=== PATIENT | female | born 1935 | race Caucasian/White ===

== ENCOUNTER 2016-06-29 21:17 | Emergency (ER) | payer MEDICARE ==
[~2016-06-29] VITALS: Ht 167.6 cm; Wt 90.7 kg
[2016-06-29] MEDS ORDERED: LEVO25TA5 (21:42)
[2016-06-29] MEDS ORDERED: ASPIRIN 81 MG CHEW TABLET PO ONE (21:45)
[2016-06-29 22:23] LABS: INR 0.9
[2016-06-29 22:25] LABS: BASO # 0.1 K/mm3 (0.0-0.2); BASO % 0.9 % (0.0-1.0); EOS # 0.4 K/mm3 (0.0-0.50); EOS % 6.2 % (0.0-3.0); LARGE UNSTAINED CELL # 0.2 K/mm3 (0.0-0.4); LARGE UNSTAINED CELL % 2.4 % (0.0-4.0); LYMPH # 2.3 K/mm3 (1.5-4.5); LYMPH % 29.2 % (24.0-44.0); MEAN CORPUSCULAR HEMOGLOBIN 30.2 pg (27.0-33.0); MEAN CORPUSCULAR HGB CONC 33.4 g/dl (32.0-36.5); MEAN CORPUSCULAR VOLUME 90.3 fl (80.0-96.0); MONO # 0.8 K/mm3 (0.0-0.8); MONO % 11.2 % (0.0-5.0); NEUTROPHILS # 3.6 K/mm3 (1.8-7.7); NEUTROPHILS % 50.2 % (36.0-66.0); PLATELET COUNT, AUTOMATED 171 k/mm3 (150-450); RED CELL DISTRIBUTION WIDTH 13.5 % (11.5-14.5); WHITE BLOOD COUNT 7.2 K/mm3 (4.0-10.0)
[2016-06-29 22:30] VITALS: BP 133/62
[2016-06-29 22:37] LABS: ANION GAP 8 MEQ/L (8-16); BLOOD UREA NITROGEN 14 MG/DL (7-18); CALCIUM LEVEL 8.3 MG/DL (8.8-10.2); CARBON DIOXIDE LEVEL 28 MEQ/L (21-32); CHLORIDE LEVEL 106 MEQ/L (98-107); CREATININE FOR GFR 0.81 MG/DL (0.55-1.02); GLOMERULAR FILTRATION RATE > 60.0 (>39); GLUCOSE, FASTING 129 MG/DL (83-110); POTASSIUM SERUM 3.7 MEQ/L (3.5-5.1); SODIUM LEVEL 142 MEQ/L (136-145)
[2016-06-29] MEDS ORDERED: ISOVUE-370 76% 100ML VIAL (Q9967) As Ordered ONE (23:25)
--- NOTE | 2016-06-29 23:50 | REPUSA ---
CT angiogram of the chest Clinical statement: Chest pain and shortness of breath. Technique: Multiple axial CT images were obtained from the thoracic inlet through the upper abdomen a fter a bolus administration of nonionic intravenous contrast. Coronal and sagittal reconstructions we re also obtained. No comparison is available. Findings: The pulmonary arteries are well-opacified with contrast, with no intraluminal filling defec ts to suggest embolism. The thoracic aorta is unremarkable. Thyroid gland is within normal limits. Th ere is no thoracic lymphadenopathy. There are no pericardial or pleural effusions. The lungs are hattie r. Limited imaging of the upper abdomen is unremarkable. There are no suspicious osseous lesions. Impression: Unremarkable CT examination of the chest. No evidence of pulmonary embolism.
--- NOTE | 2016-06-30 08:51 | REP ---
CHEST, SINGLE VIEW: There is no evidence of acute infiltrate. No pleural effusion is seen. The heart is normal in size. The mediastinal silhouette is unremarkable. The visualized osseous structures are intact. IMPRESSION: No acute pulmonary disease. Signed by Ronaldo Garces MD 06/30/2016 10:13 A
--- NOTE | 2016-06-30 11:07 | ECGEPIP ---
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
--- NOTE | 2016-07-01 20:03 | ECGEPIP ---
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
== END 2016-06-30 03:06 | disposition home or self-care (01) ==
LOC: M ED 21:54
DX: R07.9 Chest pain, unspecified (principal); R06.02 Shortness of breath; Z86.73 Personal history of transient ischemic attack (TIA), and cerebral infarction without residual deficits
CPT/HCPCS: 71010; 71275; 80048; 82550; 82553; 83880; 84484; 85025; 85610; 93005; 93041; 94760; 99285; Q9967

== ENCOUNTER 2016-07-09 11:56 | Inpatient (IN) | payer MEDICARE ==
[~2016-07-09] VITALS: Ht 167.6 cm; Wt 103.2 kg
[2016-07-09] MEDS: MULTIVITAMINS/MINERALS THERAP 1 TAB PO SCH (09:00)
[2016-07-09] MEDS: THIAMINE 100 MG TAB PO SCH (09:00)
[2016-07-09] MEDS: FOLIC ACID 1 MG TAB PO SCH (09:00)
[~2016-07-09 11:56] MED LIST: LEVO25TA5 PO
[2016-07-09] MEDS ORDERED: ONDANSETRON 4MG/2ML VIAL (J2405) IV ONE (13:15)
[2016-07-09] MEDS ORDERED: NS 1,000 ML IV SCH (13:15)
[2016-07-09] MEDS ORDERED: NS 500 ML IV ONE (13:30)
[2016-07-09] MEDS ORDERED: PROMETHAZINE INJ 25 MG/ML VIAL (J2550) IV ONE (13:30)
--- NOTE | 2016-07-09 13:36 | REP ---
Chest x-ray: Two views. History: Fever and cough. Comparison chest x-ray June 29, 2016. Findings: EKG monitoring electrodes overlie the chest. Lungs are well inflated and clear. The pleural angles are sharp. Heart is not enlarged. The aorta is somewhat tortuous. Pulmonary vasculature is not increased. Impression: No active disease. Signed by Pricne Youngblood MD 07/09/2016 02:05 P
[2016-07-09 13:40] LABS: ANION GAP 12 MEQ/L (8-16); BLOOD UREA NITROGEN 16 MG/DL (7-18); CALCIUM LEVEL 8.4 MG/DL (8.8-10.2); CARBON DIOXIDE LEVEL 23 MEQ/L (21-32); CHLORIDE LEVEL 106 MEQ/L (98-107); CREATININE FOR GFR 1.05 MG/DL (0.55-1.02); GLOMERULAR FILTRATION RATE 53.8 (>39); GLUCOSE, FASTING 98 MG/DL (83-110); POTASSIUM SERUM 3.9 MEQ/L (3.5-5.1); SODIUM LEVEL 141 MEQ/L (136-145)
[2016-07-09 13:55] LABS: MEAN CORPUSCULAR HGB CONC 34.5 g/dl (32.0-36.5); MEAN CORPUSCULAR VOLUME 89.9 fl (80.0-96.0); PLATELET COUNT, AUTOMATED 159 k/mm3 (150-450); RED CELL DISTRIBUTION WIDTH 13.3 % (11.5-14.5); WHITE BLOOD COUNT 9.4 K/mm3 (4.0-10.0)
[2016-07-09] MEDS ORDERED: VANCOMYCIN HCL 1,000 MG, VIAL MATE ADAPTER 1 EACH in D5W 250 ML IV ONE (14:00)
[2016-07-09] MEDS ORDERED: NS IV ONE (14:00)
[2016-07-09] MEDS ORDERED: ACETAMINOPHEN 650 MG SUPP PR ONE (14:00)
[2016-07-09] MEDS ORDERED: CEFEPIME HCL 2 GM in D5W MINI-BAG PLUS 50 ML IV ONE (14:00)
[2016-07-09] MEDS ORDERED: DILUENT IV ONE (14:00)
[2016-07-09 14:19] LABS: BANDS 2 % (< 11); PLATELET CLUMPS SMALL AMT
[2016-07-09 14:30] LABS: ABG BASE EXCESS -3.6 (-2.0-2.0); ABG PARTIAL PRESSURE CO2 32.1 mmHg (35.0-45.0); ABG PARTIAL PRESSURE O2 78.5 mmHg (75.0-100.0); ABG STANDARD HCO3 21.5 MEQ/L (22.0-26.0); ABG pH (ARTERIAL) 7.412 UNITS (7.350-7.450)
[2016-07-09] MEDS ORDERED: MORPHINE 2 MG/ML 1ML SYRINGE IV PRN (15:45)
[2016-07-09] MEDS ORDERED: GLUC1CAP9 PO (15:56)
[2016-07-09] MEDS ORDERED: VITA100066 PO (15:56)
--- NOTE | 2016-07-09 16:16 | HPE ---
DATE OF ADMISSION: 07/09/2016 PRIMARY CARE PROVIDER: Dr. Noguera. CODE STATUS: Full code. CHIEF COMPLAINT: Abdominal pain. HISTORY OF PRESENT ILLNESS: Nausea, vomiting, abdominal pain with cramping, subjective fevers, chills, shakes for the last two days. She had a bowel movement this morning without any difficulty. Denied any hematochezia or melena. She has had some frequency but no dysuria or hematuria. She stated that she was seen in the emergency department approximately 10 days ago for chest complaints and her workup was negative for acute coronary syndrome or any other organic causes at that time. Her is with her presently. He stated that he has noticed over the last couple of days that she has had these subjective fevers, chills or rigors, and abdominal pain as stated above and he decided to bring her in today because she was having difficulty maintaining oral intake and had continued to run fevers at home unresponsive to Tylenol. PAST MEDICAL HISTORY: Hypothyroidism, osteoarthritis and questionable irritable bowel syndrome. PAST SURGICAL HISTORY: Status post appendectomy, right knee surgery. FAMILY HISTORY: Noncontributory. SOCIAL HISTORY: She is . She quit smoking 50 years ago. She drinks vodka with lemon juice 2-3 times a week, sometimes more. She denies recent travel, sick contacts. ALLERGIES: No known drug allergies. CURRENT HOME MEDICATIONS: Are listed as Synthroid 25 mcg daily. REVIEW OF SYSTEMS: CONSTITUTIONAL: As indicated above. She has had subjective fevers, chills, rigors with sweats throughout the day and decreased appetite. HEENT: She denies lightheaded, dizziness, blurry vision, double vision, and no difficulty with speech or swallow. PULMONARY: She denies productive sputum, cough or hemoptysis or wheeze. CARDIOVASCULAR: She denies substernal chest pain. She denies paroxysmal nocturnal dyspnea (PND), orthopnea or lower extremity edema. Gastrointestinal (GI): She has had some nausea, vomiting, some back pain. She states bowel movements have been regular. She denies any hematochezia or melena. GENITOURINARY (): No dysuria or hematuria. MUSCULOSKELETAL: Generalized weakness with no bone pain, muscle swelling or erythema. NEUROLOGIC: No paresthesias or paralysis. ENDOCRINE: Negative for diabetes. Positive for thyroid disorder. LYMPHATIC: She denies neck swelling, swelling in the groin or night sweats or weight loss outside of her subjective fevers. HEMATOLOGY: No history of bleeding, bruising disorder. No prior history of venous thromboembolism. ONCOLOGY: No prior history of cancer. PSYCHIATRIC: No history of depression, anxiety. She denies suicidal ideation. No audiovisual hallucinations. She does, however, indicate that she does drink alcohol on almost a daily basis. Review of systems complete. Pertinent positives are listed above. PHYSICAL EXAMINATION: VITAL SIGNS: Temperature is 101.2 orally, pulse 84, blood pressure 153/88, SPO2 is 95% on room air. GENERAL: The patient appears to be in no acute distress. She is alert and oriented, pleasant to talk to. HEENT: Head is atraumatic, normocephalic. Eyes: Pupils equal, round, reactive to light and accommodation. Throat clear. NECK: Supple. LUNGS: Clear. HEART: Regular rate and rhythm. ABDOMEN: She does have some vague palpable tenderness across the lower abdomen with suprapubic tenderness. Positive bowel sounds. No masses or rebound. BACK : Shows no costovertebral angle tenderness. EXTREMITIES: No edema. No calf tenderness. NEUROLOGIC: Cranial nerves II-XII are grossly intact. No gross neurosensory deficits noted. LABORATORY AND DIAGNOSTICS: White count is 9.4, hemoglobin 14.3, platelets are 159,000. Sodium is 141, potassium 3.9, chloride 106, bicarb 23, anion gap 12, BUN 16, creatinine 1.05, glucose 98, lactic acid 3.3. CK is 99, CK-MB is 1.6, troponin 0.03. CRP is less than 0.30. ABG shows a blood gas with pH of 7.412, pCO2 32.1, pO2 of 78.5. Urinalysis 2+ blood, positive nitrates, 1+ leukocyte esterase, 38 WBC, 2+ bacteria. Culture Is pending at this time. Blood cultures pending times two. Influenza A and B are negative. Chest x-ray: No active disease. No cardiopulmonary abnormalities noted. IMPRESSION: Ms. Davis is a 80-year-old female who presents to the emergency department after having two days of increased lethargy, subjective fevers at home and does appear to be somewhat septic with a lactic acidosis in the emergency department. We will plan on admitting her to observation overnight. Will bolus with intravenous (IV) fluids. She did receive some fluid already in the emergency department. She will need some antibiotics as well. PROBLEM LIST: 1. Urinary tract infection. 2. Sepsis. 3. Hypothyroidism. 4. Osteoarthritis. 5. History of irritable bowel syndrome. 6. History of alcohol use. PLAN: The patient will be admitted to the progressive care unit (PCU) with sepsis protocol and placed per Dr. Timmons's service. Will repeat lactic acid in six hours. She has had 2.5 liters of normal saline at this point. Will continue on normal saline 80 mL an hour. Change her antibiotic coverage to Rocephin. Check blood cultures, urine culture. Continue home medications. Will also start her on thiamine, folic acid, multivitamin, Serax as needed for agitation and monitor for alcohol withdrawal. Deep venous thrombosis (DVT) prophylaxis as Lovenox. DISPOSITION: Anticipate home discharge tomorrow pending any further complications. JACINDA
[2016-07-09] MEDS: NS 1,000 ML IV SCH (17:22)
[2016-07-09 19:55] VITALS: BP 115/63
[2016-07-09] MEDS: cefTRIAXone SOD 1 GM in D5W MINI-BAG PLUS 50 ML IV SCH (20:21)
[2016-07-09] MEDS: DOCUSATE SODIUM 100 MG CAP PO SCH (20:22)
[2016-07-09] MEDS: ACETAMINOPHEN TAB 650MG DOSE (2X325MG) PO PRN (20:22)
[2016-07-09] MEDS: IBUPROFEN 600 MG TAB PO PRN (20:23)
[2016-07-09 23:17] VITALS: BP 98/54
[2016-07-10] VITALS (8 sets, daily range): BP systolic 92–144; BP diastolic 48–67
[2016-07-10] MEDS: ACETAMINOPHEN TAB 650MG DOSE (2X325MG) PO PRN (01:41)
[2016-07-10] MEDS: NS 1,000 ML IV SCH ×3 (04:19→17:48)
[2016-07-10 05:41] LABS: CALCIUM LEVEL 7.5 MG/DL (8.8-10.2); CREATININE FOR GFR 1.53 MG/DL (0.55-1.02); GLOMERULAR FILTRATION RATE 34.9 (>39); POTASSIUM SERUM 4.1 MEQ/L (3.5-5.1)
[2016-07-10] MEDS: LEVOTHYROXINE 0.025 MG TAB (25 MCG) PO SCH (05:54)
[2016-07-10] MEDS: CALCIUM CARBONATE 500 MG CHEW U/D PO PRN ×2 (06:53)
[2016-07-10 07:10] LABS: MEAN CORPUSCULAR HEMOGLOBIN 30.5 pg (27.0-33.0); MEAN CORPUSCULAR HGB CONC 33.2 g/dl (32.0-36.5); MEAN CORPUSCULAR VOLUME 92.1 fl (80.0-96.0); RED CELL DISTRIBUTION WIDTH 13.8 % (11.5-14.5); WHITE BLOOD COUNT 22.5 K/mm3 (4.0-10.0)
[2016-07-10] MEDS: ENOXAPARIN 40 MG/0.4 ML SYRINGE (J1650) SC SCH (08:15)
[2016-07-10] MEDS ORDERED: SODIUM CHLORIDE 0.9% 1000 ML IV ONE (08:30)
[2016-07-10] MEDS: OXAZEPAM 10 MG CAP PO PRN (09:09)
[2016-07-10] MEDS: MULTIVITAMINS/MINERALS THERAP 1 TAB PO SCH (09:09)
[2016-07-10] MEDS: FOLIC ACID 1 MG TAB PO SCH (09:09)
[2016-07-10] MEDS: IBUPROFEN 600 MG TAB PO PRN (09:10)
[2016-07-10] MEDS: DOCUSATE SODIUM 100 MG CAP PO SCH ×2 (09:10→21:00)
[2016-07-10] MEDS: THIAMINE 100 MG TAB PO SCH (09:10)
[2016-07-10] MEDS: PERCOCET 5MG/325MG TAB PO PRN ×3 (10:13→21:00)
[2016-07-10 12:58] LABS: INR 1.48
[2016-07-10 13:13] LABS: ALBUMIN 2.8 GM/DL (3.2-5.2); ALBUMIN/GLOBULIN RATIO 0.97 (1.00-1.93); BILIRUBIN,DIRECT 0.2 MG/DL (0.0-0.2); BILIRUBIN,TOTAL 0.5 MG/DL (0.2-1.0); TOTAL PROTEIN 5.7 GM/DL (6.4-8.2)
--- NOTE | 2016-07-10 14:15 | IPN ---
DATE: 07/10/2016 This is a 80-year-old female admitted yesterday for acute onset abdominal pain, urinary tract infection and sepsis. No overnight issues were reported. She denies chest pain, nausea, vomiting. She feels that her abdominal pain and back pain is much improved from yesterday. OBJECTIVE: Temperature is 99.3, pulse 79, respiratory rate 20, blood pressure 92/48, SpO2 is 98% on room air. GENERAL: The patient appears to be in no acute distress. She is alert, pleasant. HEENT: Unremarkable. LUNGS: Clear to auscultation. HEART: Regular rate and rhythm. ABDOMEN: Vague suprapubic tenderness. Positive bowel sounds. No masses. No rebound. No CVA tenderness. White count is 22.5, hemoglobin 12.2, platelets 83,000. Sodium is 141, potassium 4.1, chloride 108, bicarb 21, anion gap 12, BUN is 22, creatinine 1.53, glucose 97, lactic acid 3.9 this morning down from 4.8. Blood cultures preliminary on one did show gram negative rods. The other blood culture is pending. Urine culture pending at this time. Influenza A and B negative. ASSESSMENT/PLAN: 1. Sepsis with lactic acidosis related to urinary tract infection. Continue with current antibiotics. Preliminary blood culture is positive for gram-negative rods. The Rocephin should cover this nicely. She remains afebrile. Will go ahead and give her another bolus today due to having slightly low pressures, but we will want to keep an eye on this and see how she does throughout the day. 2. Thrombocytopenia. Will hold heparin. Will go ahead and check a fibrinogen level on her as well as a liver profile and coagulopathy studies. My concern is that she may be at risk for DIC. 3. Hypothyroidism. Continue on Synthroid. 4. Osteoarthritis. Stable. 5. History of possible irritable bowel syndrome. No issues currently. 6. History of alcohol use. She did have some slight agitation this morning. We do have p.r.n. Serax ordered as well as thiamine, multivitamin and folic acid. DISPOSITION: The patient does continue to be quite ill at this point. Her prognosis is guarded, however, will continue to follow her closely through the day today to see if we need to make any further adjustments. [facility]
--- NOTE | 2016-07-10 19:46 | ECGEPIP ---
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
[2016-07-10] MEDS: cefTRIAXone SOD 1 GM in D5W MINI-BAG PLUS 50 ML IV SCH (20:59)
[2016-07-11] VITALS (16 sets, daily range): BP systolic 100–170; BP diastolic 62–94
[2016-07-11] MEDS ORDERED: METOPROLOL 5 MG/5 ML VIAL IV STA (02:09)
[2016-07-11] MEDS: NS 1,000 ML IV SCH ×2 (03:06→12:20)
[2016-07-11] MEDS: LEVOTHYROXINE 0.025 MG TAB (25 MCG) PO SCH (05:17)
[2016-07-11 05:59] LABS: CALCIUM LEVEL 8.3 MG/DL (8.8-10.2); CREATININE FOR GFR 1.19 MG/DL (0.55-1.02); GLOMERULAR FILTRATION RATE 46.6 (>39); POTASSIUM SERUM 3.7 MEQ/L (3.5-5.1)
[2016-07-11 06:06] LABS: MEAN CORPUSCULAR VOLUME 93.7 fl (80.0-96.0); RED CELL DISTRIBUTION WIDTH 14.2 % (11.5-14.5); WHITE BLOOD COUNT 20.2 K/mm3 (4.0-10.0)
[2016-07-11] MEDS: OXAZEPAM 10 MG CAP PO PRN ×2 (07:19→18:07)
[2016-07-11] MEDS: THIAMINE 100 MG TAB PO SCH (08:46)
[2016-07-11] MEDS: MULTIVITAMINS/MINERALS THERAP 1 TAB PO SCH (08:47)
[2016-07-11] MEDS: DOCUSATE SODIUM 100 MG CAP PO SCH ×2 (08:47→21:58)
[2016-07-11] MEDS: FOLIC ACID 1 MG TAB PO SCH (08:47)
[2016-07-11] MEDS: ENOXAPARIN 40 MG/0.4 ML SYRINGE (J1650) SC SCH (08:47)
[2016-07-11 09:44] LABS: THYROXINE (T4) 7.1 UG/DL (4.5-12.0)
[2016-07-11] MEDS: APIXABAN 5 MG TAB (ELIQUIS) PO SCH ×2 (09:56→21:58)
--- NOTE | 2016-07-11 10:58 | IPN ---
DATE: 07/11/2016 80-year-old female seen at bedside. No overnight issues. However, the nursing did call me early this morning because she was having hallucinations and went into atrial fibrillation. She denies any chest pain, nausea, vomiting, no shortness of breath and it has been 2-3 days since she last had her vodka which we did have a discussion the emergency department yesterday about cessation of alcohol. OBJECTIVE: It was earlier 110-112 and irregular, respiratory rate is 18 and nonlabored, BP 129/83, SPO2 is 94% on room air. General: The patient appears to be in no acute distress. Is alert and oriented. HEENT: Unremarkable. Lungs: Clear to auscultation. Heart is irregular regular. Abdomen: Soft. Extremities: No edema or calf tenderness. LABORATORY DATA: White count is 20.2, hemoglobin 12.3, platelets are 69,000. Sodium is 145, potassium 3.7, chloride 116, bicarb 20, anion gap 9, BUN is 26, creatinine 1.19, glucose 117, calcium 8.3. Cardiac marker panel is pending at this time. Thyroid panel pending. 12-lead EKG a fib with RVR. I did order a 2-D echo that is pending. ASSESSMENT/PLAN: 1. Sepsis with lactic acidosis related to urinary tract infection. Continue on Rocephin. Blood cultures positive for E-coli which is pansensitive, again continue on Rocephin. 2. Thrombocytopenia. Hold on any heparin products. Continue STACIE sequentials 3. Hypothyroidism. Continue on Synthroid. Again thyroid panel is pending. 4. Osteoarthritis, stable. 5. New onset atrial fibrillation with RVR, 2-D echo is pending. I do wonder if this is related to alcohol withdrawal since she did have some mild visual hallucinations this morning, in any rate we will do a 2-D echo, 12-lead EKG, and cardiac marker panel as well as thyroid panel as outlined. 6. History of alcohol use/abuse with possible withdrawal symptoms. Continue on thiamine, folic acid, continue on as needed Serax. DISPOSITION As outlined the patient will need to have further workup for atrial fibrillation. Her CHADS VASc score is 3 and she will likely need to be anticoagulated with Eliquis. We did have a long discussion regarding cessation of alcohol and education and counseling was provided. JACINDA
[2016-07-11] MEDS: guaiFENesin ER 600 MG TAB PO PRN ×2 (13:58→21:58)
--- NOTE | 2016-07-11 15:09 | ECGEPIP ---
Stationary ECG Study [facility] Test Date: 2016-07-11 Pat Name: LIA BASILIO Department: Room: [place] [address] Gender: F Post Acute Care Nurse: ALBERT : 1935 Requested By: ARIADNA WALKER Order Number: [id number] Reading MD: Mitch Queen Measurements Intervals [place] Rate: 126 P: IA: 0 QRS: 28 QRSD: 100 T: -29 QT: 280 QTc: 406 Interpretive Statements Underlying atrial fibrillation with somewhat rapid ventricular response Nonspecific ST/T-wave abnormalities. Rhythm change from 07/09/16 Clinical correlation advised Electronically Signed On 07-11-2016 15:09:12 EDT by Mitch Queen
[2016-07-11] MEDS: cefTRIAXone SOD 1 GM in D5W MINI-BAG PLUS 50 ML IV SCH (21:57)
[2016-07-12] VITALS (7 sets, daily range): BP systolic 130–190; BP diastolic 56–102
[2016-07-12] MEDS: SODIUM CHLORIDE NASAL 0.65% SPRAY BTL (OCEAN) PRN ×2 (00:07→03:39)
[2016-07-12] MEDS: OXAZEPAM 10 MG CAP PO PRN ×4 (00:29→23:53)
[2016-07-12] MEDS: NS 1,000 ML IV SCH ×2 (03:13→04:20)
[2016-07-12] MEDS ORDERED: IPRATROPIUM 0.5MG/ALBUTEROL 2.5MG INH SOL UD 3ML (DUONEB)(J7620) NEB PRN (04:00)
[2016-07-12] MEDS: LEVOTHYROXINE 0.025 MG TAB (25 MCG) PO SCH (05:36)
[2016-07-12 06:07] LABS: MEAN CORPUSCULAR HEMOGLOBIN 30.4 pg (27.0-33.0); MEAN CORPUSCULAR HGB CONC 33.2 g/dl (32.0-36.5); MEAN CORPUSCULAR VOLUME 91.8 fl (80.0-96.0); RED CELL DISTRIBUTION WIDTH 14.2 % (11.5-14.5); WHITE BLOOD COUNT 20.9 K/mm3 (4.0-10.0)
[2016-07-12 06:08] LABS: ANION GAP 8 MEQ/L (8-16); BLOOD UREA NITROGEN 15 MG/DL (7-18); CALCIUM LEVEL 8.6 MG/DL (8.8-10.2); CARBON DIOXIDE LEVEL 19 MEQ/L (21-32); CHLORIDE LEVEL 115 MEQ/L (98-107); CREATININE FOR GFR 0.71 MG/DL (0.55-1.02); GLOMERULAR FILTRATION RATE > 60.0 (>39); GLUCOSE, FASTING 98 MG/DL (83-110); POTASSIUM SERUM 3.8 MEQ/L (3.5-5.1); SODIUM LEVEL 142 MEQ/L (136-145)
[2016-07-12] MEDS: ENOXAPARIN 40 MG/0.4 ML SYRINGE (J1650) SC SCH (09:00)
[2016-07-12] MEDS: DOCUSATE SODIUM 100 MG CAP PO SCH ×2 (09:14→20:47)
[2016-07-12] MEDS: FOLIC ACID 1 MG TAB PO SCH (09:16)
[2016-07-12] MEDS: THIAMINE 100 MG TAB PO SCH (09:16)
[2016-07-12] MEDS: MULTIVITAMINS/MINERALS THERAP 1 TAB PO SCH (09:16)
--- NOTE | 2016-07-12 09:27 | IPN ---
DATE: 07/12/2016 Rochelle seen in progressive care unit (PCU). She is on the hospitalist service. Primary care provider is Dr. Malcolm Mullins' office. She was admitted with sepsis secondary to urinary source. Has Escherichia (E) coli bacteremia and E. coli in her urine. She has remote history of urinary tract infection (UTI). She cannot tell me when this occurred. She had paroxysmal atrial fibrillation, but converted to sinus rhythm soon after admission. Has remained in sinus rhythm overnight. PHYSICAL EXAMINATION: 154/90, pulse 84, respiratory rate 22, 98 degrees, 93% oxygen saturation. GENERAL APPEARANCE: Elderly, resting comfortably. Answers a bit vague, lack content. No jugular venous distention (JVD). LUNGS: Clear. HEART: Regular rate and rhythm. No murmur. ABDOMEN: Soft, nontender. No masses. No costovertebral angle (CVA) tenderness. LABORATORIES: White count 20.9, hemoglobin 12, platelets 78. Sodium 142, potassium 3.8, BUN 15, creatinine 0.7, glucose 98. Thyroid stimulating hormone (TSH) minimally elevated at 3.9. IMPRESSION: 1. Sepsis secondary to Escherichia (E) coli urinary tract infection (UTI) and E. coli bacteremia. She is on Rocephin. It is day number four. This probably could be switched to an oral antibiotic tomorrow. Renal ultrasound has been ordered to look for obstruction. 2. Paroxysmal atrial fibrillation. I think this was secondary to sepsis. There was some discussion of possible alcohol withdrawal, as well, so I am not sure alcohol intake is really all that high. I think it is often due to sepsis. In any case, she is in sinus rhythm now and the last echocardiogram shows significant left atrial enlargement and decreased ejection fraction. This probably does not warrant shelter anticoagulant therapy. She uses a walker, was unsteady on her feet and definitely is a fall risk. 3. Hypothyroidism. Would avoid adjusting her Synthroid. Thyroid stimulating hormone (TSH) minimally elevated and it could be secondary to her illness. I will let her outpatient physician deal with that. 4. Thrombocytopenia secondary to sepsis. Heparin is held. She was started on Eliquis. As noted above, she has been in sinus rhythm since her sepsis started. I am going to stop her Eliquis. I think she is at risk for bleeding secondary to thrombocytopenia and falls. Again, her last echocardiogram shows an expected finding of increased thromboembolic risk. I am not sure that she would be that well served by shelter anticoagulation. 5. Questionable alcohol withdrawal. She is on thiamin and Serax. Alcohol intake is only a few times a week, when she used to go to the [facility]. Last appointment over two years ago (her alcohol intake at that time was listed as low). I think her altered mental status was probably from her sepsis.
--- NOTE | 2016-07-12 18:52 | ECHO ---
DATE OF PROCEDURE: 07/12/2016 REFERRING PHYSICIAN: Pawel Timmons DO INDICATION: Abnormal ECG study. HEIGHT: 168 cm WEIGHT: 92 kg DIMENSIONS: IVS: 1.1 LV: 4.2 LVPW: 1.0 LA: 4.2 Aorta: 3.1 E-prime septal velocity: 6.7 cm/s E-rime lateral velocity: 8.0 cm/s LA and systolic volume index 44.3 mm/m2 FINDINGS: Study is of good technical quality. Left ventricle is of normal size and systolic function with ejection fraction (EF) around 65-70%. No segmental wall motion abnormalities are appreciated. Right ventricle normal size and systolic function. Left atrium is severely enlarged. Right atrium appears normal. Aortic valve is has three leaflets and appears to have normal mobility. There are prominent mitral annular calcifications and thickening of mitral leaflets but the visualization was limited. I do not appreciate any mehdi prolapse based on 2-D imaging. Tricuspid valve appears normal. Pulmonic valve was not well seen. No pericardial effusion is noted. Inferior vena cava is dilated but it does collapse with respiration indicative of likely mildly elevated central venous pressure. Aortic root is normal. Aortic arch was not well seen. Abdominal aorta has prominent atherosclerosis. Doppler interrogation of aortic valve reveals no significant stenosis or insufficiency. There is approximately moderate mitral insufficiency. It is likely there is some underlying structural abnormality of mitral valve. Tricuspid valve exhibits trace to mild insufficiency. Calculated pulmonary artery pressure is at least in high 50s or low 60s which would correspond to moderately severe pulmonary hypertension. Pulmonic valve is functionally competent. Mitral inflow pattern and tissue Doppler imaging of mitral annulus reveal grade 2 diastolic dysfunction. CONCLUSIONS: 1. Study is of acceptable technical quality. 2. Normal left ventricle (LV) size and systolic function, grade 2 diastolic dysfunction. 3. Approximately moderate mitral insufficiency, likely due to underlying structural mitral valve disease, even though no distinct abnormality was seen by 2-D imaging. 4. Elevated central venous pressure. 5. Likely moderately severe pulmonary hypertension. COMMENT: Subacute bacterial endocarditis (SBE) prophylaxis is not recommended.
[2016-07-12] MEDS: cefTRIAXone SOD 1 GM in D5W MINI-BAG PLUS 50 ML IV SCH (20:47)
[2016-07-13 00:10] VITALS: BP 171/84
[2016-07-13] MEDS: guaiFENesin ER 600 MG TAB PO PRN (02:59)
[2016-07-13 04:00] VITALS: BP 145/77
[2016-07-13 05:58] LABS: MEAN CORPUSCULAR HEMOGLOBIN 29.9 pg (27.0-33.0); MEAN CORPUSCULAR VOLUME 90.6 fl (80.0-96.0); RED CELL DISTRIBUTION WIDTH 14.3 % (11.5-14.5); WHITE BLOOD COUNT 14.7 K/mm3 (4.0-10.0)
[2016-07-13 06:03] LABS: ANION GAP 9 MEQ/L (8-16); BLOOD UREA NITROGEN 13 MG/DL (7-18); CALCIUM LEVEL 8.6 MG/DL (8.8-10.2); CARBON DIOXIDE LEVEL 25 MEQ/L (21-32); CHLORIDE LEVEL 109 MEQ/L (98-107); GLOMERULAR FILTRATION RATE > 60.0 (>39); GLUCOSE, FASTING 104 MG/DL (83-110); POTASSIUM SERUM 3.2 MEQ/L (3.5-5.1); SODIUM LEVEL 143 MEQ/L (136-145)
[2016-07-13] MEDS: LEVOTHYROXINE 0.025 MG TAB (25 MCG) PO SCH (06:10)
[2016-07-13] MEDS: SODIUM CHLORIDE NASAL 0.65% SPRAY BTL (OCEAN) PRN (06:11)
[2016-07-13 07:30] VITALS: BP 120/72
[2016-07-13] MEDS: THIAMINE 100 MG TAB PO SCH (09:28)
[2016-07-13] MEDS: MULTIVITAMINS/MINERALS THERAP 1 TAB PO SCH (09:28)
[2016-07-13] MEDS: DOCUSATE SODIUM 100 MG CAP PO SCH ×2 (09:28→21:00)
[2016-07-13] MEDS: ENOXAPARIN 40 MG/0.4 ML SYRINGE (J1650) SC SCH (09:28)
[2016-07-13] MEDS: FOLIC ACID 1 MG TAB PO SCH (09:28)
--- NOTE | 2016-07-13 09:34 | REP ---
RENAL ULTRASOUND: Real-time sonographic evaluation of the kidneys performed. The kidneys are normal in size, right kidney measuring 11.5 x 5.9 x 5.0 cm and left kidney 10.3 x 6.1 5.7 cm. There is mild bilateral hydronephrosis. No gross mass or calculus is seen. The study is limited due to body habitus. Urinary bladder is mildly distended and grossly unremarkable. IMPRESSION: There appears to be mild bilateral hydronephrosis. Signed by Ronaldo Garces MD 07/13/2016 03:29 P
[2016-07-13 11:30] VITALS: BP 127/66
[2016-07-13] MEDS ORDERED: POTASSIUM CHLORIDE 10 MEQ SR TABLET PO ONE (13:00)
--- NOTE | 2016-07-13 13:49 | IPN ---
DATE: 07/13/2016 SUBJECTIVE: The patient tells me that she is feeling better today. She has no specific complaints. She denies any chest pain, shortness of breath, fevers, chills, nausea, vomiting, or diarrhea. OBJECTIVE: VITAL SIGNS: Temperature is 97.8, maximum temperature (t-max) 100.0, pulse 76, respiratory rate 18, blood pressure 127/66, oxygen saturation 98% on room air. GENERAL: She is a very pleasant, elderly, female ambulating around her room with a walker. She does not appear to be in any acute distress. She is accompanied by her significant other, who is rather cantankerous. HEENT: Cranial nerves II through XII are grossly intact. She has moist mucous membranes. No elevation in central venous pressure. CARDIOVASCULAR EXAM: S1, S2 regular. RESPIRATORY EXAM: Clear. ABDOMINAL EXAM: Benign. EXTREMITIES: No clubbing, cyanosis or edema. LABORATORY STUDIES: WBC 14.7, down from 20.9, hemoglobin 11.1, hematocrit 33.7, platelet count 94, up from 78. Chemistry panel: Sodium 143, potassium 3.2, repleted, chloride 109, bicarbonate 25, BUN 13, creatinine 0.7. Microbiology: She has urine culture from 17th and blood culture from the 17th positive for Escherichia (E) coli . No new imaging. Echocardiogram revealed normal left ventricular systolic function; however, grade II diastolic dysfunction. Elevated central venous pressure. ASSESSMENT AND PLAN: This is a 80-year-old female with severe sepsis secondary to E coli urinary tract infection and bacteremia. 1. E coli bacteremia, sepsis. The patient is improving on Rocephin. We will continue her on IV antibiotics. Renal ultrasound has been ordered by Dr. Medina to evaluate for stones. We will follow this. The patient also had a low grade temperature. We would like to see her 24 hours fever free prior to any dispositioning. Otherwise, her sepsis does appear to be resolving. 2. Heparin products. The patient is on sequential compression device (SCD) and TEDs. Does appear to be improving. Likely secondary to sepsis syndrome. Continue to monitor. Her TSH was slightly elevated at the time of admission. Recommend rechecking in the outpatient setting after acute medical illness has resolved. 3. New onset atrial fibrillation. Likely related to sepsis syndrome. An echocardiogram does not reveal any significant valvular dysfunction to suggest that this is valvular atrial fibrillation. She remains in sinus rhythm, at this time we will hold off on any further anticoagulation. I will transfer her to the medical surgical floor. She is advised about the signs and symptoms of atrial fibrillation, to seek out emergency medical help should she ever have these again in the future. 4. History of alcohol abuse. She is on multivitamin and Serax and thiamine. She is not exhibiting any symptoms of alcohol withdrawal. She did receive Serax. She did complain of having some hallucinations. As such, for the time being, I will discontinue her Serax. We will simply monitor for any withdrawal symptoms and treat her if needed. 5. Deep vein thrombosis (DVT) prophylaxis. Given that her platelets are less than 100, otherwise we will hold her Lovenox that she has been receiving. DISPOSITION: The patient is being transferred to the medical/surgical floor. As such, she may be discharged within the next 24 to 48 hours. We will continue to follow her closely.
[2016-07-13] MEDS ORDERED: OXAZEPAM 15 MG CAP PO ONE (18:30)
[2016-07-13] MEDS ORDERED: OXAZEPAM 10 MG CAP PO PRN (19:00)
[2016-07-13] MEDS: cefTRIAXone SOD 1 GM in D5W MINI-BAG PLUS 50 ML IV SCH (21:00)
[2016-07-13 23:52] VITALS: BP 187/114
[2016-07-13 23:55] VITALS: BP 172/90
[2016-07-14 04:00] VITALS: BP 136/65
[2016-07-14] MEDS: LEVOTHYROXINE 0.025 MG TAB (25 MCG) PO SCH (05:35)
[2016-07-14] MEDS: OXAZEPAM 10 MG CAP PO SCH ×3 (06:00→20:03)
[2016-07-14 06:03] LABS: MEAN CORPUSCULAR HEMOGLOBIN 29.4 pg (27.0-33.0); MEAN CORPUSCULAR HGB CONC 33.4 g/dl (32.0-36.5); MEAN CORPUSCULAR VOLUME 88.1 fl (80.0-96.0); RED CELL DISTRIBUTION WIDTH 14.2 % (11.5-14.5); WHITE BLOOD COUNT 12.4 K/mm3 (4.0-10.0)
[2016-07-14 06:18] LABS: ANION GAP 10 MEQ/L (8-16); BLOOD UREA NITROGEN 10 MG/DL (7-18); CALCIUM LEVEL 8.5 MG/DL (8.8-10.2); CARBON DIOXIDE LEVEL 24 MEQ/L (21-32); CHLORIDE LEVEL 109 MEQ/L (98-107); CREATININE FOR GFR 0.56 MG/DL (0.55-1.02); GLOMERULAR FILTRATION RATE > 60.0 (>39); GLUCOSE, FASTING 113 MG/DL (83-110); MAGNESIUM LEVEL 1.5 MG/DL (1.8-2.4); POTASSIUM SERUM 3.1 MEQ/L (3.5-5.1); SODIUM LEVEL 143 MEQ/L (136-145)
[2016-07-14] MEDS ORDERED: MAG SULF 1GM/100ML (MAG RUN) 1 GM in APPROPRIATE DILUENT 1 EA IV ONE (06:45)
[2016-07-14] MEDS ORDERED: POTASSIUM CHLORIDE 10 MEQ SR TABLET PO ONE (06:45)
[2016-07-14 08:00] VITALS: BP 145/93
[2016-07-14] MEDS ORDERED: LORazepam 2 MG/ML VIAL (J2060) IV STA (08:44)
[2016-07-14] MEDS: cefTRIAXone SOD 1 GM in D5W MINI-BAG PLUS 50 ML IV SCH (09:00)
[2016-07-14] MEDS: DOCUSATE SODIUM 100 MG CAP PO SCH ×2 (09:00→20:03)
[2016-07-14] MEDS: MULTIVITAMINS/MINERALS THERAP 1 TAB PO SCH (09:00)
[2016-07-14] MEDS: FOLIC ACID 1 MG TAB PO SCH (09:00)
[2016-07-14] MEDS: APIXABAN 5 MG TAB (ELIQUIS) PO SCH ×2 (09:00→20:03)
[2016-07-14] MEDS: THIAMINE 100 MG TAB PO SCH (09:00)
[2016-07-14] MEDS ORDERED: LORazepam 2 MG/ML VIAL (J2060) IM STA (10:19)
--- NOTE | 2016-07-14 13:44 | IPNPDOC ---
Date Seen The patient was seen on 07/14/16. Progress Note Overnight events: The patient was very agitated and did get a code 25 called in order to ensure medication SUBJECTIVE: Patient patient tells me that she is on [place] that we are torturing her she tells me she does not want any further medications or treatments. She tells me she does not like the way that she is being recorded all her conversations and that she does not like being on camera as she is right now at all times OBJECTIVE PHYSICAL EXAMINATION: Limited as the patient refuses physical exam VITAL SIGNS: Please see below. GENERAL: Elderly female sitting on the edge of the bed she does not appear to be in any acute distress patient declines exam. She is awake alert she is oriented to person and place but declines to answer questions regarding orientation to time or situation LABORATORY DATA: Please see below. MICROBIOLOGY: Please see below. IMAGING: Patient had a renal ultrasound reveals mild bilateral hydronephrosis but the study was limited due to body habitus DVT prophylaxis ordered?: Patient is on Eliquis however she is refusing it at this time ASSESSMENT AND PLAN: This is a 80-year-old female with an Escherichia coli bacteremia and sepsis syndrome with associated metabolic encephalopathy. PROBLEMS: 1. Sepsis secondary urinary source: Patient does not appear to have any gross obvious stone or structural obstruction. She is improving with antibiotics she is afebrile she has had no further fevers. Her leukocytosis is resolving. The patient is currently refusing all medications secondary to her encephalopathy and paranoid delusions place a psychiatry consultation 2. Metabolic encephalopathy: The patient has acute mental status changes today, she was reportedly having visual hallucinations yesterday the patient and her retail performance specialist felt that it may be related to the serax she was receiving for alcohol withdrawal and I did discontinue this medication however after several hours her symptoms became worse with paranoid delusions and I suspect that this may be related to alcohol withdrawal delirium although despite not exhibiting any other signs or symptoms of cardinal features of delirium tremens I did discuss case with Dr. Herron who expresses similar concern Dr. Herron will see the patient this afternoon. As per her recommendation I have started the patient on IM Ativan and treating the patient against her will at this time I suspect that she does have delirium and agree with Dr. Herron with her current plan of care I have spoken with the patient's retail performance specialist who is bedside have also called spoken with her son Mr. Marquez [phone]. However the present time the patient is declining all care refusing all medications 3. Alcohol withdrawal: With both patient and restart on Serax we have provided her with IM Ativan she may require further IM Ativan she is on thiamine and folate and multivitamin vitamin. 4. Atrial fibrillation: Paroxysmal in nature the patient did present in atrial fibrillation was briefly on Eliquis was discontinued as she was in a sinus rhythm as well that this may be related to sepsis syndrome. However at this time I suspect may be related to alcohol withdrawal since she has had several episodes of it and echocardiogram is been checked which is unrevealing for any valvular dysfunction she's been restarted on Eliquis she is currently in sinus rhythm and once again currently refusing all medications secondary to encephalopathy/delirium. 5. Thrombocytopenia: Likely secondary to sepsis syndrome and does appear to be improving with treatment the patient restarted on Eliquis DISPOSITION: Currently the patient is exhibiting acute delirium with poor insight into her condition we're continuing to treat her aggressively will work her up her family has been involved in the plan of care. VS, I&O, 24H, [facility] Vital Signs/I&O Vital Signs Date Time Temp Pulse Resp B/P Pulse Ox O2 Delivery O2 Flow Rate FiO2 07/14/16 08:00 97.2 92 18 145/93 94 Room Air 07/12/16 03:46 1.0 I&O- Last 24 Hours up to 6 AM 07/14/16 06:00 Intake Total 600 ml Output Total 1400 ml Balance -800 ml Laboratory Data 24H LABS Laboratory Tests 2 07/14/16 05:28: Anion Gap 10, Blood Urea Nitrogen 10, Creatinine 0.56, Sodium Level 143, Potassium Level 3.1L, Chloride Level 109H, Carbon Dioxide Level 24, Calcium Level 8.5L, Glomerular Filtration Rate > 60.0, Magnesium Level 1.5L CBC/BMP Laboratory Tests 07/14/16 05:28 Calcium Level 8.5 L, Red Blood Count 4.33, Mean Corpuscular Volume 88.1, Mean Corpuscular Hemoglobin 29.4, Mean Corpuscular Hemoglobin Concent 33.4, Red Cell Distribution Width 14.2 Microbiology Microbiology 07/09/16 Blood Culture - Final, Complete Escherichia Coli 07/09/16 Blood Culture - Final, Complete Escherichia Coli 07/09/16 Influenza Virus Type A Antigen - Final, Complete 07/09/16 Influenza Virus Type B Antigen - Final, Complete 07/09/16 Urine Culture - Final, Complete Escherichia Coli CORRINE SANABRIA MD Jul 14, 2016 13:44
[2016-07-14 20:00] VITALS: BP 150/75
[2016-07-15] MEDS: OXAZEPAM 10 MG CAP PO SCH ×3 (06:01→21:51)
[2016-07-15] MEDS: LEVOTHYROXINE 0.025 MG TAB (25 MCG) PO SCH (06:01)
[2016-07-15 08:05] LABS: MEAN CORPUSCULAR HEMOGLOBIN 29.7 pg (27.0-33.0); MEAN CORPUSCULAR HGB CONC 33.9 g/dl (32.0-36.5); MEAN CORPUSCULAR VOLUME 87.7 fl (80.0-96.0); RED CELL DISTRIBUTION WIDTH 14.2 % (11.5-14.5); WHITE BLOOD COUNT 13.1 K/mm3 (4.0-10.0)
[2016-07-15 08:16] LABS: ANION GAP 9 MEQ/L (8-16); BLOOD UREA NITROGEN 11 MG/DL (7-18); CARBON DIOXIDE LEVEL 26 MEQ/L (21-32); CHLORIDE LEVEL 106 MEQ/L (98-107); CREATININE FOR GFR 0.55 MG/DL (0.55-1.02); GLOMERULAR FILTRATION RATE > 60.0 (>39); GLUCOSE, FASTING 108 MG/DL (83-110); MAGNESIUM LEVEL 1.7 MG/DL (1.8-2.4); SODIUM LEVEL 141 MEQ/L (136-145)
[2016-07-15] MEDS: APIXABAN 5 MG TAB (ELIQUIS) PO SCH ×2 (08:54→21:51)
[2016-07-15] MEDS: FOLIC ACID 1 MG TAB PO SCH (08:54)
[2016-07-15] MEDS: MULTIVITAMINS/MINERALS THERAP 1 TAB PO SCH (08:54)
[2016-07-15] MEDS: DOCUSATE SODIUM 100 MG CAP PO SCH ×2 (08:54→21:51)
[2016-07-15] MEDS: THIAMINE 100 MG TAB PO SCH (08:54)
[2016-07-15] MEDS: cefTRIAXone SOD 1 GM in D5W MINI-BAG PLUS 50 ML IV SCH (08:55)
[2016-07-15] MEDS: PERCOCET 5MG/325MG TAB PO PRN (08:56)
--- NOTE | 2016-07-15 09:36 | REP ---
CT HEAD WITHOUT CONTRAST: HISTORY: Mental status change. An area of decreased attentuation is present in the right parietal lobe. This represents an old infarction. Areas of decreased attentuation are present in the periventricular and subcortical white matter. This represents small vessel ischemic disease. There is no intraparenchymal hemorrhage, mass, or midline shift. The ventricular system and cortical sulci are dilated consistent with mild volume loss. There is no extracerebral collection. The visualized sinuses are clear. IMPRESSION: 1. 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 2. Small vessel ischemic disease. 3. Mild volume loss. Signed by Brian Bull MD 07/15/2016 10:02 A
[2016-07-15] MEDS: MAG SULF 1GM/100ML (MAG RUN) 1 GM in APPROPRIATE DILUENT 1 EA IV SCH ×2 (09:59→10:52)
[2016-07-15] MEDS ORDERED: POTASSIUM CHLORIDE 10 MEQ SR TABLET PO ONE ×2 (10:00→15:00)
--- NOTE | 2016-07-15 12:52 | IPNPDOC ---
Date Seen The patient was seen on 07/15/16. Progress Note SUBJECTIVE: Patient is oriented to person place time and to situation this AM. She does not remember the details of yesterday other than that she was very tired and very frustrated and irritable. The patient tells me she slept very well last night she feels much like her usual self. She tells me that she is willing to accept all medical therapies and medications cooperate with care and denies any specific complaints at this time. She denies chest pain shortness of breath fevers chills nausea vomiting or diarrhea OBJECTIVE PHYSICAL EXAMINATION: VITAL SIGNS: Please see below. GENERAL: Elderly female sitting on the edge of the bed she does not appear to be in any acute distress patient declines exam. She is awake alert she is oriented to person and place but declines to answer questions regarding orientation to time or situation HEENT: Pupils equally round reactive to light she has a fairly flat affect and prolonged eye contact Cardiovascular exam: S1-S2 regular Respiratory exam: Clear to auscultation bilaterally Extremities: No clubbing cyanosis or edema LABORATORY DATA: Please see below. MICROBIOLOGY: Please see below. IMAGING: Patient had a renal ultrasound reveals mild bilateral hydronephrosis but the study was limited due to body habitus DVT prophylaxis ordered?: Patient is on Eliquis ASSESSMENT AND PLAN: This is a 80-year-old female with an Escherichia coli bacteremia and sepsis syndrome and associated metabolic encephalopathy. PROBLEMS: 1. Sepsis secondary urinary source: Patient does not appear to have any gross obvious stone or structural obstruction. She is improving with antibiotics she is afebrile and doing quite well. The patient is agreeable for medical therapies 2. Metabolic encephalopathy: Resolving likely related to alcohol withdrawal symptoms possibly exacerbated by and her active infection. Consult was placed to Dr. Herron yesterday he tells me she will see the patient today. The patient does appear to be markedly improved today 3. Alcohol withdrawal: The patient did receive IM Ativan following this yesterday evening she was agreeable to taking by mouth Serax with the aid of her son since then she slept well and has been taking regularly scheduled Serax. She's continued on thiamine and multivitamin and folic acid 4. Atrial fibrillation: Paroxysmal in nature the patient did present in atrial fibrillation was briefly on Eliquis was discontinued as she was in a sinus rhythm as well that this may be related to sepsis syndrome. However at this time I suspect may be related to alcohol withdrawal since she has had several episodes of it and echocardiogram is been checked which is unrevealing for any valvular dysfunction she's been restarted on Eliquis she is currently in sinus rhythm and once again currently refusing all medications secondary to encephalopathy/delirium. The patient would likely benefit from outpatient cardiology consultation and further reevaluation in the future for long-term anticoagulation. 5. Thrombocytopenia: Likely secondary to sepsis syndrome and does appear to be improving with treatment the patient has been restarted on Eliquis DISPOSITION: The patient appears to be improving quite well this time should her mental status remains stable and continue doing well I could see or potentially being discharge within the next 24-48 hours VS, I&O, 24H, [facility] Vital Signs/I&O Vital Signs Date Time Temp Pulse Resp B/P Pulse Ox O2 Delivery O2 Flow Rate FiO2 07/15/16 09:41 16 07/14/16 20:00 99.0 89 150/75 93 Room Air 07/12/16 03:46 1.0 I&O- Last 24 Hours up to 6 AM 07/15/16 06:00 Intake Total 0 ml Output Total 0 ml Balance 0 ml Laboratory Data 24H LABS Laboratory Tests 2 07/15/16 07:40: Anion Gap 9, Blood Urea Nitrogen 11, Creatinine 0.55, Sodium Level 141, Potassium Level 3.0L, Chloride Level 106, Carbon Dioxide Level 26, Calcium Level 8.0L, Glomerular Filtration Rate > 60.0, Magnesium Level 1.7L CBC/BMP Laboratory Tests 07/15/16 07:40 Calcium Level 8.0 L, Red Blood Count 4.11, Mean Corpuscular Volume 87.7, Mean Corpuscular Hemoglobin 29.7, Mean Corpuscular Hemoglobin Concent 33.9, Red Cell Distribution Width 14.2 Microbiology Microbiology 07/09/16 Blood Culture - Final, Complete Escherichia Coli 07/09/16 Blood Culture - Final, Complete Escherichia Coli 07/09/16 Influenza Virus Type A Antigen - Final, Complete 07/09/16 Influenza Virus Type B Antigen - Final, Complete 07/09/16 Urine Culture - Final, Complete Escherichia Coli CORRINE SANABRIA MD Jul 15, 2016 12:52
[2016-07-15 14:00] VITALS: BP 141/74
[2016-07-15 19:28] LABS: ANION GAP 8 MEQ/L (8-16); BLOOD UREA NITROGEN 11 MG/DL (7-18); CALCIUM LEVEL 7.7 MG/DL (8.8-10.2); CARBON DIOXIDE LEVEL 27 MEQ/L (21-32); CHLORIDE LEVEL 104 MEQ/L (98-107); CREATININE FOR GFR 0.69 MG/DL (0.55-1.02); GLOMERULAR FILTRATION RATE > 60.0 (>39); GLUCOSE, FASTING 130 MG/DL (83-110); MAGNESIUM LEVEL 1.7 MG/DL (1.8-2.4); POTASSIUM SERUM 3.5 MEQ/L (3.5-5.1); SODIUM LEVEL 139 MEQ/L (136-145)
[2016-07-15 20:00] VITALS: BP 143/64
--- NOTE | 2016-07-15 21:45 | ECGEPIP ---
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
[2016-07-15] MEDS: ACETAMINOPHEN TAB 650MG DOSE (2X325MG) PO PRN (21:51)
[2016-07-16] MEDS: PERCOCET 5MG/325MG TAB PO PRN ×2 (02:00→10:40)
--- NOTE | 2016-07-16 02:31 | CR ---
DATE OF CONSULTATION: 07/15/2016 HISTORY OF PRESENT ILLNESS: This is a 80-year-old white woman whom I was asked to see because the patient developed paranoid symptoms, was agitated, and refusing all treatment including medications. She was admitted 3 days ago for treatment for a urinary tract infection and apparently was fine until the day before when the patient became agitated, paranoid stating that her conversations were being recorded and that she was being watched by a camera. She was refusing all care. There was a significant history of alcohol abuse. Apparently, according to the patient's significant other, the patient drinks about a tall glass of alcohol on a daily basis. The patient was, therefore, started on benzodiazepine. She was given some Ativan first and then is now on Serax withdrawal protocol. When I saw the patient today, she was pleasant and cooperative. There was absolutely no confusion. She could not remember the events of the day before. She did state at one point "I had a bad dream" when I mentioned to her some of the above noted symptoms. The patient admits that she used to drink mostly on weekends, but about a year ago she started to drink on a daily basis. She states that she also has been feeling depressed and she became tearful as she mentioned that she had two significant deaths this year. In May her nephew and then in June her son-in-law . She admits to feeling hopeless and helpless at times. She felt that the alcohol was helping her deal with things, but she herself recognizes that the alcohol was probably depressing her more. She says in general she sleeps good. She admits to feeling hopeless and helpless at times. I did not elicit posttraumatic stress disorder (PTSD), obsessive-compulsive disorder (OCD) symptoms in this patient. PAST PSYCHIATRIC HISTORY: She has never had any prior inpatient or outpatient psychiatric treatment. She has never made any suicidal attempts. She says only once before she was given an antidepressant she cannot recall the name of and she did not feel that it helped. FAMILY HISTORY: She is not aware of any psychiatric illness in the family. ABUSE HISTORY: She denies any history of any physical or sexual abuse in her past. MEDICAL HISTORY: The patient currently was being treated for a urinary tract infection. The patient has a history of hypothyroidism and osteoarthritis and irritable bowel syndrome. SUBSTANCE ABUSE HISTORY: This is pretty much as noted above. MENTAL STATUS EXAMINATION: The patient is alert and oriented times three. She is pleasant and cooperative, verbally spontaneous. She says her mood is depressed. Affect is full range and appropriate. She is not psychotic, suicidal, homicidal. Concentration is fair. Memory is intact. Insight and judgment is good. DIAGNOSES: 1. Status post alcohol withdrawal and rule out alcohol withdrawal delirium. 2. Other specified depressive disorder, rule out major depressive disorder. 3. Urinary tract infection status post sepsis. 4. History of hypothyroidism. 5. History of osteoarthritis. 6. History of irritable bowel syndrome. 7. Alcohol use disorder, severe. TREATMENT RECOMMENDATIONS: At this point, it is important to completely detoxify the patient from alcohol with Serax. I discussed with the patient that it is important for her not to return to drinking once she is discharged. The patient states that she does not plan to drink again and I did recommend to the patient that she look at doing some outpatient counseling to ensure a greater likelihood that she will not drink again. In addition, I recommend that you start the patient on Zoloft 50 mg daily because the patient is complaining of depression. I also recommended to the patient that she consider referral to a psychiatric clinic for followup for the medication and also to do some individual counseling. I explained to the patient that she seems to be undergoing grieving over two recent deaths and that I feel that she might benefit from doing counseling. Please reconsult if further problems arise.
[2016-07-16 06:00] VITALS: BP 164/85
[2016-07-16] MEDS: LEVOTHYROXINE 0.025 MG TAB (25 MCG) PO SCH (06:28)
[2016-07-16] MEDS: OXAZEPAM 10 MG CAP PO SCH ×2 (06:28→14:40)
[2016-07-16] MEDS: ACETAMINOPHEN TAB 650MG DOSE (2X325MG) PO PRN (06:32)
[2016-07-16] MEDS ORDERED: POTASSIUM CHLORIDE 10 MEQ SR TABLET PO ONE (06:45)
[2016-07-16 07:05] LABS: MEAN CORPUSCULAR HEMOGLOBIN 29.6 pg (27.0-33.0); MEAN CORPUSCULAR HGB CONC 33.2 g/dl (32.0-36.5); MEAN CORPUSCULAR VOLUME 89.1 fl (80.0-96.0); RED CELL DISTRIBUTION WIDTH 14.2 % (11.5-14.5); WHITE BLOOD COUNT 13.2 K/mm3 (4.0-10.0)
[2016-07-16] MEDS: MAG SULF 1GM/100ML (MAG RUN) 1 GM in APPROPRIATE DILUENT 1 EA IV SCH ×2 (07:36→09:06)
[2016-07-16 07:47] LABS: ALBUMIN 2.7 GM/DL (3.2-5.2); ANION GAP 9 MEQ/L (8-16); BLOOD UREA NITROGEN 10 MG/DL (7-18); CALCIUM LEVEL 7.9 MG/DL (8.8-10.2); CARBON DIOXIDE LEVEL 28 MEQ/L (21-32); CHLORIDE LEVEL 104 MEQ/L (98-107); CREATININE FOR GFR 0.73 MG/DL (0.55-1.02); GLOMERULAR FILTRATION RATE > 60.0 (>39); GLUCOSE, FASTING 102 MG/DL (83-110); POTASSIUM SERUM 3.5 MEQ/L (3.5-5.1); SODIUM LEVEL 141 MEQ/L (136-145)
[2016-07-16] MEDS: THIAMINE 100 MG TAB PO SCH (09:00)
[2016-07-16] MEDS ORDERED: SERTRALINE HCL 50 MG TAB PO SCH (09:00)
[2016-07-16] MEDS: cefTRIAXone SOD 1 GM in D5W MINI-BAG PLUS 50 ML IV SCH (09:00)
[2016-07-16] MEDS: MULTIVITAMINS/MINERALS THERAP 1 TAB PO SCH (09:06)
[2016-07-16] MEDS: FOLIC ACID 1 MG TAB PO SCH (09:07)
[2016-07-16] MEDS: DOCUSATE SODIUM 100 MG CAP PO SCH (09:07)
[2016-07-16] MEDS: APIXABAN 5 MG TAB (ELIQUIS) PO SCH (09:07)
[2016-07-16] MEDS ORDERED: VITMTA PO (09:31)
[2016-07-16] MEDS ORDERED: SERT50TA PO (09:31)
[2016-07-16] MEDS ORDERED: OXAZ10CA PO (09:31)
[2016-07-16] MEDS ORDERED: FOLI1TAB2 PO (09:31)
[2016-07-16] MEDS ORDERED: THIA100TA PO (09:31)
[2016-07-16] MEDS ORDERED: ELIQ5TAB PO (09:31)
[2016-07-16 14:00] VITALS: BP 137/65
--- NOTE | 2016-07-16 18:34 | DSES ---
DATE OF ADMISSION: 07/10/2016 DATE OF DISCHARGE: 07/16/2016 DISCHARGE DIAGNOSIS: Sepsis secondary to Escherichia (E) coli bacteremia, urinary source. SECONDARY DIAGNOSES: 1. Paroxysmal atrial fibrillation. 2. Metabolic encephalopathy. 3. Alcohol withdrawal. 4. Thrombocytopenia. CONSULTS: Dr. Haley, psychiatry. HOSPITAL COURSE: The patient is a 80-year-old female who initially presented on 07/09/2016 with abdominal pain and subjective fevers. She was found to have a urinary tract infection. She was admitted to progressive care unit (PCU). At that time she did have an elevated lactic acid. She was treated with intravenous (IV) fluids, IV antibiotics, and gradually her symptoms did improve. The patient did spontaneously go into atrial fibrillation with rapid ventricular response. She was started on Eliquis and treated for alcohol withdrawal and her symptoms did improve. Later on in her stay, the patient did have an echocardiogram, which revealed normal left ventricular (LV) size and systolic function, but grade II diastolic dysfunction, possibly some structural mitral valve disease. The patient was in moderate to severe pulmonary hypertension. The patient was continued on Eliquis. She had converted back to a normal sinus rhythm and remained there after the second bout for the duration of her stay. Her hospital stay was complicated by acute 24 hour period of delirium. She was in consult by Dr. Haley, psychiatry. The patient suddenly exhibited paranoid delusions, believing the conversations were being recorded, her family was being blackmailed, and she refused all care. She was treated with intramuscular (IM) Ativan and Serax for alcohol withdrawal and her symptoms did improved. Dr. Haley recommended starting the patient on Zoloft for depression given the recent of family members and follow up with psychiatry. Patient's mental status and metabolic encephalopathy did resolve and she went back to her baseline. SUBJECTIVE: At this point, the patient tells me she is feeling well. She denies any complaints and she feels like she is ready to go home. She denies chest pain, shortness of breath, fevers, chills, nausea, vomiting, or diarrhea. OBJECTIVE: VITAL SIGNS: Temperature 96.3, pulse 68, respiratory rate 16, blood pressure 164/85, oxygen saturation 90% on room air. GENERAL: She is a pleasant, elderly, female laying flat in bed. She is in no acute distress. HEENT: Cranial nerves II-XII are grossly intact. She has moist mucous membranes. No elevation of central venous pressure (CVP). CARDIOVASCULAR EXAMINATION: S1, S2 regular. RESPIRATORY EXAMINATION: Clear. ABDOMINAL EXAMINATION: Benign. EXTREMITIES: No clubbing, cyanosis or edema. LABORATORY STUDIES: WBC 13.2, hemoglobin 12.1, platelet count 203. Chemistry panel: Sodium 141, potassium 3.5, chloride 104, bicarbonate 28, BUN 10, creatinine 0.7, magnesium 2.0. During her stay, an rapid plasma reagin (RPR) was nonreactive. A thyroid stimulating hormone (TSH) was slightly elevated. She had two blood cultures positive for Escherichia (E) coli from 07/09/2016. A urine culture was positive from 07/09/2016. Her E. coli was pansensitive. IMAGING: The patient had a CT scan of her head during her episode of delirium, which revealed an old right parietal infarction, small vessel ischemic disease. She had a renal ultrasound that revealed mild bilateral hydronephrosis. ASSESSMENT AND PLAN: This is a 80-year-old female with Escherichia (E) coli bacteremia and severe sepsis secondary to urinary tract source. PROBLEMS: 1. Severe sepsis and Escherichia (E) coli bacteremia secondary to urinary source. Patient had mild bilateral hydronephrosis; however, no visible obstructing lesion. She is making urine on her own quite well. Her renal functions remain stable. Her sepsis symptoms have resolved. She is to complete a two-week course of antibiotics for gram-negative beth bacteremia. She does appear to be resolving at this time. She is afebrile. 2. Metabolic encephalopathy and acute delirium. Resolving. Most likely related to alcohol withdrawal and it did resolve with benzodiazepine therapy. There was likely also a component of sundowning. The patient was significantly improved after one good night of sleep. Dr. Haley's help was greatly appreciated. The patient was started on Zoloft and will follow up with psychiatry as an outpatient. She is being discharged with Serax for her alcohol withdrawal symptoms and advised to avoid alcohol at all costs and to consider outpatient rehabilitation. The patient is on folic acid, thiamine and multivitamin. 3. Paroxysmal atrial fibrillation. An echocardiogram is appreciated. The patient has been started on Eliquis. She does not require any rate-controlling regimen. I suspect this may be related to her alcohol withdrawal symptoms. She could potentially follow up with a commercial loan closer as an outpatient and have a Holter monitor. If she has no further episodes of atrial fibrillation, could consider discontinuing Eliquis in the future; however, since she did have two episodes while exhibiting symptoms of alcohol withdrawal in the hospital, erring on the side of caution starting her on anticoagulation, and also, given that she does have some mild valvular dysfunction seen on her echocardiogram. 4. Thrombocytopenia. Resolved. Secondary to her sepsis syndrome. DISPOSITION: The patient has been cleared by physical therapy. She is being discharged home to the care of her family. Family conference was held with both her typewriter tester and her son. She should follow up with her primary care provider (PCP) in seven days, follow up with psychiatry as soon as able. Her activity and diet are as prior to admission. She is to avoid alcohol. Consider cardiology referral and reevaluate the need for Eliquis and paroxysmal atrial fibrillation. Consider a urology referral for urinary tract infections. MEDICATIONS AT THE TIME OF DISCHARGE: - Eliquis 5 mg twice a day and prior authorization obtained - folic acid 1 mg daily - multivitamin one tablet daily - Serax 10 mg every 6 hours as needed for agitation, quantity 16 - sertraline 50 mg daily - thiamine 100 mg daily - vitamin D 1000 units daily - glucosamine chondroitin as per the patient - levothyroxine 25 mcg daily Greater than 30 minutes spent organizing disposition.
== END 2016-07-16 15:48 | disposition home or self-care (01) | DRG 871 ==
LOC: M ED 13:19 → UNDOADMOB 15:37 → M ED INP 15:37 → M PCU 16:41 → M ED INP 16:41 → M PCU 19:52 → OBSVTOIN 07-10 16:06 → M MS5PR 07-14 17:27
PROVIDERS: ADMIT Hospitalist; ATTEND Hospitalist
DX: A41.9 Sepsis, unspecified organism (principal); G93.41 Metabolic encephalopathy; N39.0 Urinary tract infection, site not specified; F10.232 Alcohol dependence with withdrawal with perceptual disturbance; E87.2 Acidosis; B96.20 Unspecified Escherichia coli [E. coli] as the cause of diseases classified elsewhere; I48.0 Paroxysmal atrial fibrillation; D69.6 Thrombocytopenia, unspecified; E03.9 Hypothyroidism, unspecified; M19.90 Unspecified osteoarthritis, unspecified site; K58.9 Irritable bowel syndrome, unspecified; Z87.891 Personal history of nicotine dependence; Z79.899 Other long term (current) drug therapy; Z79.01 Long term (current) use of anticoagulants

== ENCOUNTER → 2016-07-23 | Outpatient (CLI) | payer MEDICARE ==
[~2016-07-23] MED LIST changes: +ELIQ5TAB PO; +FOLI1TAB2 PO; +GLUC1CAP9 PO; +OXAZ10CA PO; +SERT50TA PO; +THIA100TA PO; +VITA100066 PO; +VITMTA PO
[2016-07-23 15:42] LABS: MICROSCOPIC INDICATED? NO (NO)
== END ==
LOC: M LAB 13:05
PROVIDERS: ATTEND Emergency Medicine
DX: N39.0 Urinary tract infection, site not specified (principal)

== ENCOUNTER → 2016-08-09 | Outpatient (CLI) | payer MEDICARE ==
[2016-08-09 09:53] LABS: BASO # 0.1 K/mm3 (0.0-0.2); BASO % 0.9 % (0.0-1.0); EOS # 0.2 K/mm3 (0.0-0.50); EOS % 3.6 % (0.0-3.0); LARGE UNSTAINED CELL # 0.3 K/mm3 (0.0-0.4); LARGE UNSTAINED CELL % 4.4 % (0.0-4.0); LYMPH # 1.8 K/mm3 (1.5-4.5); LYMPH % 29.1 % (24.0-44.0); MEAN CORPUSCULAR HGB CONC 32.6 g/dl (32.0-36.5); MONO # 0.7 K/mm3 (0.0-0.8); MONO % 10.8 % (0.0-5.0); NEUTROPHILS # 3.2 K/mm3 (1.8-7.7); NEUTROPHILS % 51.2 % (36.0-66.0); PLATELET COUNT, AUTOMATED 205 k/mm3 (150-450); RED CELL DISTRIBUTION WIDTH 14.4 % (11.5-14.5); WHITE BLOOD COUNT 6.2 K/mm3 (4.0-10.0)
[2016-08-09 10:33] LABS: ALBUMIN 3.6 GM/DL (3.2-5.2); ALKALINE PHOSPHATASE 48 U/L (45-117); ALT/SGPT 20 U/L (12-78); ANION GAP 7 MEQ/L (8-16); AST/SGOT 21 U/L (15-37); BILIRUBIN,TOTAL 0.6 MG/DL (0.2-1.0); BLOOD UREA NITROGEN 16 MG/DL (7-18); CALCIUM LEVEL 9.2 MG/DL (8.8-10.2); CARBON DIOXIDE LEVEL 30 MEQ/L (21-32); CHLORIDE LEVEL 103 MEQ/L (98-107); CHOLESTEROL LEVEL 214 MG/DL (<200); CREATININE FOR GFR 0.82 MG/DL (0.55-1.02); FREE T4 1.19 NG/DL (0.76-1.46); GLOMERULAR FILTRATION RATE > 60.0 (>39); GLUCOSE, FASTING 94 MG/DL (83-110); MAGNESIUM LEVEL 2.1 MG/DL (1.8-2.4); POTASSIUM SERUM 4.2 MEQ/L (3.5-5.1); SODIUM LEVEL 140 MEQ/L (136-145); TOTAL PROTEIN 7.6 GM/DL (6.4-8.2); TRIGLYCERIDES LEVEL 113 MG/DL (<150)
== END ==
LOC: M LAB 09:01
PROVIDERS: ATTEND Emergency Medicine
DX: I48.0 Paroxysmal atrial fibrillation (principal); I10 Essential (primary) hypertension

== ENCOUNTER 2016-12-28 23:47 | Emergency (ER) | payer MEDICARE ==
[~2016-12-28] VITALS: Ht 167.6 cm; Wt 90.0 kg
[~2016-12-28 23:47] MED LIST changes: -FOLI1TAB2 PO; +FOLI1TAB4 PO; -OXAZ10CA PO; +OXAZ10CA3 PO
[2016-12-29] MEDS ORDERED: METOCLOPRAMIDE INJ 10MG/2ML VIAL (J2765) IV ONE (00:45)
[2016-12-29] MEDS ORDERED: NS 1,000 ML IV ONE (00:45)
[2016-12-29] MEDS ORDERED: ONDANSETRON 4MG/2ML VIAL (J2405) IV ONE (00:45)
[2016-12-29] MEDS: MORPHINE 4 MG/ML 1ML SYRINGE IV PRN ×2 (01:00→01:37)
[2016-12-29 01:07] LABS: ADD MANUAL DIFFER YES; MEAN CORPUSCULAR HEMOGLOBIN 31.6 pg (27.0-33.0); MEAN CORPUSCULAR HGB CONC 35.1 g/dl (32.0-36.5); MEAN CORPUSCULAR VOLUME 90.1 fl (80.0-96.0); PLATELET COUNT, AUTOMATED 169 k/mm3 (150-450); RED CELL DISTRIBUTION WIDTH 13.4 % (11.5-14.5); WHITE BLOOD COUNT 9.4 K/mm3 (4.0-10.0)
[2016-12-29 01:27] LABS: ALBUMIN 3.5 GM/DL (3.2-5.2); ALBUMIN/GLOBULIN RATIO 0.95 (1.00-1.93); ALKALINE PHOSPHATASE 45 U/L (45-117); ALT/SGPT 27 U/L (12-78); ANION GAP 9 MEQ/L (8-16); AST/SGOT 22 U/L (15-37); BILIRUBIN,DIRECT 0.2 MG/DL (0.0-0.2); BILIRUBIN,TOTAL 0.8 MG/DL (0.2-1.0); BLOOD UREA NITROGEN 24 MG/DL (7-18); CALCIUM LEVEL 9.1 MG/DL (8.8-10.2); CARBON DIOXIDE LEVEL 25 MEQ/L (21-32); CHLORIDE LEVEL 105 MEQ/L (98-107); CREATININE FOR GFR 1.31 MG/DL (0.55-1.02); GLOMERULAR FILTRATION RATE 41.6 (>32); GLUCOSE, FASTING 109 MG/DL (83-110); POTASSIUM SERUM 3.4 MEQ/L (3.5-5.1); SODIUM LEVEL 139 MEQ/L (136-145); TOTAL PROTEIN 7.2 GM/DL (6.4-8.2)
[2016-12-29 01:36] LABS: BASOPHILS 1 % (0-4)
[2016-12-29] MEDS ORDERED: ISOVUE-370 76% 100ML VIAL (Q9967) As Ordered ONE (01:36)
[2016-12-29 02:36] VITALS: BP 129/56
--- NOTE | 2016-12-29 02:41 | REPUSA ---
CLINICAL HISTORY: Abdominal pain. TECHNIQUE: Multiple axial, sagittal and coronal CT images were obtained through the abdomen and pelvi s after administration of intravenous contrast material. COMMENTS: The liver is mildly enlarged with decreased attenuation without mass or defect. There is no intra or extrahepatic biliary ductal dilatation. The spleen is normal. The gallbladder is within normal limits . The pancreas is of normal contour and attenuation characteristics. There is no evidence of adrenal mass. Both kidneys demonstrate prompt and equal nephrograms. The kidneys are normal in size, shape and conf iguration. There is no evidence of renal or ureteral mass. Left renal nonobstructing stone measuring 1.2 cm. 5 mm obstructing calculus of the left and at L4/L5 level. Mild left hydroureteronephrosis. Le ft perinephric fat stranding. Uncomplicated clonic diverticulosis. No evidence for appendicitis. There is no bowel wall thickening. No evidence for small or large abel l obstruction. There is no evidence of abdominal ascites or lymphadenopathy. There is no evidence of intrinsic or extrinsic bladder mass. There is no pelvic ascites or lymphadeno marilee. Uncomplicated colonic diverticulosis. Images of the lung bases show no evidence of pleural or parenchymal mass. There are no pleural effusi ons. The bony structures are free of lytic or blastic lesions. Multilevel degenerative changes are seen in volving the thoracolumbar spine. Scattered calcifications are seen involving the aorta and major bran ches compatible with atherosclerosis. IMPRESSION: Left nephrolithiasis. Obstructing stone of the left ureter. Thank you for your kind referral of this patient.
[2016-12-29] MEDS ORDERED: KETOROLAC 30 MG/ML VIAL (J1885) IV ONE (03:00)
[2016-12-29] MEDS ORDERED: TAMSULOSIN 0.4 MG CAP PO ONE (03:00)
[2016-12-29] MEDS ORDERED: CIPR-249 PO ×2 (05:06→15:21)
[2016-12-29] MEDS ORDERED: FLOM5CAP PO ×2 (05:06→15:21)
[2016-12-29] MEDS ORDERED: PERC5TAB12 PO (05:06)
[2016-12-29] MEDS ORDERED: OXYCODONE/APAP 5MG/325MG(BULK FOR ED) 1 TABLET PO ONE (05:15)
[2016-12-29] MEDS ORDERED: PROB1TAB PO (15:21)
[2016-12-29] MEDS ORDERED: OXYC1TAB23 PO (15:21)
[2016-12-29] MEDS ORDERED: THIA100T6 PO (15:21)
[2016-12-29] MEDS ORDERED: ELIQ5TAB PO (15:21)
[2016-12-29] MEDS ORDERED: TURM500T PO (15:21)
[2016-12-29] MEDS ORDERED: VITMTA PO (15:21)
[2016-12-29] MEDS ORDERED: ACET50TAOT PO (15:21)
[2016-12-29] MEDS ORDERED: ALDA25TA PO (15:21)
[2016-12-29] MEDS ORDERED: FOLI1TAB4 PO (15:21)
--- NOTE | 2016-12-29 21:37 | ECGEPIP ---
Stationary ECG Study 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
== END 2016-12-29 05:40 | disposition home or self-care (01) ==
LOC: M ED 23:47 → EDBD 23:47 → M ED 12-29 05:40
DX: N20.1 Calculus of ureter (principal); R11.0 Nausea; Z88.0 Allergy status to penicillin; Z79.899 Other long term (current) drug therapy; Z79.01 Long term (current) use of anticoagulants

== ENCOUNTER 2016-12-29 12:53 | Inpatient (IN) | payer MEDICARE ==
[~2016-12-29] VITALS: Ht 167.6 cm; Wt 94.0 kg
[2016-12-29] VITALS (20 sets, daily range): BP systolic 57–130; BP diastolic 31–59
[~2016-12-29 12:53] MED LIST changes: +CIPR-249 PO; +FLOM5CAP PO; +PERC5TAB12 PO
[2016-12-29] MEDS ORDERED: ONDANSETRON 4MG/2ML VIAL (J2405) IV ONE (13:30)
[2016-12-29] MEDS ORDERED: NS 500 ML IV ONE (13:30)
[2016-12-29] MEDS ORDERED: CEFEPIME HCL 2 GM in D5W MINI-BAG PLUS 50 ML IV ONE (13:45)
[2016-12-29] MEDS ORDERED: KETOROLAC 30 MG/ML VIAL (J1885) IV ONE (13:45)
[2016-12-29 14:08] LABS: ADD MANUAL DIFFER YES; MEAN CORPUSCULAR HEMOGLOBIN 31.1 pg (27.0-33.0); MEAN CORPUSCULAR HGB CONC 33.1 g/dl (32.0-36.5); MEAN CORPUSCULAR VOLUME 93.8 fl (80.0-96.0); PLATELET COUNT, AUTOMATED 130 k/mm3 (150-450); RED CELL DISTRIBUTION WIDTH 13.9 % (11.5-14.5)
[2016-12-29 14:14] LABS: CALCIUM LEVEL 7.8 MG/DL (8.8-10.2); CREATININE FOR GFR 1.91 MG/DL (0.55-1.02); GLOMERULAR FILTRATION RATE 26.9 (>32); POTASSIUM SERUM 3.9 MEQ/L (3.5-5.1)
[2016-12-29] MEDS ORDERED: NS 2,730 ML in APPROPRIATE DILUENT 1 EA IV ONE (14:30)
[2016-12-29 14:53] LABS: ABG BASE EXCESS -6.3 (-2.0-2.0); ABG HCO3 16.7 MEQ/L (22.0-26.0); ABG PARTIAL PRESSURE CO2 26.5 mmHg (35.0-45.0); ABG PARTIAL PRESSURE O2 66.3 mmHg (75.0-100.0); ABG STANDARD HCO3 19.2 MEQ/L (22.0-26.0); ABG TOTAL CO2 17.5 MEQ/L (23.0-31.0); ABG pH (ARTERIAL) 7.418 UNITS (7.350-7.450)
[2016-12-29 14:59] LABS: BANDS 13 % (< 11); BASOPHILS 2 % (0-4); EOSINOPHILS 1 % (0-5)
[2016-12-29 15:11] LABS: INR 1.32
--- NOTE | 2016-12-29 15:11 | REP ---
Clinical: Sepsis . Comparison: 07/09/2016 . Findings: The mediastinum and cardiac silhouette are stable and within normal limits for portable technique. The lung aceves are clear without acute consolidation, effusion, or pneumothorax. Skeletal structures are intact. Impression: No acute cardiopulmonary process appreciated. Signed by Figueroa Porter MD 12/29/2016 03:04 P
[2016-12-29 15:17] LABS: BILIRUBIN,DIRECT 0.3 MG/DL (0.0-0.2); BILIRUBIN,TOTAL 0.7 MG/DL (0.2-1.0)
[2016-12-29] MEDS ORDERED: THIA100T6 PO (15:21)
[2016-12-29] MEDS ORDERED: ALDA25TA PO (15:21)
[2016-12-29] MEDS ORDERED: FLOM5CAP PO (15:21)
[2016-12-29] MEDS ORDERED: ACET50TAOT PO (15:21)
[2016-12-29] MEDS ORDERED: CIPR-249 PO (15:21)
[2016-12-29] MEDS ORDERED: TURM500T PO (15:21)
[2016-12-29] MEDS ORDERED: ELIQ5TAB PO (15:21)
[2016-12-29] MEDS ORDERED: NS 1,000 ML IV SCH ×2 (15:21→18:00)
[2016-12-29] MEDS ORDERED: FOLI1TAB4 PO (15:21)
[2016-12-29] MEDS ORDERED: VITMTA PO (15:21)
[2016-12-29] MEDS ORDERED: OXYC1TAB23 PO (15:21)
[2016-12-29] MEDS ORDERED: PROB1TAB PO (15:21)
[2016-12-29] MEDS ORDERED: MORPHINE 2 MG/ML 1ML SYRINGE IV PRN (15:30)
[2016-12-29] MEDS ORDERED: ONDANSETRON 4MG/2ML VIAL (J2405) IV PRN ×2 (15:30→22:45)
[2016-12-29] MEDS ORDERED: CEFEPIME HCL 1 GM in D5W MINI-BAG PLUS 50 ML IV SCH (15:45)
--- NOTE | 2016-12-29 16:13 | HPEPDOC ---
General Date of Admission 12/29/16 Primary Care Physician: BOOKER FARNSWORTH MD Attending Physician: ALO DUNCAN MD Chief Complaint The patient is a 81-year-old female admitted with a reason for visit of Gen. Med Comp. History of Present Illness 81-year-old female with past medical history of morbid obesity, depression, hypothyroidism, stage II DDCHF with preserved EF, and recent diagnosis of atrial fibrillation on Eliquis when she was admitted in June 2016 for Sepsis 2/ 2 UTI. At this time, the patient presented to the ER after her blood culture was noted to be positive for gram negative rods. Initially, the patient was seen late last night/early this morning for left-sided abdominal pain. A CT scan of the abdomen revealed left-sided nephrolithiasis, with an obstructing stone of the left ureter. The patient was also noted to have a mild acute kidney injury. However, given the fact that the patient did not have any fevers , or elevated white blood cell count, and that her pain was controlled, the patient was sent home from the ER. However, the patient was brought back to the hospital after her blood culture was noted to be positive. At this time, the patient states that the left sided abdominal/flank pain has gotten worse. In addition, the patient states that she has not been able to hold any food down as she has been nauseous and vomiting. She also notes subjective fevers at home. She denies any acute complaints of chest pain, palpitations, shortness of breath, or any diarrhea. In the ER, the patient was noted to have worsening acute kidney injury, elevated white blood cell count, and an elevated lactic acid level as well as a fever. The patient has been started on IV fluid hydration and empiric antibiotic therapy. In addition, a consult has been placed to urology for further intervention of the aforementioned obstructing stone of the left ureter. Home Medications Scheduled (Glucosamine & Chondroitin 500-400 mg) 1 Cap Cap, 1 CAP PO DAILY, (Reported) (Probiotic) 1 Tab Tab, 1 TAB PO DAILY, (Reported) Acetaminophen (Acetaminophen) 500 Mg Tab, 500 MG PO Q8H, (Reported) Apixaban Base (Eliquis) 5 Mg Tab, 5 MG PO BID, (Reported) Cholecalciferol (Vitamin D) 1,000 Unit Tab, 1,000 UNIT PO DAILY, (Reported) Ciprofloxacin HCl (Cipro) 500 Mg Tab, 500 MG PO BID, (Reported) NEW MED FROM 12/28, NOT STARTED Curcuma Longa (Turmeric) Extra (Turmeric) 500 Mg Tab, 500 MG PO DAILY, (Reported ) Folic Acid (Folic Acid) 1 Mg Tab, 1 MG PO DAILY, (Reported) Hctz/Spironolactone (Spironolactone/Hydrochlor 25-25 mg) 1 Ea Tab, 0.5 TAB PO DAILY, (Reported) Levothyroxine Sodium (Synthroid) 25 Mcg Tab, 25 MCG PO DAILY, (Reported) Multivitamins *[facility] STOCKED* (Thera M Plus *[facility] STOCKED*) 1 Tab Tab, 1 TAB PO DAILY, (Reported) Tamsulosin Hydrochloride (Flomax) 0.4 Mg Cap, 0.4 MG PO DAILY, (Reported) NEW MED FROM 12/28, NOT STARTED Thiamine HCl (Thiamine HCl) 100 Mg Tab, 100 MG PO DAILY, (Reported) Scheduled PRN Oxycodone/Acetaminophen (Oxycodone/Acetaminophen 5-325 mg) 1 Tab Tab, 1 TAB PO Q6H PRN for PAIN, (Reported) Allergies Coded Allergies: Penicillins (Verified Allergy, Intermediate, rash, 07/10/16) Past Medical History Medical History As noted in HPI. Surgical History History of appendectomy, right knee surgery Family History Significant Family History: No pertinent family hx Social History * Smoker: former Smoker Alcohol: occationally Drugs: denies Review of Symptoms Other systems 10 point review of systems as noted in the HPI. Physical Examination General Exam: Positive: Alert, Cooperative, Mild Distress (2/2 Flank Pain) ENT Exam: Positive: Atraumatic, Negative: Mucous membr. moist/pink (dry oral mucosa) Neck Exam: Negative: JVD Chest Exam: Positive: Clear to auscultation, Normal air movement Heart Exam: Positive: Rate Normal, Normal S1, Normal S2 Telemetry: Positive: Sinus Abdomen Exam: Positive: Soft, Tenderness (Mild tenderness to palpation in the LUQ/Left Flank area ) Extremity Exam: Negative: Tenderness, Swelling Psych Exam: Positive: Oriented x 3 Vital Signs Vital Signs Date Time Temp Pulse Resp B/P (MAP) Pulse Ox O2 Delivery O2 Flow Rate FiO2 12/29/16 15:12 112/51 (71) 12/29/16 15:08 95 12/29/16 14:53 93 12/29/16 14:44 24 12/29/16 14:23 99.5 12/29/16 12:54 Room Air Laboratory Data Labs 24H Laboratory Tests 2 12/29/16 13:39: Neutrophils 63, Band Neutrophils 13H, Lymphocytes (Manual) 6L, Monocytes (Manual ) 4, Eosinophils (Manual) 1, Basophils (Manual) 2, Metamyelocytes 8H, Myelocytes 3H, Platelet Estimate NORMAL, Anion Gap 15, Glomerular Filtration Rate 26.9L, Lactic Acid Level 5.6*H, Blood Urea Nitrogen 28H, Creatinine 1.91H, Sodium Level 137, Potassium Level 3.9, Chloride Level 101, Carbon Dioxide Level 21, Calcium Level 7.8L 12/29/16 14:37: Prothrombin Time 16.7H, Prothromb Time International Ratio 1.32, Activated Partial Thromboplast Time 39.1H, Aspartate Amino Transf (AST/SGOT) 27, Alanine Aminotransferase (ALT/SGPT) 23, Alkaline Phosphatase 48, Total Bilirubin 0.7, Direct Bilirubin 0.3H, Total Creatine Kinase 96, Creatine Kinase MB 1.2, Creatine Kinase MB Relative Index 1.25, Troponin I 0.02, C-Reactive Protein, Quantitative 11.40H, Total Protein 6.0L, Albumin 3.0L, Albumin/Globulin Ratio 1.00, Amylase Level 30 12/29/16 14:38: Blood Gas Bicarbonate Standard 19.2L, Arterial Blood pH 7.418, Arterial Blood Partial Pressure CO2 26.5L, Arterial Blood Partial Pressure O2 66.3L, Arterial Blood Total CO2 17.5L, Arterial Blood HCO3 16.7L, Arterial Blood Base Excess - 6.3L, Arterial Blood Oxygen Saturation 93.6L CBC/BMP Laboratory Tests 12/29/16 13:39 Red Blood Count 3.78 L, Mean Corpuscular Volume 93.8, Mean Corpuscular Hemoglobin 31.1, Mean Corpuscular Hemoglobin Concent 33.1, Red Cell Distribution Width 13.9, Calcium Level 7.8 L Plan / VTE VTE Prophylaxis Ordered?: Yes (SCDs/TEDs) Plan / Urinary Catheter Reason for insertion/continuin: Critical Pt monitoring Plan Plan Sepsis 2/2 Left-Sided Hydrorueteronephrosis CT of the Abd/Pel notable for obstructing stone in left ureter Preliminary Blood Cx + for Gram Negative Rods x 2--Repeat Blood Cultures ordered , Urine Culture pending Patient has been empirically started on Cefepime (Last case of UTI bacteremia notable for rapp-sensitive E. Coli in June 2016) IVF Hydration ordered The patient is an intermediate risk for this urgent procedure. I did also discuss this with the patient's outpatient Cardiology team/physician, Dr. Schroeder who agrees with the above. The patient has been medically optimized at this time. Urology on board--I have spoken to Dr. Anthony about the case, and he plans to take the patient for urologic intervention this afternoon/evening Keep NPO We will continue to monitor the patient's condition Lactic Acidosis 2/2 Above IVF Hydration ordered Empiric Abx coverage Repeat LA levels Gram Negative Bacteremia 2/2 Above On empiric abx coverage Repeat Cultures ordered Leukocytosis 2/2 above WBC noted to be 15K Cont mgmt as noted above Acute Kidney Injury 2/2 Sepsis, Intravascular Volume Depletion, Obstructing Left Sided Ureter Stone IVF Hydration/Resuscitation ordered Hold Nephrotoxins Renally dose meds Urology to intervene this afternoon/evening Patient making Urine in the ER Monitor I/O's We will monitor BMP History of Stage II DD CHF Patient appears volume depleted We will order IVF hydration with close monitoring of the patient's volume/ respiratory status Hx of Atrial Fibrillation on Eliquis EKG noted to be in NSR in the ER Rate controlled Eliquis has been held, patient states that the last time she took her Eliquis this morning, she vomited it out right away We will cont to hold AC for now, increased risk of CVA, blood clotting discussed with the patient, and she has verbalized understanding Hypothyroidism Continue levothyroxine DVT prophylaxis SCDs/TEDs Prognosis: Guarded CODE STATUS-I did discuss the patient's CODE STATUS extensively with her at the bedside. At this time, the patient states that she would like to be a DNR/DNI. She verbalized understanding of the implications of her decision. A MOLST form has been signed, dated, and placed in the chart. The patient will be admitted under the service of Dr. Duncan, who will begin to follow the patient on 12/30/16 at 7 AM. MAHESH PAZ MD Dec 29, 2016 16:13
[2016-12-29] MEDS ORDERED: LIDOCAINE 1% MDV 20ML VIAL As Ordered ONE (17:41)
[2016-12-29] MEDS ORDERED: NOREPINEPHRINE BITARTRATE 16 MG in D5W 500 ML IV SCH (18:00)
[2016-12-29] MEDS: NOREPINEPHRINE BITARTRATE 8 MG in D5W 500 ML IV SCH (18:10)
[2016-12-29] MEDS ORDERED: SODIUM CHLORIDE 0.9% INJ 10 ML SYR IV PRN ×2 (18:15→18:30)
[2016-12-29] MEDS ORDERED: LIDOCAINE 1% MDV 20ML VIAL SC ONE ×2 (18:15→18:30)
--- NOTE | 2016-12-29 18:56 | REP ---
Portable chest x-ray: Single view: History: Central line placement. Comparison study: 12/29/2016. Findings: EKG monitoring electrodes are seen. A left subclavian line is seen with its tip in the expected location of the superior vena cava. There is no visible pneumothorax. Heart is mildly prominent unchanged. Pulmonary vasculature is not increased. Impression: Left subclavian line with its tip in the expected location of the superior vena cava. No complication seen. Signed by Prince Youngblood MD 12/29/2016 07:20 P
[2016-12-29] MEDS ORDERED: MIDAZOLAM INJ 2 MG/2 ML VIAL (J2250) As Ordered ONE (20:32)
[2016-12-29] MEDS ORDERED: KETAMINE HCL 200 MG/20 ML VIAL As Ordered ONE (20:32)
[2016-12-29] MEDS ORDERED: CONRAY-60 60% 50ML VIAL (Q9961) As Ordered ONE (20:38)
[2016-12-29] MEDS ORDERED: LIDOCAINE 2% 5ML JELLY UROJET As Ordered ONE (20:39)
[2016-12-29] MEDS ORDERED: CALCIUM CHLORIDE 10% 1 GM/10 ML SYR As Ordered ONE (21:03)
[2016-12-29] MEDS ORDERED: PROPOFOL 200 MG/20 ML VIAL As Ordered ONE (21:03)
--- NOTE | 2016-12-29 21:41 | ECGEPIP ---
Stationary ECG Study [facility] - ED Test Date: 2016-12-29 Pat Name: LIA BASILIO Department: Room: - Gender: F Email Deployment Specialist: JT : 1935 Requested By: Peña Armando Order Number: [id number] Reading MD: Christine Harrell Measurements Intervals [place] Rate: 98 P: 29 CA: 197 QRS: 29 QRSD: 91 T: 22 QT: 360 QTc: 460 Interpretive Statements SINUS RHYTHM MODERATE ST DEPRESSION INCREASED RATE 1:00 Electronically Signed On 12-29-2016 21:40:55 EDT by Christine Harrell
[2016-12-29] MEDS ORDERED: SODIUM CHLORIDE 0.9% INJ 10 ML SYR IV SCH (22:00)
[2016-12-29] MEDS: SODIUM CHLORIDE 0.9% INJ 10 ML SYR IV SCH (22:00)
[2016-12-29] MEDS: ACETAMINOPHEN TAB 650MG DOSE (2X325MG) PO PRN (22:21)
[2016-12-29] MEDS ORDERED: MORPHINE 4 MG/ML 1ML SYRINGE IV PRN (22:45)
[2016-12-30] VITALS (29 sets, daily range): BP systolic 81–124; BP diastolic 37–68
[2016-12-30] MEDS: PANTOPRAZOLE 40MG INJ (PROTONIX) (C9113) IV SCH ×2 (00:15→22:27)
[2016-12-30] MEDS: NOREPINEPHRINE BITARTRATE 8 MG in D5W 500 ML IV SCH ×2 (01:39→19:44)
[2016-12-30] MEDS: PERCOCET 5MG/325MG TAB PO PRN ×2 (02:11→16:04)
[2016-12-30] MEDS: LEVOTHYROXINE 25MCG TABLET (0.025MG) PO SCH (05:49)
[2016-12-30] MEDS: NS 1,000 ML IV SCH ×2 (05:49→08:45)
[2016-12-30] MEDS: SODIUM CHLORIDE 0.9% INJ 10 ML SYR IV SCH ×3 (05:49→22:27)
[2016-12-30 06:13] LABS: MEAN CORPUSCULAR HEMOGLOBIN 31.1 pg (27.0-33.0); MEAN CORPUSCULAR HGB CONC 33.5 g/dl (32.0-36.5); MEAN CORPUSCULAR VOLUME 92.9 fl (80.0-96.0); RED CELL DISTRIBUTION WIDTH 14.1 % (11.5-14.5); WHITE BLOOD COUNT 19.3 K/mm3 (4.0-10.0)
[2016-12-30 06:35] LABS: ALBUMIN 2.5 GM/DL (3.2-5.2); ALBUMIN/GLOBULIN RATIO 0.86 (1.00-1.93); BILIRUBIN,TOTAL 0.5 MG/DL (0.2-1.0); CALCIUM LEVEL 7.8 MG/DL (8.8-10.2); CREATININE FOR GFR 1.34 MG/DL (0.55-1.02); GLOMERULAR FILTRATION RATE 40.5 (>32); MAGNESIUM LEVEL 1.5 MG/DL (1.8-2.4); POTASSIUM SERUM 3.7 MEQ/L (3.5-5.1); TOTAL PROTEIN 5.4 GM/DL (6.4-8.2)
--- NOTE | 2016-12-30 07:22 | RO ---
DATE OF PROCEDURE: 12/29/2016 PREPROCEDURE DIAGNOSIS: Hypotension. POSTOPERATIVE DIAGNOSIS: same. PROCEDURE: Insertion of radial arterial line. SURGEON: Dr. Oscar Myles MRI CT TECH: ANESTHESIA: The patient's right wrist was prepped and draped in the usual sterile fashion. She had a good pulse which was palpated. Lidocaine was infiltrated into the subcutaneous tissue. The artery was found on the first pass and a wire was passed without difficulty. The arterial line was then placed by Seldinger technique. It was connected to the transducer which showed an arterial wave form. The catheter was sutured to the wrist with two #3-0 silk sutures. The patient tolerated the procedure well. JACINDA
--- NOTE | 2016-12-30 07:46 | RO ---
DATE OF PROCEDURE: 12/29/2016 PREPROCEDURE DIAGNOSIS: Hypotension. Urosepsis. POSTPROCEDURE DIAGNOSIS: Hypotension. Urosepsis. PROCEDURE: Insertion of left subclavian central line. SURGEON: Dr. Oscar Myles OPAL MINER: ANESTHESIA: The patient's left infraclavicular fossa was prepped and draped in the usual sterile fashion. It was then infiltrated with 1% Xylocaine. The vein was found on the first pass underneath the clavicle. A wire was passed with production of PVCs. The tract was dilated and a triple lumen catheter was placed by Seldinger technique. The ports were aspirated and flushed without difficulty and the catheter was secured to the chest wall with two #3-0 silk sutures. The patient tolerated the procedure well and a chest x-ray is pending.
--- NOTE | 2016-12-30 08:04 | REP ---
RETROGRADE URETEROGRAM: Single view. HISTORY: Left kidney stones. 15 seconds of fluoroscopy time is reported. FINDINGS: A single last image hold fluoroscopic spot radiographs of the left abdomen documents double pigtail ureteral stent placement. Signed by Prince Youngblood MD 12/30/2016 08:24 A
--- NOTE | 2016-12-30 08:47 | RO ---
DATE OF PROCEDURE: 12/29/2016 PREOPERATIVE DIAGNOSES: Left hydronephrosis plus left ureteral stone. POSTOPERATIVE DIAGNOSIS: Left hydronephrosis plus left ureteral stone. SURGERY PERFORMED: Cystoscopy plus left retrograde pyelogram plus left double J stent placement, #6-Mongolian Olustee Cook. SURGEON: Paul Anthony MD VISUAL SPECIALIST: None. ANESTHESIA: Intravenous (IV) sedation, monitored anesthesia care (MAC). COMPLICATIONS: None. ESTIMATED BLOOD LOSS (EBL): N/A. HISTORY OF PRESENT ILLNESS: An 81-year-old female patient, who came to the emergency department (ED) due to blood culture positive and hypertension and tachycardia in state of urosepsis. She has a CT that shows left hydronephrosis with stranding and a stone in the proximal ureter. For this reason, the patient has been admitted by hospitalist service to surgical intensive care unit (SICU). We have been consulted for an emergent cystoscopy plus left double J stent placement. The patient is on pressors and with IV antibiotics. She has a central line, and she is being stabilized with hydration and pressors. For this reason, we have actually consented her as an emergency for a cystoscopy plus left retrograde pyelogram plus left double J stent placement. PROCEDURE DESCRIPTION: In a patient under MAC anesthesia, in supine modified low lithotomy position, after prepping and draping the area of concern, which included the entire genitalia and abdomen, we started by introducing a rigid cystoscope #21-Mongolian in diameter with 30-degree lens under videoendoscopic guidance. The urethra and bladder neck were totally normal. The bladder had no tumors, no stones, no foreign objects. Both ureteral orifices were seen. We passed a #5-Mongolian Pollack catheter through the left ureteral orifice and did a retrograde pyelogram. We could see a stone in the proximal ureter. We then proceeded to actually pass a guidewire up to the kidney. We then took the Pollack catheter out and passed a #6-Mongolian [place] stent up to the kidney. We took the guidewire out. We could see the curl in the kidney and a curl in the bladder. PLAN: The patient will actually be passing to recovery and then to SICU and will be managed by the hospitalist service due to urosepsis and due to left hydronephrosis plus a proximal ureteral stone obstructing the left kidney. The patient has been placed after this a Singer catheter #18-Mongolian to drain the bladder. There were no complications during surgery. We will follow the patient.
[2016-12-30] MEDS: TAMSULOSIN 0.4 MG CAP PO SCH (08:58)
[2016-12-30] MEDS: MULTIVITAMINS/MINERALS THERAP 1 TAB PO SCH (08:58)
[2016-12-30] MEDS: MAG SULF 1GM/100ML (MAG RUN) 1 GM in APPROPRIATE DILUENT 1 EA IV SCH ×2 (10:42→12:16)
--- NOTE | 2016-12-30 13:11 | IPNPDOC ---
Subjective Date Seen The patient was seen on 12/30/16. Subjective Chief Complaint/HPI The patient is a 81-year-old female admitted with a reason for visit of Sepsis. Events since last encounter feeling much better this morning . Went ot OR last night had cystoscopy and ureteral stent placement. , still requiring levophed to maintain bp. cvp at 13 this am. on ivf, abdominal pain better . still continues to have back pain , no nausea or vomiting or diarrhea . no chest pain or sob . no cough or phlegm Objective Physical Examination General Exam: Positive: Alert, Cooperative, Mild Distress (2/2 Flank Pain) ENT Exam: Positive: Atraumatic, Negative: Mucous membr. moist/pink (dry oral mucosa) Neck Exam: Negative: JVD Chest Exam: Positive: Clear to auscultation, Normal air movement Heart Exam: Positive: Rate Normal, Normal S1, Normal S2, Negative: Gallops, Murmurs, Rubs, Other Telemetry: Positive: No significant arrhythmia, Sinus Abdomen Exam: Positive: BS Hypoactive, Soft, Tenderness (Mild tenderness to palpation in the LUQ/Left Flank area ) Extremity Exam: Negative: Clubbing, Cyanosis, Edema, Normal pulses, Tenderness , Swelling, Other Skin Exam: Positive: Nl turgor and temperature, Negative: Rash, Breakdown Psych Exam: Positive: Oriented x 3 Assessment /Plan Problems (1) Septic shock Status: Acute Problem Text: due to obstructive pyelonephritis. on levophed . will try to wean if tolerated. will have to be careful with more fluids as cvp is 13 and patient has history of chf. (2) Obstructive pyelonephritis Status: Acute Problem Text: due to left ureteral stone. s/p cystoscopy and stent placement on 12/29/16 (3) Gram-negative bacteremia Status: Acute Problem Text: on cefepime will continue (4) Ureterolithiasis Status: Acute Problem Text: in the left ureter . there was 5 mm stone (5) ECTOR (acute kidney injury) Status: Acute Problem Text: due to septic shock , hypotension and obstructive uropathy. improving. (6) Diastolic CHF Status: Chronic Problem Text: no signs of exacerbation at present . (7) Morbid obesity Status: Chronic (8) Hypothyroid Status: Chronic (9) Atrial fibrillation Status: Resolved Problem Text: had a fib in june now in sinus rhythm on eliquis . will hold today Plan/VTE VTE Prophylaxis Ordered?: Yes (SCDs/TEDs) Plan/Urinary Catheter Reason for insertion/continuin: Critical Pt monitoring VS, I&O, 24H, Fishbone Vital Signs/I&O Vital Signs Date Time Temp Pulse Resp B/P (MAP) Pulse Ox O2 Delivery O2 Flow Rate FiO2 12/30/16 11:00 90 20 81/43 (56) 98 Nasal Cannula 2.0 110/44 (66) 12/30/16 08:00 99.5 I&O- Last 24 Hours up to 6 AM 12/30/16 06:00 Intake Total 5382 ml Output Total 1335 ml Balance 4047 ml Laboratory Data 24H LABS Laboratory Tests 2 12/29/16 13:39: Neutrophils 63, Band Neutrophils 13H, Lymphocytes (Manual) 6L, Monocytes (Manual ) 4, Eosinophils (Manual) 1, Basophils (Manual) 2, Metamyelocytes 8H, Myelocytes 3H, Platelet Estimate NORMAL, Anion Gap 15, Glomerular Filtration Rate 26.9L, Lactic Acid Level 5.6*H, Blood Urea Nitrogen 28H, Creatinine 1.91H, Sodium Level 137, Potassium Level 3.9, Chloride Level 101, Carbon Dioxide Level 21, Calcium Level 7.8L 12/29/16 14:37: Prothrombin Time 16.7H, Prothromb Time International Ratio 1.32, Activated Partial Thromboplast Time 39.1H, Aspartate Amino Transf (AST/SGOT) 27, Alanine Aminotransferase (ALT/SGPT) 23, Alkaline Phosphatase 48, Total Bilirubin 0.7, Direct Bilirubin 0.3H, Total Creatine Kinase 96, Creatine Kinase MB 1.2, Creatine Kinase MB Relative Index 1.25, Troponin I 0.02, C-Reactive Protein, Quantitative 11.40H, Total Protein 6.0L, Albumin 3.0L, Albumin/Globulin Ratio 1.00, Amylase Level 30 12/29/16 14:38: Blood Gas Bicarbonate Standard 19.2L, Arterial Blood pH 7.418, Arterial Blood Partial Pressure CO2 26.5L, Arterial Blood Partial Pressure O2 66.3L, Arterial Blood Total CO2 17.5L, Arterial Blood HCO3 16.7L, Arterial Blood Base Excess - 6.3L, Arterial Blood Oxygen Saturation 93.6L 12/29/16 18:03: Lactic Acid Level 3.2*H 12/30/16 05:56: Anion Gap 12, Glomerular Filtration Rate 40.5, Lactic Acid Followup at 4 Hours 2.3*H, Blood Urea Nitrogen 28H, Creatinine 1.34H, Sodium Level 142, Potassium Level 3.7, Chloride Level 111H, Carbon Dioxide Level 19L, Calcium Level 7.8L, Aspartate Amino Transf (AST/SGOT) 29, Alanine Aminotransferase (ALT/SGPT) 24, Alkaline Phosphatase 42L, Total Bilirubin 0.5, Total Protein 5.4L, Albumin 2.5L , Magnesium Level 1.5L, Albumin/Globulin Ratio 0.86L CBC/BMP Laboratory Tests 12/29/16 13:39 Red Blood Count 3.78 L, Mean Corpuscular Volume 93.8, Mean Corpuscular Hemoglobin 31.1, Mean Corpuscular Hemoglobin Concent 33.1, Red Cell Distribution Width 13.9, Calcium Level 7.8 L 12/30/16 05:56 Red Blood Count 3.65 L, Mean Corpuscular Volume 92.9, Mean Corpuscular Hemoglobin 31.1, Mean Corpuscular Hemoglobin Concent 33.5, Red Cell Distribution Width 14.1, Calcium Level 7.8 L, Aspartate Amino Transf (AST/SGOT) 29, Alanine Aminotransferase (ALT/SGPT) 24, Alkaline Phosphatase 42 L, Total Bilirubin 0.5, Total Protein 5.4 L, Albumin 2.5 L Microbiology Microbiology 12/30/16 Blood Culture, Received Pending 12/30/16 Blood Culture, Received Pending ALO MCMAHON MD Dec 30, 2016 13:11
[2016-12-30] MEDS ORDERED: CEFEPIME HCL 1 GM in D5W MINI-BAG PLUS 50 ML IV SCH ×4 (14:00)
[2016-12-30] MEDS: CEFEPIME HCL 2 GM in D5W MINI-BAG PLUS 50 ML IV SCH (15:09)
[2016-12-30] MEDS: ACETAMINOPHEN TAB 650MG DOSE (2X325MG) PO PRN ×2 (17:22→19:43)
[2016-12-30] MEDS ORDERED: NS 1,000 ML IV ONE (20:15)
[2016-12-31] VITALS (24 sets, daily range): BP systolic 90–135; BP diastolic 40–80
[2016-12-31] MEDS: NS 1,000 ML IV SCH (00:10)
[2016-12-31] MEDS: PERCOCET 5MG/325MG TAB PO PRN ×3 (01:14→14:17)
[2016-12-31] MEDS: NOREPINEPHRINE BITARTRATE 8 MG in D5W 500 ML IV SCH (02:34)
[2016-12-31 04:54] LABS: MEAN CORPUSCULAR HEMOGLOBIN 30.7 pg (27.0-33.0); MEAN CORPUSCULAR HGB CONC 33.3 g/dl (32.0-36.5); MEAN CORPUSCULAR VOLUME 92.3 fl (80.0-96.0); RED CELL DISTRIBUTION WIDTH 14.1 % (11.5-14.5); WHITE BLOOD COUNT 20.2 K/mm3 (4.0-10.0)
[2016-12-31 05:19] LABS: ALBUMIN 1.8 GM/DL (3.2-5.2); ALBUMIN/GLOBULIN RATIO 0.69 (1.00-1.93); ALKALINE PHOSPHATASE 61 U/L (45-117); ALT/SGPT 21 U/L (12-78); ANION GAP 10 MEQ/L (8-16); AST/SGOT 28 U/L (15-37); BILIRUBIN,TOTAL 0.5 MG/DL (0.2-1.0); BLOOD UREA NITROGEN 20 MG/DL (7-18); CALCIUM LEVEL 6.7 MG/DL (8.8-10.2); CARBON DIOXIDE LEVEL 19 MEQ/L (21-32); CHLORIDE LEVEL 115 MEQ/L (98-107); CREATININE FOR GFR 0.95 MG/DL (0.55-1.02); GLOMERULAR FILTRATION RATE > 60.0 (>32); GLUCOSE, FASTING 118 MG/DL (83-110); MAGNESIUM LEVEL 1.8 MG/DL (1.8-2.4); POTASSIUM SERUM 3.1 MEQ/L (3.5-5.1); SODIUM LEVEL 144 MEQ/L (136-145); TOTAL PROTEIN 4.4 GM/DL (6.4-8.2)
[2016-12-31] MEDS: SODIUM CHLORIDE 0.9% INJ 10 ML SYR IV SCH ×3 (06:00→21:23)
[2016-12-31] MEDS: LEVOTHYROXINE 25MCG TABLET (0.025MG) PO SCH (06:15)
[2016-12-31] MEDS ORDERED: POTASSIUM CHLORIDE 10 MEQ SR TABLET PO ONE (07:15)
[2016-12-31] MEDS: MULTIVITAMINS/MINERALS THERAP 1 TAB PO SCH (08:38)
[2016-12-31] MEDS: TAMSULOSIN 0.4 MG CAP PO SCH (08:38)
--- NOTE | 2016-12-31 12:39 | IPNPDOC ---
Subjective Date Seen The patient was seen on 12/31/16. Subjective Chief Complaint/HPI The patient is a 81-year-old female admitted with a reason for visit of Sepsis. Events since last encounter Had episode of hypotension last night needed increased dose of norepinephrine and 1 liter of fluid. This am patient requiring nasal oxygen. bp better , has abdominal soreness better than before. no fever or chills, no chest pain or cough ,has some shoulder pain Objective Physical Examination General Exam: Positive: Alert, Cooperative, Mild Distress (2/2 Flank Pain) ENT Exam: Positive: Atraumatic, Negative: Mucous membr. moist/pink (dry oral mucosa) Neck Exam: Negative: JVD Chest Exam: Positive: Clear to auscultation, Normal air movement, Rales Heart Exam: Positive: Rate Normal, Normal S1, Normal S2, Negative: Gallops, Murmurs, Rubs, Other Telemetry: Positive: No significant arrhythmia, Sinus Abdomen Exam: Positive: BS Hypoactive, Soft, Tenderness (Mild tenderness to palpation in the LUQ/Left Flank area ) Extremity Exam: Negative: Clubbing, Cyanosis, Edema, Normal pulses, Tenderness , Swelling, Other Skin Exam: Positive: Nl turgor and temperature, Negative: Rash, Breakdown Psych Exam: Positive: Oriented x 3 Assessment /Plan Problems (1) Septic shock Status: Acute Problem Text: due to obstructive pyelonephritis. on levophed . will try to wean if tolerated. will have to be careful with more fluids as cvp is 13 and patient has history of chf. (2) Obstructive pyelonephritis Status: Acute Problem Text: due to left ureteral stone. s/p cystoscopy and stent placement on 12/29/16 (3) Gram-negative bacteremia Status: Acute Problem Text: on cefepime will continue (4) Ureterolithiasis Status: Acute Problem Text: in the left ureter . there was 5 mm stone (5) ECTOR (acute kidney injury) Status: Acute Problem Text: due to septic shock , hypotension and obstructive uropathy. improving. (6) Diastolic CHF Status: Chronic Problem Text: no signs of exacerbation at present . (7) Morbid obesity Status: Chronic (8) Hypothyroid Status: Chronic (9) Atrial fibrillation Status: Resolved Problem Text: had a fib in june now in sinus rhythm on eliquis . will hold today Plan/VTE VTE Prophylaxis Ordered?: Yes (SCDs/TEDs) Plan/Urinary Catheter Reason for insertion/continuin: Critical Pt monitoring VS, I&O, 24H, Fishbone Vital Signs/I&O Vital Signs Date Time Temp Pulse Resp B/P (MAP) Pulse Ox O2 Delivery O2 Flow Rate FiO2 12/31/16 12:00 Room Air 12/31/16 12:00 99.6 87 16 90/47 (61) 95 111/56 (74) 12/31/16 09:30 2.0 I&O- Last 24 Hours up to 6 AM 12/31/16 06:00 Intake Total 6069 ml Output Total 2550 ml Balance 3519 ml Laboratory Data 24H LABS Laboratory Tests 2 12/31/16 04:39: Anion Gap 10, Glomerular Filtration Rate > 60.0, Blood Urea Nitrogen 20H, Creatinine 0.95, Sodium Level 144, Potassium Level 3.1L, Chloride Level 115H, Carbon Dioxide Level 19L, Calcium Level 6.7L, Aspartate Amino Transf (AST/SGOT) 28, Alanine Aminotransferase (ALT/SGPT) 21, Alkaline Phosphatase 61, Total Bilirubin 0.5, Total Protein 4.4L, Albumin 1.8#L, Magnesium Level 1.8, Albumin/ Globulin Ratio 0.69L CBC/BMP Laboratory Tests 12/31/16 04:39 Red Blood Count 3.51 L, Mean Corpuscular Volume 92.3, Mean Corpuscular Hemoglobin 30.7, Mean Corpuscular Hemoglobin Concent 33.3, Red Cell Distribution Width 14.1, Calcium Level 6.7 L, Aspartate Amino Transf (AST/SGOT) 28, Alanine Aminotransferase (ALT/SGPT) 21, Alkaline Phosphatase 61, Total Bilirubin 0.5, Total Protein 4.4 L, Albumin 1.8 #L Microbiology Microbiology 12/30/16 Blood Culture - Preliminary, Resulted No growth after 24 hours . All specim... 12/30/16 Blood Culture - Preliminary, Resulted No growth after 24 hours . All specim... ALO MCMAHON MD Dec 31, 2016 12:39
[2016-12-31] MEDS: CEFEPIME HCL 2 GM in D5W MINI-BAG PLUS 50 ML IV SCH (14:17)
[2016-12-31] MEDS: ACETAMINOPHEN TAB 650MG DOSE (2X325MG) PO PRN ×2 (17:20→21:23)
[2016-12-31] MEDS: PANTOPRAZOLE 40MG INJ (PROTONIX) (C9113) IV SCH (21:23)
[2016-12-31] MEDS ORDERED: NS 500 ML IV ONE (23:15)
[2016-12-31 23:33] LABS: MEAN CORPUSCULAR HEMOGLOBIN 30.5 pg (27.0-33.0); MEAN CORPUSCULAR HGB CONC 32.8 g/dl (32.0-36.5); MEAN CORPUSCULAR VOLUME 92.8 fl (80.0-96.0); RED CELL DISTRIBUTION WIDTH 14.6 % (11.5-14.5); WHITE BLOOD COUNT 16.9 K/mm3 (4.0-10.0)
[2017-01-01] VITALS (10 sets, daily range): BP systolic 93–155; BP diastolic 51–77
[2017-01-01 00:12] LABS: CALCIUM LEVEL 7.5 MG/DL (8.8-10.2); CREATININE FOR GFR 0.99 MG/DL (0.55-1.02); GLOMERULAR FILTRATION RATE 57.5 (>32); MAGNESIUM LEVEL 1.9 MG/DL (1.8-2.4); POTASSIUM SERUM 3.8 MEQ/L (3.5-5.1)
[2017-01-01] MEDS ORDERED: POTASSIUM CHLORIDE 10 MEQ SR TABLET PO ONE (00:45)
[2017-01-01 00:50] LABS: ALBUMIN 1.8 GM/DL (3.2-5.2)
[2017-01-01] MEDS: CEPACOL LOZENGE PO PRN ×3 (05:27→21:28)
[2017-01-01] MEDS: ACETAMINOPHEN TAB 650MG DOSE (2X325MG) PO PRN (05:27)
[2017-01-01] MEDS: LEVOTHYROXINE 25MCG TABLET (0.025MG) PO SCH (05:27)
[2017-01-01] MEDS: SODIUM CHLORIDE 0.9% INJ 10 ML SYR IV SCH ×3 (05:28→20:13)
[2017-01-01 05:35] LABS: MEAN CORPUSCULAR HEMOGLOBIN 30.3 pg (27.0-33.0); MEAN CORPUSCULAR HGB CONC 32.5 g/dl (32.0-36.5); MEAN CORPUSCULAR VOLUME 93.2 fl (80.0-96.0); RED CELL DISTRIBUTION WIDTH 14.5 % (11.5-14.5); WHITE BLOOD COUNT 16.8 K/mm3 (4.0-10.0)
[2017-01-01 06:01] LABS: ALBUMIN 1.9 GM/DL (3.2-5.2); ALBUMIN/GLOBULIN RATIO 0.66 (1.00-1.93); ALKALINE PHOSPHATASE 100 U/L (45-117); ALT/SGPT 24 U/L (12-78); ANION GAP 10 MEQ/L (8-16); AST/SGOT 30 U/L (15-37); BLOOD UREA NITROGEN 19 MG/DL (7-18); CALCIUM LEVEL 7.6 MG/DL (8.8-10.2); CARBON DIOXIDE LEVEL 19 MEQ/L (21-32); CHLORIDE LEVEL 114 MEQ/L (98-107); CREATININE FOR GFR 0.86 MG/DL (0.55-1.02); GLOMERULAR FILTRATION RATE > 60.0 (>32); GLUCOSE, FASTING 105 MG/DL (83-110); MAGNESIUM LEVEL 1.8 MG/DL (1.8-2.4); POTASSIUM SERUM 4.5 MEQ/L (3.5-5.1); SODIUM LEVEL 143 MEQ/L (136-145); TOTAL PROTEIN 4.8 GM/DL (6.4-8.2)
[2017-01-01 06:23] LABS: BILIRUBIN,TOTAL 1.1 MG/DL (0.2-1.0)
[2017-01-01] MEDS: TAMSULOSIN 0.4 MG CAP PO SCH (08:03)
[2017-01-01] MEDS: MULTIVITAMINS/MINERALS THERAP 1 TAB PO SCH (08:04)
[2017-01-01] MEDS: PERCOCET 5MG/325MG TAB PO PRN ×3 (08:04→19:38)
[2017-01-01] MEDS ORDERED: DIGOXIN INJ 0.5 MG/2 ML AMP (J1160) IV STA ×2 (08:22→14:29)
--- NOTE | 2017-01-01 09:39 | IPNPDOC ---
Subjective Date Seen The patient was seen on 01/01/17. Subjective Chief Complaint/HPI The patient is a 81-year-old female admitted with a reason for visit of Sepsis. Events since last encounter complaining of generalized body ache specially back from lying down in inclined position. No fever or chills, off levophed since yesterday morning. tachycardic . Ekg shows a fib with rvr. Objective Physical Examination General Exam: Positive: Alert, Cooperative, Mild Distress (2/2 Flank Pain) ENT Exam: Positive: Atraumatic, Negative: Mucous membr. moist/pink (dry oral mucosa) Neck Exam: Negative: JVD Chest Exam: Positive: Clear to auscultation, Normal air movement, Rales Heart Exam: Positive: Rate Normal, Normal S1, Normal S2, Negative: Gallops, Murmurs, Rubs, Other Telemetry: Positive: No significant arrhythmia, Sinus Abdomen Exam: Positive: BS Hypoactive, Soft, Tenderness (Mild tenderness to palpation in the LUQ/Left Flank area ) Extremity Exam: Negative: Clubbing, Cyanosis, Edema, Normal pulses, Tenderness , Swelling, Other Skin Exam: Positive: Nl turgor and temperature, Negative: Rash, Breakdown Psych Exam: Positive: Oriented x 3 Assessment /Plan Problems (1) Septic shock Status: Resolved Problem Text: due to obstructive pyelonephritis. was on levophed . off since 12/31/16 (2) Obstructive pyelonephritis Status: Acute Response to Treatment: Improving Problem Text: due to left ureteral stone. s/p cystoscopy and stent placement on 12/29/16 continue cefepime (3) Gram-negative bacteremia Status: Acute Problem Text: Has e coli in blood culture and ecoli in urine will continue cefepime. (4) Ureterolithiasis Status: Resolved Problem Text: in the left ureter . there was 5 mm stone (5) ECTOR (acute kidney injury) Status: Resolved Problem Text: due to septic shock , hypotension and obstructive uropathy. resolved (6) Diastolic CHF Status: Chronic Problem Text: no signs of exacerbation at present . (7) Morbid obesity Status: Chronic (8) Hypothyroid Status: Chronic (9) Atrial fibrillation Status: Resolved Problem Text: Now has a fib with rvr. will give digoxin for rate control. eliquis presently on hold. platelets low (10) Thrombocytopenia Status: Acute Problem Text: possibly due sepsis and infection possibly antibiotics. has not got any heparin this admission will continue to monitor Plan/VTE VTE Prophylaxis Ordered?: Yes (SCDs/TEDs) Plan/Urinary Catheter Reason for insertion/continuin: Critical Pt monitoring VS[facility]O Vital Signs Date Time Temp Pulse Resp B/P (MAP) Pulse Ox O2 Delivery O2 Flow Rate FiO2 01/01/17 08:47 22 93 Room Air 01/01/17 08:37 129 01/01/17 08:00 98.9 107/51 (69) 12/31/16 09:30 2.0 I&O- Last 24 Hours up to 6 AM 01/01/17 06:00 Intake Total 1060 ml Output Total 1005 ml Balance 55 ml Laboratory Data 24H LABS Laboratory Tests 2 12/31/16 23:11: Anion Gap 6L, Glomerular Filtration Rate 57.5, Blood Urea Nitrogen 20H, Creatinine 0.99, Sodium Level 139, Potassium Level 3.8#, Chloride Level 111H, Carbon Dioxide Level 22, Calcium Level 7.5L, Magnesium Level 1.9, Albumin 1.8L 01/01/17 05:19: Anion Gap 10, Glomerular Filtration Rate > 60.0, Blood Urea Nitrogen 19H, Creatinine 0.86, Sodium Level 143, Potassium Level 4.5, Chloride Level 114H, Carbon Dioxide Level 19L, Calcium Level 7.6L, Magnesium Level 1.8, Albumin 1.9L , Aspartate Amino Transf (AST/SGOT) 30, Alanine Aminotransferase (ALT/SGPT) 24, Alkaline Phosphatase 100, Total Bilirubin 1.1#H, Total Protein 4.8L, Albumin/ Globulin Ratio 0.66L CBC/BMP Laboratory Tests 12/31/16 23:11 Red Blood Count 3.25 L, Mean Corpuscular Volume 92.8, Mean Corpuscular Hemoglobin 30.5, Mean Corpuscular Hemoglobin Concent 32.8, Red Cell Distribution Width 14.6 H, Calcium Level 7.5 L 01/01/17 05:19 Red Blood Count 3.61 L, Mean Corpuscular Volume 93.2, Mean Corpuscular Hemoglobin 30.3, Mean Corpuscular Hemoglobin Concent 32.5, Red Cell Distribution Width 14.5, Calcium Level 7.6 L, Aspartate Amino Transf (AST/SGOT) 30, Alanine Aminotransferase (ALT/SGPT) 24, Alkaline Phosphatase 100, Total Bilirubin 1.1 #H, Total Protein 4.8 L, Albumin 1.9 L Microbiology Microbiology 12/30/16 Blood Culture - Preliminary, Resulted No Growth after 48 hours. All Specime... 12/30/16 Blood Culture - Preliminary, Resulted No Growth after 48 hours. All Specime... ALO MCMAHON MD Jan 01, 2017 09:39
[2017-01-01] MEDS ORDERED: DIGOXIN INJ 0.5 MG/2 ML AMP (J1160) IV ONE (11:20)
[2017-01-01] MEDS: CEFEPIME HCL 2 GM in D5W MINI-BAG PLUS 50 ML IV SCH (13:57)
[2017-01-01] MEDS: OXAZEPAM 10 MG CAP PO PRN ×2 (14:02→22:06)
[2017-01-01] MEDS: PANTOPRAZOLE 40MG INJ (PROTONIX) (C9113) IV SCH (20:13)
[2017-01-02] VITALS (7 sets, daily range): BP systolic 117–214; BP diastolic 57–71
[2017-01-02] MEDS: ACETAMINOPHEN TAB 650MG DOSE (2X325MG) PO PRN ×2 (04:24→21:57)
[2017-01-02] MEDS: SODIUM CHLORIDE 0.9% INJ 10 ML SYR IV SCH ×2 (05:09→14:24)
[2017-01-02] MEDS: LEVOTHYROXINE 25MCG TABLET (0.025MG) PO SCH (05:10)
[2017-01-02 05:14] LABS: MEAN CORPUSCULAR HEMOGLOBIN 31.4 pg (27.0-33.0); MEAN CORPUSCULAR HGB CONC 34.3 g/dl (32.0-36.5); MEAN CORPUSCULAR VOLUME 91.5 fl (80.0-96.0); RED CELL DISTRIBUTION WIDTH 14.4 % (11.5-14.5); WHITE BLOOD COUNT 14.3 K/mm3 (4.0-10.0)
[2017-01-02 06:12] LABS: ALKALINE PHOSPHATASE 93 U/L (45-117); ALT/SGPT 31 U/L (12-78); BILIRUBIN,TOTAL 1.1 MG/DL (0.2-1.0); CHLORIDE LEVEL 111 MEQ/L (98-107); CREATININE FOR GFR 0.87 MG/DL (0.55-1.02); POTASSIUM SERUM 4.1 MEQ/L (3.5-5.1); SODIUM LEVEL 140 MEQ/L (136-145); TOTAL PROTEIN 4.5 GM/DL (6.4-8.2)
[2017-01-02 06:22] LABS: ALBUMIN 1.8 GM/DL (3.2-5.2); ALBUMIN/GLOBULIN RATIO 0.67 (1.00-1.93); ANION GAP 8 MEQ/L (8-16); AST/SGOT 29 U/L (15-37); BLOOD UREA NITROGEN 18 MG/DL (7-18); CALCIUM LEVEL 8.1 MG/DL (8.8-10.2); CARBON DIOXIDE LEVEL 21 MEQ/L (21-32); GLUCOSE, FASTING 122 MG/DL (83-110); MAGNESIUM LEVEL 1.4 MG/DL (1.8-2.4)
[2017-01-02 07:20] LABS: DIGOXIN LEVEL 2.2 NG/ML (0.5-2.0)
[2017-01-02] MEDS: MAG SULF 1GM/100ML (MAG RUN) 1 GM in APPROPRIATE DILUENT 1 EA IV SCH ×2 (07:41→08:45)
[2017-01-02] MEDS: TAMSULOSIN 0.4 MG CAP PO SCH (08:45)
[2017-01-02] MEDS: MULTIVITAMINS/MINERALS THERAP 1 TAB PO SCH (08:45)
--- NOTE | 2017-01-02 08:59 | ECGEPIP ---
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
--- NOTE | 2017-01-02 10:02 | IPNPDOC ---
Subjective Date Seen The patient was seen on 01/02/17. Subjective Chief Complaint/HPI The patient is a 81-year-old female admitted with a reason for visit of Sepsis. Events since last encounter feeling much better, no tachycardia , now in sinus rhythm on tele will get ekg. no fever or chills, no chest pain or sob , no abdominal pain Objective Physical Examination General Exam: Positive: Alert, Cooperative, Mild Distress (2/2 Flank Pain) ENT Exam: Positive: Atraumatic, Negative: Mucous membr. moist/pink (dry oral mucosa) Neck Exam: Negative: JVD Chest Exam: Positive: Clear to auscultation, Normal air movement, Rales Heart Exam: Positive: Rate Normal, Normal S1, Normal S2, Negative: Gallops, Murmurs, Rubs, Other Telemetry: Positive: No significant arrhythmia, Sinus Abdomen Exam: Positive: BS Hypoactive, Soft, Tenderness (Mild tenderness to palpation in the LUQ/Left Flank area ) Extremity Exam: Negative: Clubbing, Cyanosis, Edema, Normal pulses, Tenderness , Swelling, Other Skin Exam: Positive: Nl turgor and temperature, Negative: Rash, Breakdown Psych Exam: Positive: Oriented x 3 Assessment /Plan Problems (1) Septic shock Status: Resolved Problem Text: due to obstructive pyelonephritis. was on levophed . off since 12/31/16 (2) Obstructive pyelonephritis Status: Acute Response to Treatment: Improving Problem Text: due to left ureteral stone. s/p cystoscopy and stent placement on 12/29/16 continue cefepime (3) Gram-negative bacteremia Status: Acute Problem Text: Has e coli in blood culture and ecoli in urine will continue cefepime. (4) Ureterolithiasis Status: Resolved Problem Text: in the left ureter . there was 5 mm stone (5) ECTOR (acute kidney injury) Status: Resolved Problem Text: due to septic shock , hypotension and obstructive uropathy. resolved (6) Diastolic CHF Status: Chronic Problem Text: no signs of exacerbation at present . (7) Morbid obesity Status: Chronic (8) Hypothyroid Status: Chronic (9) Atrial fibrillation Status: Resolved Problem Text: Now has a fib with rvr. will give digoxin for rate control. eliquis presently on hold. platelets low (10) Thrombocytopenia Status: Acute Problem Text: possibly due sepsis and infection possibly antibiotics. has not got any heparin this admission will continue to monitor Plan/VTE VTE Prophylaxis Ordered?: Yes (SCDs/TEDs) Plan/Urinary Catheter Reason for insertion/continuin: Critical Pt monitoring VS, I&O, 24H, Fishbone Vital Signs/I&O Vital Signs Date Time Temp Pulse Resp B/P (MAP) Pulse Ox O2 Delivery O2 Flow Rate FiO2 01/02/17 06:00 Room Air 01/02/17 04:00 100.1 93 23 136/63 (87) 94 12/31/16 09:30 2.0 I&O- Last 24 Hours up to 6 AM 01/02/17 06:00 Intake Total 1205 ml Output Total 2320 ml Balance -1115 ml Laboratory Data 24H LABS Laboratory Tests 2 01/02/17 05:00: Anion Gap 8, Blood Urea Nitrogen 18, Creatinine 0.87, Sodium Level 140, Potassium Level 4.1, Chloride Level 111H, Carbon Dioxide Level 21, Calcium Level 8.1L, Aspartate Amino Transf (AST/SGOT) 29, Alanine Aminotransferase (ALT/ SGPT) 31, Alkaline Phosphatase 93, Total Bilirubin 1.1H, Total Protein 4.5L, Albumin 1.8L, Magnesium Level 1.4L, Albumin/Globulin Ratio 0.67L, Digoxin Level 2.2H CBC/BMP Laboratory Tests 01/02/17 05:00 Red Blood Count 3.16 L, Mean Corpuscular Volume 91.5, Mean Corpuscular Hemoglobin 31.4, Mean Corpuscular Hemoglobin Concent 34.3, Red Cell Distribution Width 14.4, Calcium Level 8.1 L, Aspartate Amino Transf (AST/SGOT) 29, Alanine Aminotransferase (ALT/SGPT) 31, Alkaline Phosphatase 93, Total Bilirubin 1.1 H, Total Protein 4.5 L, Albumin 1.8 L Microbiology Microbiology 12/30/16 Blood Culture - Preliminary, Resulted No Growth after 72 hours. All specime... 12/30/16 Blood Culture - Preliminary, Resulted No Growth after 72 hours. All specime... ALO MCMAHON MD Jan 02, 2017 10:02
[2017-01-02] MEDS: PERCOCET 5MG/325MG TAB PO PRN ×2 (11:44→15:47)
[2017-01-02] MEDS: CEFEPIME HCL 2 GM in D5W MINI-BAG PLUS 50 ML IV SCH (14:24)
[2017-01-02] MEDS: PANTOPRAZOLE 40MG INJ (PROTONIX) (C9113) IV SCH (21:50)
--- NOTE | 2017-01-02 21:51 | ECGEPIP ---
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
[2017-01-03] VITALS (7 sets, daily range): BP systolic 119–158; BP diastolic 57–72
[2017-01-03] MEDS ORDERED: SLF 3 ML SYR IV PRN (02:45)
[2017-01-03 05:47] LABS: MEAN CORPUSCULAR HEMOGLOBIN 30.6 pg (27.0-33.0); MEAN CORPUSCULAR HGB CONC 32.9 g/dl (32.0-36.5); RED CELL DISTRIBUTION WIDTH 14.8 % (11.5-14.5); WHITE BLOOD COUNT 16.6 K/mm3 (4.0-10.0)
[2017-01-03] MEDS: LEVOTHYROXINE 25MCG TABLET (0.025MG) PO SCH (05:47)
[2017-01-03 06:11] LABS: ALBUMIN 1.8 GM/DL (3.2-5.2); ALBUMIN/GLOBULIN RATIO 0.46 (1.00-1.93); ALKALINE PHOSPHATASE 115 U/L (45-117); ALT/SGPT 39 U/L (12-78); ANION GAP 8 MEQ/L (8-16); AST/SGOT 31 U/L (15-37); BILIRUBIN,TOTAL 1.2 MG/DL (0.2-1.0); BLOOD UREA NITROGEN 16 MG/DL (7-18); CALCIUM LEVEL 8.2 MG/DL (8.8-10.2); CARBON DIOXIDE LEVEL 24 MEQ/L (21-32); CHLORIDE LEVEL 105 MEQ/L (98-107); CREATININE FOR GFR 0.87 MG/DL (0.55-1.02); DIGOXIN LEVEL 1.2 NG/ML (0.5-2.0); GLOMERULAR FILTRATION RATE > 60.0 (>32); GLUCOSE, FASTING 100 MG/DL (83-110); MAGNESIUM LEVEL 1.7 MG/DL (1.8-2.4); POTASSIUM SERUM 3.8 MEQ/L (3.5-5.1); SODIUM LEVEL 137 MEQ/L (136-145); TOTAL PROTEIN 5.7 GM/DL (6.4-8.2)
[2017-01-03] MEDS: MULTIVITAMINS/MINERALS THERAP 1 TAB PO SCH (07:56)
[2017-01-03] MEDS: CEFEPIME HCL 1 GM in D5W MINI-BAG PLUS 50 ML IV SCH ×2 (07:56→18:11)
[2017-01-03] MEDS: TAMSULOSIN 0.4 MG CAP PO SCH (07:56)
[2017-01-03] MEDS: MAG SULF 1GM/100ML (MAG RUN) 1 GM in APPROPRIATE DILUENT 1 EA IV SCH ×2 (08:37→09:52)
--- NOTE | 2017-01-03 09:57 | IPNPDOC ---
Subjective Date Seen The patient was seen on 01/03/17. Subjective Chief Complaint/HPI The patient is a 81-year-old female admitted with a reason for visit of Sepsis. Events since last encounter patient again had a spike of fever last night with a t max of 102.3 . no new complaints this morning. no cough or phlegm no abdominal pain or nausea or vomiting no diarrhea , no dysuria. Objective Physical Examination General Exam: Positive: Alert, Cooperative, Mild Distress (2/2 Flank Pain) Eye Exam: Positive: PERRLA, Conjunctiva & lids normal, EOMI, Negative: Sclera icteric ENT Exam: Positive: Atraumatic, Negative: Mucous membr. moist/pink (dry oral mucosa) Neck Exam: Negative: JVD Chest Exam: Positive: Clear to auscultation, Normal air movement, Rales Heart Exam: Positive: Rate Normal, Normal S1, Normal S2, Negative: Gallops, Murmurs, Rubs, Other Abdomen Exam: Positive: Normal bowel sounds, Soft Extremity Exam: Negative: Clubbing, Cyanosis, Edema, Normal pulses, Tenderness , Swelling, Other Skin Exam: Positive: Nl turgor and temperature, Negative: Rash, Breakdown Psych Exam: Positive: Oriented x 3 Assessment /Plan Problems (1) Septic shock Status: Resolved Problem Text: due to obstructive pyelonephritis. was on levophed . off since 12/31/16 (2) Obstructive pyelonephritis Status: Acute Response to Treatment: Improving Problem Text: due to left ureteral stone. s/p cystoscopy and stent placement on 12/29/16 continue cefepime has rapp sensitive ecoli in urine. (3) Gram-negative bacteremia Status: Acute Problem Text: Has e coli in blood culture and ecoli in urine will continue cefepime. (4) Ureterolithiasis Status: Resolved Problem Text: in the left ureter . there was 5 mm stone (5) ECTOR (acute kidney injury) Status: Resolved Problem Text: due to septic shock , hypotension and obstructive uropathy. resolved (6) Diastolic CHF Status: Chronic Problem Text: no signs of exacerbation at present . (7) Morbid obesity Status: Chronic (8) Hypothyroid Status: Chronic (9) Atrial fibrillation Status: Resolved Problem Text: Now has sinus rhythm Had a fib with rvr so got loaded with digoxin. will start on coreg. eliquis presently on hold. (10) Thrombocytopenia Status: Acute Problem Text: possibly due sepsis and infection possibly antibiotics. has not got any heparin this admission will continue to monitor Plan/VTE VTE Prophylaxis Ordered?: Yes (SCDs/TEDs) Plan/Urinary Catheter Reason for insertion/continuin: Critical Pt monitoring VS, I&O, 24H, Fishbone Vital Signs/I&O Vital Signs Date Time Temp Pulse Resp B/P (MAP) Pulse Ox O2 Delivery O2 Flow Rate FiO2 01/03/17 08:03 Room Air 01/03/17 08:00 98.0 90 18 155/72 (99) 96 12/31/16 09:30 2.0 I&O- Last 24 Hours up to 6 AM 01/03/17 06:00 Intake Total 770 ml Output Total 3245 ml Balance -2475 ml Laboratory Data 24H LABS Laboratory Tests 2 01/03/17 05:22: Anion Gap 8, Glomerular Filtration Rate > 60.0, Blood Urea Nitrogen 16, Creatinine 0.87, Sodium Level 137, Potassium Level 3.8, Chloride Level 105, Carbon Dioxide Level 24, Calcium Level 8.2L, Aspartate Amino Transf (AST/SGOT) 31, Alanine Aminotransferase (ALT/SGPT) 39, Alkaline Phosphatase 115, Total Bilirubin 1.2H, Total Protein 5.7#L, Albumin 1.8L, Magnesium Level 1.7L, Albumin /Globulin Ratio 0.46L, Digoxin Level 1.2 CBC/BMP Laboratory Tests 01/03/17 05:22 Red Blood Count 3.37 L, Mean Corpuscular Volume 93.0, Mean Corpuscular Hemoglobin 30.6, Mean Corpuscular Hemoglobin Concent 32.9, Red Cell Distribution Width 14.8 H, Calcium Level 8.2 L, Aspartate Amino Transf (AST/SGOT ) 31, Alanine Aminotransferase (ALT/SGPT) 39, Alkaline Phosphatase 115, Total Bilirubin 1.2 H, Total Protein 5.7 #L, Albumin 1.8 L Microbiology Microbiology 12/30/16 Blood Culture - Preliminary, Resulted No Growth after 72 hours. All specime... 12/30/16 Blood Culture - Preliminary, Resulted No Growth after 72 hours. All specime... ALO MCMAHON MD Jan 03, 2017 09:57
[2017-01-03] MEDS: CARVedilol 6.25 MG TAB PO SCH ×2 (12:12→20:47)
[2017-01-03] MEDS: PERCOCET 5MG/325MG TAB PO PRN ×2 (12:17→18:11)
[2017-01-04] VITALS (7 sets, daily range): BP systolic 119–156; BP diastolic 59–70
[2017-01-04 05:33] LABS: MEAN CORPUSCULAR HEMOGLOBIN 30.7 pg (27.0-33.0); MEAN CORPUSCULAR HGB CONC 32.9 g/dl (32.0-36.5); MEAN CORPUSCULAR VOLUME 93.1 fl (80.0-96.0); RED CELL DISTRIBUTION WIDTH 14.8 % (11.5-14.5); WHITE BLOOD COUNT 17.1 K/mm3 (4.0-10.0)
[2017-01-04 05:51] LABS: ALBUMIN 1.9 GM/DL (3.2-5.2); ALBUMIN/GLOBULIN RATIO 0.48 (1.00-1.93); ALKALINE PHOSPHATASE 113 U/L (45-117); ALT/SGPT 41 U/L (12-78); ANION GAP 9 MEQ/L (8-16); AST/SGOT 27 U/L (15-37); BILIRUBIN,TOTAL 1.1 MG/DL (0.2-1.0); BLOOD UREA NITROGEN 17 MG/DL (7-18); CALCIUM LEVEL 8.2 MG/DL (8.8-10.2); CARBON DIOXIDE LEVEL 24 MEQ/L (21-32); CHLORIDE LEVEL 104 MEQ/L (98-107); GLOMERULAR FILTRATION RATE > 60.0 (>32); GLUCOSE, FASTING 102 MG/DL (83-110); MAGNESIUM LEVEL 1.6 MG/DL (1.8-2.4); POTASSIUM SERUM 3.7 MEQ/L (3.5-5.1); SODIUM LEVEL 137 MEQ/L (136-145); TOTAL PROTEIN 5.9 GM/DL (6.4-8.2)
[2017-01-04] MEDS: CEFEPIME HCL 1 GM in D5W MINI-BAG PLUS 50 ML IV SCH ×2 (06:10→18:57)
[2017-01-04] MEDS: LEVOTHYROXINE 25MCG TABLET (0.025MG) PO SCH (06:10)
[2017-01-04] MEDS: TAMSULOSIN 0.4 MG CAP PO SCH (09:13)
[2017-01-04] MEDS: DOCUSATE SODIUM 100 MG CAP PO SCH ×2 (09:13→23:04)
[2017-01-04] MEDS: MULTIVITAMINS/MINERALS THERAP 1 TAB PO SCH (09:13)
[2017-01-04] MEDS: MIRALAX *UNIT DOSE* 17GM PACKET PO SCH ×2 (09:13→21:00)
[2017-01-04] MEDS: CARVedilol 6.25 MG TAB PO SCH ×2 (09:14→23:05)
[2017-01-04] MEDS: MAG SULF 1GM/100ML (MAG RUN) 1 GM in APPROPRIATE DILUENT 1 EA IV SCH ×2 (13:29→16:11)
[2017-01-04] MEDS ORDERED: FUROSEMIDE 40 MG/4 ML VIAL (J1940) IV ONE (14:00)
--- NOTE | 2017-01-04 19:35 | IPNPDOC ---
Date Seen The patient was seen on 01/04/17. Progress Note Hospitalist Progress Note Subjective: Patient states that she is feeling much better Objective: Physical Exam: Vitals: Vital Sign - Last 24 Hours 01/03/17 01/03/17 01/03/17 01/04/17 20:06 20:27 20:47 00:00 Temp 98.9 97.9 Pulse 72 72 68 Resp 18 18 B/P (MAP) 122/57 (78) 122/57 130/63 (85) Pulse Ox 95 97 O2 Delivery Room Air Room Air Room Air 01/04/17 01/04/17 01/04/17 01/04/17 04:00 07:30 09:10 09:14 Temp 99.5 98.5 Pulse 85 79 79 Resp 18 20 B/P (MAP) 156/68 (97) 150/70 (96) 150/70 Pulse Ox 94 95 O2 Delivery Room Air Room Air Room Air 01/04/17 01/04/17 12:00 15:45 Temp 98.0 99.8 Pulse 68 75 Resp 20 20 B/P (MAP) 142/65 (90) 137/65 (89) Pulse Ox 95 96 O2 Delivery Room Air Room Air General: Awake, alert, no acute distress HEENT: Normocephalic, atraumatic, extraocular movements intact CV: Regular rate and rhythm Lungs: Clear to auscultation bilaterally Abd: Soft, nontender, nondistended Extremities: 2+ edema bilaterally Neuro: Alert and oriented 3, normal speech Psych: Normal mood and affect Labs and Imaging: Laboratory Tests 01/04/17 05:09 Red Blood Count 3.28 L, Mean Corpuscular Volume 93.1, Mean Corpuscular Hemoglobin 30.7, Mean Corpuscular Hemoglobin Concent 32.9, Red Cell Distribution Width 14.8 H, Calcium Level 8.2 L, Aspartate Amino Transf (AST/SGOT ) 27, Alanine Aminotransferase (ALT/SGPT) 41, Alkaline Phosphatase 113, Total Bilirubin 1.1 H, Total Protein 5.9 L, Albumin 1.9 L Assessment and Plan: 81-year-old female with morbid obesity, depression, hypothyroidism, chronic grade 2 diastolic CHF, atrial fibrillation who presented to the emergency department with abdominal pain and was found to have left-sided nephrolithiasis. She was initially discharged from the emergency department, but when her blood cultures came back positive, she was called back to the emergency department. She has been admitted with septic shock secondary to urinary source. 1. Septic shock: This is now resolved. The patient is off levophed, and she has now been afebrile for 24 hours. 2. UTI and nephrolithiasis: This is the source of her septic shock. Urine culture grew pansensitive Escherichia coli. Continue cefepime. Patient has just barely been afebrile for 24 hours. Her white count still continues to be elevated, and actually has increased a little bit today from the last couple days, up to 17.1. We will plan to switch to oral antibiotics in the morning if she continues to do well. Continue Flomax for the nephrolithiasis. She is now status post left double pigtail ureteral stent placement, and will need follow- up with urology in 1-2 weeks after discharge. We will plan to remove her Singer when we transition her to oral antibiotics. 3. Bacteremia: Cultures from her initial ED visit grew pansensitive Escherichia coli, secondary to her UTI. Repeat blood cultures are negative. Continue cefepime and likely switch to oral antibiotics tomorrow. 4. Acute kidney injury: This is secondary to her septic shock. Creatinine upon admission was 1.91. This has now resolved and she is off of IV fluids. Have been holding home HCTZ and spironolactone up until this point. 5. Hypothyroidism: Continue home Synthroid. 6. Chronic grade 2 diastolic CHF: Given her initial septic shock and AK I, her HCTZ and spironolactone were initially held. She now has developed swelling in her bilateral lower extremities, so we will plan to restart her HCTZ and spironolactone, as well as give her a dose of IV Lasix. 7. Atrial fibrillation: Continue home beta adeel. Restart home eliquis. 8. Thrombocytopenia: This is likely secondary to her sepsis and infection. This has now resolved. DVT prophylaxis: eliquis Dispo: hopefully home in the next 48 hours. Patient has not cleared PT at this point. VS, I&O, 24H, Fishbone Vital Signs/I&O Vital Signs Date Time Temp Pulse Resp B/P (MAP) Pulse Ox O2 Delivery O2 Flow Rate FiO2 01/04/17 15:45 99.8 75 20 137/65 (89) 96 Room Air 12/31/16 09:30 2.0 I&O- Last 24 Hours up to 6 AM 01/04/17 06:00 Intake Total 1140 ml Output Total 1400 ml Balance -260 ml Laboratory Data 24H LABS Laboratory Tests 2 01/04/17 05:09: Anion Gap 9, Glomerular Filtration Rate > 60.0, Blood Urea Nitrogen 17, Creatinine 0.80, Sodium Level 137, Potassium Level 3.7, Chloride Level 104, Carbon Dioxide Level 24, Calcium Level 8.2L, Aspartate Amino Transf (AST/SGOT) 27, Alanine Aminotransferase (ALT/SGPT) 41, Alkaline Phosphatase 113, Total Bilirubin 1.1H, Total Protein 5.9L, Albumin 1.9L, Magnesium Level 1.6L, Albumin/ Globulin Ratio 0.48L CBC/BMP Laboratory Tests 01/04/17 05:09 Red Blood Count 3.28 L, Mean Corpuscular Volume 93.1, Mean Corpuscular Hemoglobin 30.7, Mean Corpuscular Hemoglobin Concent 32.9, Red Cell Distribution Width 14.8 H, Calcium Level 8.2 L, Aspartate Amino Transf (AST/SGOT ) 27, Alanine Aminotransferase (ALT/SGPT) 41, Alkaline Phosphatase 113, Total Bilirubin 1.1 H, Total Protein 5.9 L, Albumin 1.9 L Microbiology Microbiology 12/30/16 Blood Culture - Final, Complete NO GROWTH AFTER 5 DAYS 12/30/16 Blood Culture - Final, Complete NO GROWTH AFTER 5 DAYS SERA MORALES Jan 04, 2017 19:35
[2017-01-04] MEDS: hydroCHLOROthiazide 12.5 MG CAPSULE PO SCH (23:04)
[2017-01-04] MEDS: SPIRONOLACTONE 12.5MG PER 1/2 TABLET PO SCH (23:04)
[2017-01-04] MEDS: APIXABAN 5 MG TAB (ELIQUIS) PO SCH (23:05)
[2017-01-05 04:00] VITALS: BP 133/64
[2017-01-05 05:51] LABS: MEAN CORPUSCULAR HEMOGLOBIN 30.2 pg (27.0-33.0); MEAN CORPUSCULAR HGB CONC 33.1 g/dl (32.0-36.5); MEAN CORPUSCULAR VOLUME 91.4 fl (80.0-96.0); RED CELL DISTRIBUTION WIDTH 14.7 % (11.5-14.5); WHITE BLOOD COUNT 17.6 K/mm3 (4.0-10.0)
[2017-01-05 06:10] LABS: ALBUMIN 2.1 GM/DL (3.2-5.2); ALBUMIN/GLOBULIN RATIO 0.49 (1.00-1.93); ALKALINE PHOSPHATASE 112 U/L (45-117); ALT/SGPT 53 U/L (12-78); ANION GAP 9 MEQ/L (8-16); AST/SGOT 35 U/L (15-37); BLOOD UREA NITROGEN 17 MG/DL (7-18); CALCIUM LEVEL 7.9 MG/DL (8.8-10.2); CARBON DIOXIDE LEVEL 24 MEQ/L (21-32); CHLORIDE LEVEL 105 MEQ/L (98-107); CREATININE FOR GFR 0.73 MG/DL (0.55-1.02); GLOMERULAR FILTRATION RATE > 60.0 (>32); GLUCOSE, FASTING 102 MG/DL (83-110); MAGNESIUM LEVEL 1.8 MG/DL (1.8-2.4); POTASSIUM SERUM 3.5 MEQ/L (3.5-5.1); SODIUM LEVEL 138 MEQ/L (136-145); TOTAL PROTEIN 6.4 GM/DL (6.4-8.2)
[2017-01-05] MEDS: CEFEPIME HCL 1 GM in D5W MINI-BAG PLUS 50 ML IV SCH ×2 (06:45→18:24)
[2017-01-05] MEDS: LEVOTHYROXINE 25MCG TABLET (0.025MG) PO SCH (06:45)
[2017-01-05 07:30] VITALS: BP 139/67
[2017-01-05] MEDS: TAMSULOSIN 0.4 MG CAP PO SCH (08:24)
[2017-01-05] MEDS: DOCUSATE SODIUM 100 MG CAP PO SCH ×2 (08:24→20:31)
[2017-01-05] MEDS: MULTIVITAMINS/MINERALS THERAP 1 TAB PO SCH (08:24)
[2017-01-05] MEDS: SPIRONOLACTONE 12.5MG PER 1/2 TABLET PO SCH (08:24)
[2017-01-05] MEDS: APIXABAN 5 MG TAB (ELIQUIS) PO SCH ×2 (08:25→20:31)
[2017-01-05] MEDS: MIRALAX *UNIT DOSE* 17GM PACKET PO SCH ×2 (08:25→20:31)
[2017-01-05] MEDS: CARVedilol 6.25 MG TAB PO SCH ×2 (08:25→20:54)
[2017-01-05] MEDS: hydroCHLOROthiazide 12.5 MG CAPSULE PO SCH (08:27)
[2017-01-05 11:55] VITALS: BP 138/65
--- NOTE | 2017-01-05 13:56 | IPNPDOC ---
Date Seen The patient was seen on 01/05/17. Progress Note Hospitalist Progress Note Subjective: Patient states that she is feeling much better; only complaint is swelling her in feet and legs Objective: Physical Exam: Vitals: Vital Sign - Last 24 Hours 01/04/17 01/04/17 01/04/17 01/04/17 15:45 19:36 20:00 22:59 Temp 99.8 101.1 98.9 Pulse 75 80 94 Resp 20 18 18 B/P (MAP) 137/65 (89) 125/59 (81) 119/66 (83) Pulse Ox 96 95 94 O2 Delivery Room Air Room Air Room Air Room Air 01/04/17 01/05/17 01/05/17 01/05/17 23:05 00:30 04:00 06:00 Temp 98.2 Pulse 94 70 Resp 18 B/P (MAP) 119/66 133/64 (87) Pulse Ox 93 O2 Delivery Room Air Room Air Room Air 01/05/17 01/05/17 01/05/17 01/05/17 07:30 08:22 08:25 11:55 Temp 98.7 98.1 Pulse 80 70 68 Resp 20 20 B/P (MAP) 139/67 (91) 139/67 138/65 (89) Pulse Ox 95 96 O2 Delivery Room Air Room Air Room Air I&O- Last 24 Hours up to 6 AM 01/05/17 06:00 Intake Total 1210 ml Output Total 1600 ml Balance -390 ml General: Awake, alert, no acute distress HEENT: Normocephalic, atraumatic, extraocular movements intact CV: Regular rate and rhythm Lungs: Clear to auscultation bilaterally Abd: Soft, nontender, nondistended Extremities: 2+ edema bilaterally Neuro: Alert and oriented 3, normal speech Psych: Normal mood and affect Labs and Imaging: Laboratory Tests 01/05/17 05:19 Red Blood Count 3.31 L, Mean Corpuscular Volume 91.4, Mean Corpuscular Hemoglobin 30.2, Mean Corpuscular Hemoglobin Concent 33.1, Red Cell Distribution Width 14.7 H, Calcium Level 7.9 L, Aspartate Amino Transf (AST/SGOT ) 35, Alanine Aminotransferase (ALT/SGPT) 53, Alkaline Phosphatase 112, Total Bilirubin 1.0, Total Protein 6.4, Albumin 2.1 L Assessment and Plan: 81-year-old female with morbid obesity, depression, hypothyroidism, chronic grade 2 diastolic CHF, atrial fibrillation who presented to the emergency department with abdominal pain and was found to have left-sided nephrolithiasis. She was initially discharged from the emergency department, but when her blood cultures came back positive, she was called back to the emergency department. She has been admitted with septic shock secondary to urinary source. 1. Septic shock: This is now resolved. The patient is off levophed. 2. UTI and nephrolithiasis: This is the source of her septic shock. Urine culture grew pansensitive Escherichia coli. Continue cefepime. Patient continues to be febrile. Her white count still continues to be elevated, and actually has increased a little bit today from the last couple days, up to 17.6 ; CRP is also up. We will reculture her. Continue Flomax for the nephrolithiasis. She is now status post left double pigtail ureteral stent placement, and will need follow-up with urology in 1-2 weeks after discharge. We will plan to remove her Singer when we transition her to oral antibiotics. 3. Bacteremia: Cultures from her initial ED visit grew pansensitive Escherichia coli, secondary to her UTI. Repeat blood cultures are negative. Continue cefepime, but given continued fevers, will repeat cultures again. 4. Acute kidney injury: This is secondary to her septic shock. Creatinine upon admission was 1.91. This has now resolved and she is off of IV fluids. Initially held home HCTZ and spironolactone. 5. Hypothyroidism: Continue home Synthroid. 6. Chronic grade 2 diastolic CHF: Given her initial septic shock and ECTOR, her HCTZ and spironolactone were initially held. She now has developed swelling in her bilateral lower extremities, so we have restarted her HCTZ and spironolactone, as well as give her IV Lasix. 7. Atrial fibrillation: Continue home beta adeel. Continue home eliquis. 8. Thrombocytopenia: This is likely secondary to her sepsis and infection. This has now resolved. DVT prophylaxis: eliquis Dispo: pending diuresis and resolution of fevers; patient has been rate controlled and BP is well maintained so will transfer to floor VS, I&O, 24H, Fishbone Vital Signs/I&O Vital Signs Date Time Temp Pulse Resp B/P (MAP) Pulse Ox O2 Delivery O2 Flow Rate FiO2 01/05/17 11:55 98.1 68 20 138/65 (89) 96 Room Air 12/31/16 09:30 2.0 I&O- Last 24 Hours up to 6 AM 01/05/17 06:00 Intake Total 1210 ml Output Total 1600 ml Balance -390 ml Laboratory Data 24H LABS Laboratory Tests 2 01/05/17 05:19: Anion Gap 9, Glomerular Filtration Rate > 60.0, Blood Urea Nitrogen 17, Creatinine 0.73, Sodium Level 138, Potassium Level 3.5, Chloride Level 105, Carbon Dioxide Level 24, Calcium Level 7.9L, Aspartate Amino Transf (AST/SGOT) 35, Alanine Aminotransferase (ALT/SGPT) 53, Alkaline Phosphatase 112, Total Bilirubin 1.0, Total Protein 6.4, Albumin 2.1L, Magnesium Level 1.8, C-Reactive Protein, Quantitative 13.40H, Albumin/Globulin Ratio 0.49L CBC/BMP Laboratory Tests 01/05/17 05:19 Red Blood Count 3.31 L, Mean Corpuscular Volume 91.4, Mean Corpuscular Hemoglobin 30.2, Mean Corpuscular Hemoglobin Concent 33.1, Red Cell Distribution Width 14.7 H, Calcium Level 7.9 L, Aspartate Amino Transf (AST/SGOT ) 35, Alanine Aminotransferase (ALT/SGPT) 53, Alkaline Phosphatase 112, Total Bilirubin 1.0, Total Protein 6.4, Albumin 2.1 L Microbiology Microbiology 01/05/17 Blood Culture, Received Pending 01/05/17 Blood Culture, Received Pending 12/30/16 Blood Culture - Final, Complete NO GROWTH AFTER 5 DAYS 12/30/16 Blood Culture - Final, Complete NO GROWTH AFTER 5 DAYS SERA MORALES Jan 05, 2017 13:56
[2017-01-05] MEDS ORDERED: FUROSEMIDE 40 MG/4 ML VIAL (J1940) IV ONE ×2 (15:00→19:00)
[2017-01-05 15:50] VITALS: BP 130/60
[2017-01-05 18:00] VITALS: BP 142/64
[2017-01-05] MEDS: PERCOCET 5MG/325MG TAB PO PRN (18:25)
[2017-01-05] MEDS: ACETAMINOPHEN TAB 650MG DOSE (2X325MG) PO PRN ×2 (18:36→22:55)
[2017-01-05 22:00] VITALS: BP 122/59
[2017-01-06 02:00] VITALS: BP 120/57
[2017-01-06] MEDS: ACETAMINOPHEN TAB 650MG DOSE (2X325MG) PO PRN (04:20)
[2017-01-06] MEDS: LEVOTHYROXINE 25MCG TABLET (0.025MG) PO SCH (05:37)
[2017-01-06 06:00] VITALS: BP 137/64
[2017-01-06 06:43] LABS: BASO # 0.1 K/mm3 (0.0-0.2); BASO % 0.4 % (0.0-1.0); EOS # 0.2 K/mm3 (0.0-0.50); EOS % 1.2 % (0.0-3.0); LARGE UNSTAINED CELL # 0.4 K/mm3 (0.0-0.4); LARGE UNSTAINED CELL % 2.7 % (0.0-4.0); LYMPH # 1.4 K/mm3 (1.5-4.5); LYMPH % 6.1 % (24.0-44.0); MEAN CORPUSCULAR HEMOGLOBIN 30.1 pg (27.0-33.0); MEAN CORPUSCULAR HGB CONC 33.5 g/dl (32.0-36.5); MEAN CORPUSCULAR VOLUME 89.8 fl (80.0-96.0); MONO # 0.9 K/mm3 (0.0-0.8); NEUTROPHILS # 12.9 K/mm3 (1.8-7.7); NEUTROPHILS % 83.6 % (36.0-66.0); PLATELET COUNT, AUTOMATED 286 k/mm3 (150-450); RED CELL DISTRIBUTION WIDTH 14.5 % (11.5-14.5); WHITE BLOOD COUNT 15.4 K/mm3 (4.0-10.0)
[2017-01-06] MEDS: CEFEPIME HCL 1 GM in D5W MINI-BAG PLUS 50 ML IV SCH (06:43)
[2017-01-06 07:03] LABS: ALBUMIN 2.1 GM/DL (3.2-5.2); ALBUMIN/GLOBULIN RATIO 0.47 (1.00-1.93); ALKALINE PHOSPHATASE 102 U/L (45-117); ALT/SGPT 49 U/L (12-78); ANION GAP 10 MEQ/L (8-16); AST/SGOT 31 U/L (15-37); BLOOD UREA NITROGEN 19 MG/DL (7-18); CALCIUM LEVEL 8.3 MG/DL (8.8-10.2); CARBON DIOXIDE LEVEL 27 MEQ/L (21-32); CHLORIDE LEVEL 102 MEQ/L (98-107); CREATININE FOR GFR 0.68 MG/DL (0.55-1.02); GLOMERULAR FILTRATION RATE > 60.0 (>32); GLUCOSE, FASTING 99 MG/DL (83-110); MAGNESIUM LEVEL 1.7 MG/DL (1.8-2.4); POTASSIUM SERUM 3.1 MEQ/L (3.5-5.1); SODIUM LEVEL 139 MEQ/L (136-145); TOTAL PROTEIN 6.6 GM/DL (6.4-8.2)
[2017-01-06] MEDS: MULTIVITAMINS/MINERALS THERAP 1 TAB PO SCH (08:37)
[2017-01-06] MEDS: MAG SULF 1GM/100ML (MAG RUN) 1 GM in APPROPRIATE DILUENT 1 EA IV SCH ×2 (08:37→10:18)
[2017-01-06] MEDS: POTASSIUM CHLORIDE 10 MEQ SR TABLET PO SCH ×2 (08:37→11:33)
[2017-01-06] MEDS: MIRALAX *UNIT DOSE* 17GM PACKET PO SCH ×2 (08:37→20:51)
[2017-01-06] MEDS: APIXABAN 5 MG TAB (ELIQUIS) PO SCH ×2 (08:38→20:51)
[2017-01-06] MEDS: CARVedilol 6.25 MG TAB PO SCH ×2 (08:38→20:52)
[2017-01-06] MEDS: DOCUSATE SODIUM 100 MG CAP PO SCH ×2 (08:38→20:51)
[2017-01-06] MEDS: SPIRONOLACTONE 12.5MG PER 1/2 TABLET PO SCH (08:38)
[2017-01-06] MEDS: LevoFLOXacin 750 MG TABLET PO SCH (08:38)
[2017-01-06] MEDS: TAMSULOSIN 0.4 MG CAP PO SCH (08:38)
[2017-01-06] MEDS: hydroCHLOROthiazide 12.5 MG CAPSULE PO SCH (08:38)
[2017-01-06] MEDS: FUROSEMIDE 40 MG/4 ML VIAL (J1940) IV SCH ×2 (09:26→18:00)
[2017-01-06 10:00] VITALS: BP 151/71
--- NOTE | 2017-01-06 12:50 | IPNPDOC ---
Date Seen The patient was seen on 01/06/17. Progress Note Hospitalist Progress Note Subjective: Patient states that she is feeling much better; only complaint is her arthritis pain is not controlled; she states that at home she takes Tylenol Arthritis ER 2 tabs q8H Objective: Physical Exam: Vitals: Vital Sign - Last 24 Hours 01/05/17 01/05/17 01/05/17 01/05/17 15:50 16:01 18:00 19:30 Temp 99.1 97.6 Pulse 94 74 Resp 18 18 B/P (MAP) 130/60 (83) 142/64 (90) Pulse Ox 94 96 O2 Delivery Room Air Room Air Room Air Room Air 01/05/17 01/05/17 01/06/17 01/06/17 20:54 22:00 02:00 06:00 Temp 98.6 97.7 98.5 Pulse 79 79 60 63 Resp 20 20 18 B/P (MAP) 122/59 122/59 (80) 120/57 (78) 137/64 (88) Pulse Ox 94 98 100 01/06/17 01/06/17 01/06/17 08:38 09:30 10:00 Temp 98.7 Pulse 63 76 Resp 18 B/P (MAP) 137/64 151/71 (97) Pulse Ox 93 O2 Delivery Room Air Room Air I&O- Last 24 Hours up to 6 AM 01/06/17 06:00 Intake Total 1500 ml Output Total 4000 ml Balance -2500 ml General: Awake, alert, no acute distress HEENT: Normocephalic, atraumatic, extraocular movements intact CV: Regular rate and rhythm Lungs: Clear to auscultation bilaterally Abd: Soft, nontender, nondistended Extremities: beginning to have wrinkles but still with bilateral edema Neuro: Alert and oriented 3, normal speech Psych: Normal mood and affect Labs and Imaging: Laboratory Tests 01/06/17 06:08 Red Blood Count 3.21 L, Mean Corpuscular Volume 89.8, Mean Corpuscular Hemoglobin 30.1, Mean Corpuscular Hemoglobin Concent 33.5, Red Cell Distribution Width 14.5, Neutrophils (%) (Auto) 83.6 H, Lymphocytes (%) (Auto) 6.1 L, Monocytes (%) (Auto) 6.0 H, Eosinophils (%) (Auto) 1.2, Basophils (%) ( Auto) 0.4, Neutrophils # (Auto) 12.9 H, Lymphocytes # (Auto) 1.4 L, Monocytes # (Auto) 0.9 H, Eosinophils # (Auto) 0.2, Basophils # (Auto) 0.1, Calcium Level 8.3 L, Aspartate Amino Transf (AST/SGOT) 31, Alanine Aminotransferase (ALT/SGPT ) 49, Alkaline Phosphatase 102, Total Bilirubin 1.0, Total Protein 6.6, Albumin 2.1 L Assessment and Plan: 81-year-old female with morbid obesity, depression, hypothyroidism, chronic grade 2 diastolic CHF, atrial fibrillation who presented to the emergency department with abdominal pain and was found to have left-sided nephrolithiasis. She was initially discharged from the emergency department, but when her blood cultures came back positive, she was called back to the emergency department. She has been admitted with septic shock secondary to urinary source. 1. Septic shock: This is now resolved. The patient is off levophed. 2. UTI and nephrolithiasis: This is the source of her septic shock. Urine culture grew pansensitive Escherichia coli. Patient is finally afebrile, so we will change her from cefepime to levaquin. Her white count is decreased today, as is her CRP. Repeat cultures pending. Continue Flomax for the nephrolithiasis. She is now status post left double pigtail ureteral stent placement, and will need follow-up with urology in 1-2 weeks after discharge. 3. Bacteremia: Cultures from her initial ED visit grew pansensitive Escherichia coli, secondary to her UTI. Repeat blood cultures are negative. Transition to PO levaquin; most recent set of cultures are pending. 4. Acute kidney injury: This is secondary to her septic shock. Creatinine upon admission was 1.91. This has now resolved and she is off of IV fluids. Initially held home HCTZ and spironolactone. 5. Hypothyroidism: Continue home Synthroid. 6. Chronic grade 2 diastolic CHF: Given her initial septic shock and ECTOR, her HCTZ and spironolactone were initially held. She now has developed swelling in her bilateral lower extremities, so we have restarted her HCTZ and spironolactone, as well as give her IV Lasix. 7. Atrial fibrillation: Continue home beta adeel. Continue home eliquis. 8. Thrombocytopenia: This is likely secondary to her sepsis and infection. This has now resolved. DVT prophylaxis: [email or web address] Dispo: pending diuresis and PT/OT clearance VS, I&O, 24H, Fishbone Vital Signs/I&O Vital Signs Date Time Temp Pulse Resp B/P (MAP) Pulse Ox O2 Delivery O2 Flow Rate FiO2 01/06/17 10:00 98.7 76 18 151/71 (97) 93 Room Air 12/31/16 09:30 2.0 I&O- Last 24 Hours up to 6 AM 01/06/17 06:00 Intake Total 1500 ml Output Total 4000 ml Balance -2500 ml Laboratory Data 24H LABS Laboratory Tests 2 01/06/17 06:08: White Blood Count 15.4H, Red Blood Count 3.21L, Hemoglobin 9.7L, Hematocrit 28.9L, Mean Corpuscular Volume 89.8, Mean Corpuscular Hemoglobin 30.1, Mean Corpuscular Hemoglobin Concent 33.5, Red Cell Distribution Width 14.5, Platelet Count 286, Neutrophils (%) (Auto) 83.6H, Lymphocytes (%) (Auto) 6.1L, Monocytes (%) (Auto) 6.0H, Eosinophils (%) (Auto) 1.2, Basophils (%) (Auto) 0.4, Neutrophils # (Auto) 12.9H, Lymphocytes # (Auto) 1.4L, Monocytes # (Auto) 0.9H, Eosinophils # (Auto) 0.2, Basophils # (Auto) 0.1, Large Unclassified Cells % 2.7 , Large Unclassified Cells # 0.4, Anion Gap 10, Glomerular Filtration Rate > 60.0, Blood Urea Nitrogen 19H, Creatinine 0.68, Sodium Level 139, Potassium Level 3.1L, Chloride Level 102, Carbon Dioxide Level 27, Calcium Level 8.3L, Aspartate Amino Transf (AST/SGOT) 31, Alanine Aminotransferase (ALT/SGPT) 49, Alkaline Phosphatase 102, Total Bilirubin 1.0, Total Protein 6.6, Albumin 2.1L, Magnesium Level 1.7L, C-Reactive Protein, Quantitative 11.90H, Albumin/Globulin Ratio 0.47L CBC/BMP Laboratory Tests 01/06/17 06:08 Red Blood Count 3.21 L, Mean Corpuscular Volume 89.8, Mean Corpuscular Hemoglobin 30.1, Mean Corpuscular Hemoglobin Concent 33.5, Red Cell Distribution Width 14.5, Neutrophils (%) (Auto) 83.6 H, Lymphocytes (%) (Auto) 6.1 L, Monocytes (%) (Auto) 6.0 H, Eosinophils (%) (Auto) 1.2, Basophils (%) ( Auto) 0.4, Neutrophils # (Auto) 12.9 H, Lymphocytes # (Auto) 1.4 L, Monocytes # (Auto) 0.9 H, Eosinophils # (Auto) 0.2, Basophils # (Auto) 0.1, Calcium Level 8.3 L, Aspartate Amino Transf (AST/SGOT) 31, Alanine Aminotransferase (ALT/SGPT ) 49, Alkaline Phosphatase 102, Total Bilirubin 1.0, Total Protein 6.6, Albumin 2.1 L Microbiology Microbiology 01/05/17 Blood Culture - Preliminary, Resulted No growth after 24 hours . All specim... 01/05/17 Blood Culture - Preliminary, Resulted No growth after 24 hours . All specim... 12/30/16 Blood Culture - Final, Complete NO GROWTH AFTER 5 DAYS 12/30/16 Blood Culture - Final, Complete NO GROWTH AFTER 5 DAYS 01/05/17 Urine Culture, Received Pending SERA MORALES Jan 06, 2017 12:50
[2017-01-06 14:00] VITALS: BP 120/56
[2017-01-06] MEDS: ACETAMINOPHEN 650MG ER TAB (TYLENOL ARTHRITIS) PO SCH ×2 (14:09→21:29)
[2017-01-06 18:00] VITALS: BP 126/60
[2017-01-06 22:00] VITALS: BP 130/61
[2017-01-07 02:00] VITALS: BP 126/60
[2017-01-07] MEDS: LevoFLOXacin 750 MG TABLET PO SCH (05:25)
[2017-01-07] MEDS: ACETAMINOPHEN 650MG ER TAB (TYLENOL ARTHRITIS) PO SCH ×2 (05:25→13:52)
[2017-01-07] MEDS: LEVOTHYROXINE 25MCG TABLET (0.025MG) PO SCH (05:25)
[2017-01-07 06:00] VITALS: BP 134/61
[2017-01-07 07:22] LABS: BASO # 0.1 K/mm3 (0.0-0.2); BASO % 0.5 % (0.0-1.0); EOS # 0.2 K/mm3 (0.0-0.50); EOS % 1.5 % (0.0-3.0); LARGE UNSTAINED CELL # 0.5 K/mm3 (0.0-0.4); LARGE UNSTAINED CELL % 3.7 % (0.0-4.0); LYMPH % 8.3 % (24.0-44.0); MEAN CORPUSCULAR HEMOGLOBIN 30.5 pg (27.0-33.0); MEAN CORPUSCULAR HGB CONC 33.9 g/dl (32.0-36.5); MONO # 0.7 K/mm3 (0.0-0.8); MONO % 5.7 % (0.0-5.0); NEUTROPHILS % 80.4 % (36.0-66.0); PLATELET COUNT, AUTOMATED 353 k/mm3 (150-450); RED CELL DISTRIBUTION WIDTH 14.3 % (11.5-14.5); WHITE BLOOD COUNT 12.4 K/mm3 (4.0-10.0)
[2017-01-07 07:27] LABS: ALBUMIN 2.1 GM/DL (3.2-5.2); ALBUMIN/GLOBULIN RATIO 0.49 (1.00-1.93); ALKALINE PHOSPHATASE 92 U/L (45-117); ALT/SGPT 44 U/L (12-78); ANION GAP 9 MEQ/L (8-16); AST/SGOT 29 U/L (15-37); BILIRUBIN,TOTAL 0.7 MG/DL (0.2-1.0); BLOOD UREA NITROGEN 16 MG/DL (7-18); CARBON DIOXIDE LEVEL 29 MEQ/L (21-32); CHLORIDE LEVEL 102 MEQ/L (98-107); CREATININE FOR GFR 0.85 MG/DL (0.55-1.02); GLOMERULAR FILTRATION RATE > 60.0 (>32); GLUCOSE, FASTING 98 MG/DL (83-110); MAGNESIUM LEVEL 1.9 MG/DL (1.8-2.4); POTASSIUM SERUM 3.7 MEQ/L (3.5-5.1); SODIUM LEVEL 140 MEQ/L (136-145); TOTAL PROTEIN 6.4 GM/DL (6.4-8.2)
[2017-01-07] MEDS: SPIRONOLACTONE 12.5MG PER 1/2 TABLET PO SCH (08:33)
[2017-01-07 08:34] VITALS: BP 134/61
[2017-01-07] MEDS: CARVedilol 6.25 MG TAB PO SCH (08:34)
[2017-01-07] MEDS: TAMSULOSIN 0.4 MG CAP PO SCH (08:34)
[2017-01-07] MEDS: MULTIVITAMINS/MINERALS THERAP 1 TAB PO SCH (08:34)
[2017-01-07] MEDS: DOCUSATE SODIUM 100 MG CAP PO SCH (08:34)
[2017-01-07] MEDS: FUROSEMIDE 40 MG/4 ML VIAL (J1940) IV SCH (08:34)
[2017-01-07] MEDS: APIXABAN 5 MG TAB (ELIQUIS) PO SCH (08:34)
[2017-01-07] MEDS: hydroCHLOROthiazide 12.5 MG CAPSULE PO SCH (08:34)
[2017-01-07] MEDS: MIRALAX *UNIT DOSE* 17GM PACKET PO SCH (08:35)
[2017-01-07] MEDS ORDERED: CARV6.25 PO (14:56)
[2017-01-07] MEDS ORDERED: LEVA750T7 PO (14:56)
[2017-01-07] MEDS ORDERED: LASI40TA PO (14:57)
--- NOTE | 2017-01-07 14:58 | DS.PDOC ---
Discharge Summary General Date of Admission Dec 29, 2016 at 15:21 Date of Discharge 01/07/2017 Discharge Summary DISCHARGE SUMMARY DATE OF ADMISSION: 12/29/2016 DATE OF DISCHARGE: 01/07/2017 PRIMARY CARE PHYSICIAN: Dr. Alber Noguera DISCHARGE DIAGNOS(E)S: Septic shock secondary to UTI Nephrolithiasis Bacteremia Acute kidney injury Thrombocytopenia Acute on chronic grade 2 diastolic CHF HPI & HOSPITAL COURSE: 81-year-old female with morbid obesity, depression, hypothyroidism, chronic grade 2 diastolic CHF, atrial fibrillation who presented to the emergency department with abdominal pain and was found to have left-sided nephrolithiasis. She was initially discharged from the emergency department, but when her blood cultures came back positive, she was called back to the emergency department. She has been admitted with septic shock secondary to urinary source. 1. Septic shock: This is now resolved. The patient is off levophed. 2. UTI and nephrolithiasis: This is the source of her septic shock. Urine culture grew pansensitive Escherichia coli. Patient is afebrile, and has been changed to oral levaquin. Her white count is decreased today, as is her CRP. Repeat cultures negative. Continue Flomax for the nephrolithiasis. She is now status post left double pigtail ureteral stent placement, and will need follow- up with urology in 1-2 weeks after discharge. 3. Bacteremia: Cultures from her initial ED visit grew pansensitive Escherichia coli, secondary to her UTI. Repeat blood cultures are negative. Transitioned to PO levaquin. 4. Acute kidney injury: This is secondary to her septic shock. Creatinine upon admission was 1.91. This has now resolved and she is off of IV fluids. Initially held home HCTZ and spironolactone. 5. Hypothyroidism: Continue home Synthroid. 6. Chronic grade 2 diastolic CHF: Given her initial septic shock and ECTOR, her HCTZ and spironolactone were initially held. She now has developed swelling in her bilateral lower extremities, so we have restarted her HCTZ and spironolactone, as well as give her IV Lasix. She is now ready to be transitioned from IV to oral lasix. She has not previously been on scheduled lasix, and her PCP will need to check a BMP upon follow up. 7. Atrial fibrillation: Continue home beta adeel. Continue home eliquis. 8. Thrombocytopenia: This is likely secondary to her sepsis and infection. This has now resolved. DVT prophylaxis: eliquis PHYSICAL EXAMINATION ON DISCHARGE: VITAL SIGNS: Vital Signs Date Time Temp Pulse Resp B/P (MAP) Pulse Ox O2 Delivery O2 Flow Rate FiO2 01/07/17 08:34 66 134/61 01/07/17 08:30 Room Air 01/07/17 06:00 97.8 20 97 General: Awake, alert, no acute distress HEENT: Normocephalic, atraumatic, extraocular movements intact CV: Regular rate and rhythm Lungs: Clear to auscultation bilaterally Abd: Soft, nontender, nondistended Extremities: beginning to have wrinkles but still with 1+ edema Neuro: Alert and oriented 3, normal speech Psych: Normal mood and affect DISPOSITION: Home with home PT and nursing DISCHARGE INSTRUCTIONS: PCP Dr. Alber Noguera within 1 week; he will need to check a BMP as the patient has been started on daily Lasix. Follow-up Dr. Anthony in 1 week. If symptoms return, or if you experience worsening of your symptoms, please call your doctor or return to the emergency department. ITEMS THAT NEED OUTPATIENT FOLLOWUP: Removal of ureteral stent at the discretion of urology BMP checks since the patient has been started on daily Lasix Patient was seen and examined by me on the day of discharge, and I spent a total time of greater than 30 minutes on this discharge. Vital Signs/I&Os Vital Signs Date Time Temp Pulse Resp B/P (MAP) Pulse Ox O2 Delivery O2 Flow Rate FiO2 01/07/17 08:34 66 134/61 01/07/17 08:30 Room Air 01/07/17 06:00 97.8 20 97 I&O- Last 24 Hours up to 6 AM 01/07/17 06:00 Intake Total 1310 ml Output Total 1550 ml Balance -240 ml Laboratory Data Labs 24H Laboratory Tests 2 01/07/17 06:32: White Blood Count 12.4H, Red Blood Count 3.20L, Hemoglobin 9.8L, Hematocrit 28.8L, Mean Corpuscular Volume 90.0, Mean Corpuscular Hemoglobin 30.5, Mean Corpuscular Hemoglobin Concent 33.9, Red Cell Distribution Width 14.3, Platelet Count 353, Neutrophils (%) (Auto) 80.4H, Lymphocytes (%) (Auto) 8.3L, Monocytes (%) (Auto) 5.7H, Eosinophils (%) (Auto) 1.5, Basophils (%) (Auto) 0.5, Neutrophils # (Auto) 10.0H, Lymphocytes # (Auto) 1.0L, Monocytes # (Auto) 0.7, Eosinophils # (Auto) 0.2, Basophils # (Auto) 0.1, Large Unclassified Cells % 3.7 , Large Unclassified Cells # 0.5H, Anion Gap 9, Glomerular Filtration Rate > 60.0, Blood Urea Nitrogen 16, Creatinine 0.85, Sodium Level 140, Potassium Level 3.7, Chloride Level 102, Carbon Dioxide Level 29, Calcium Level 8.0L, Aspartate Amino Transf (AST/SGOT) 29, Alanine Aminotransferase (ALT/SGPT) 44, Alkaline Phosphatase 92, Total Bilirubin 0.7, Total Protein 6.4, Albumin 2.1L, Magnesium Level 1.9, C-Reactive Protein, Quantitative 10.20H, Albumin/Globulin Ratio 0.49L CBC/BMP Laboratory Tests 01/07/17 06:32 Red Blood Count 3.20 L, Mean Corpuscular Volume 90.0, Mean Corpuscular Hemoglobin 30.5, Mean Corpuscular Hemoglobin Concent 33.9, Red Cell Distribution Width 14.3, Neutrophils (%) (Auto) 80.4 H, Lymphocytes (%) (Auto) 8.3 L, Monocytes (%) (Auto) 5.7 H, Eosinophils (%) (Auto) 1.5, Basophils (%) ( Auto) 0.5, Neutrophils # (Auto) 10.0 H, Lymphocytes # (Auto) 1.0 L, Monocytes # (Auto) 0.7, Eosinophils # (Auto) 0.2, Basophils # (Auto) 0.1, Calcium Level 8.0 L, Aspartate Amino Transf (AST/SGOT) 29, Alanine Aminotransferase (ALT/SGPT) 44 , Alkaline Phosphatase 92, Total Bilirubin 0.7, Total Protein 6.4, Albumin 2.1 L Microbiology Microbiology 01/05/17 Blood Culture - Preliminary, Resulted No Growth after 48 hours. All Specime... 01/05/17 Blood Culture - Preliminary, Resulted No Growth after 48 hours. All Specime... 12/30/16 Blood Culture - Final, Complete NO GROWTH AFTER 5 DAYS 12/30/16 Blood Culture - Final, Complete NO GROWTH AFTER 5 DAYS 01/05/17 Urine Culture - Final, Complete Discharge Medications Scheduled (Glucosamine & Chondroitin 500-400 mg) 1 Cap Cap, 1 CAP PO DAILY, (Reported) (Probiotic) 1 Tab Tab, 1 TAB PO DAILY, (Reported) Acetaminophen (Acetaminophen) 500 Mg Tab, 500 MG PO Q8H, (Reported) Apixaban Base (Eliquis) 5 Mg Tab, 5 MG PO BID, (Reported) Carvedilol (Carvedilol) 6.25 Mg Tab, 6.25 MG PO Q12H Cholecalciferol (Vitamin D) 1,000 Unit Tab, 1,000 UNIT PO DAILY, (Reported) Curcuma Longa (Turmeric) Extra (Turmeric) 500 Mg Tab, 500 MG PO DAILY, (Reported ) Folic Acid (Folic Acid) 1 Mg Tab, 1 MG PO DAILY, (Reported) Furosemide (Lasix) 40 Mg Tab, 40 MG PO DAILY Hctz/Spironolactone (Spironolactone/Hydrochlor 25-25 mg) 1 Ea Tab, 0.5 TAB PO DAILY, (Reported) Levofloxacin Hemihydrate (Levaquin) 750 Mg Tab, 750 MG PO DAILY Levothyroxine Sodium (Synthroid) 25 Mcg Tab, 25 MCG PO DAILY, (Reported) Multivitamins *[facility] STOCKED* (Thera M Plus *[facility] STOCKED*) 1 Tab Tab, 1 TAB PO DAILY, (Reported) Tamsulosin Hydrochloride (Flomax) 0.4 Mg Cap, 0.4 MG PO DAILY, (Reported) NEW MED FROM 12/28, NOT STARTED Thiamine HCl (Thiamine HCl) 100 Mg Tab, 100 MG PO DAILY, (Reported) Scheduled PRN Oxycodone/Acetaminophen (Oxycodone/Acetaminophen 5-325 mg) 1 Tab Tab, 1 TAB PO Q6H PRN for PAIN, (Reported) Allergies Coded Allergies: Penicillins (Verified Allergy, Intermediate, rash, 07/10/16) SERA MORALES Jan 07, 2017 14:58
== END 2017-01-07 15:56 | disposition home health service (06) | DRG 871 ==
LOC: M ED 12:53 → M ED INP 15:21 → M ICU 17:20 → M PCU 01-03 01:46 → M MSPAV 01-05 15:46
PROVIDERS: ADMIT Internal Medicine; ATTEND Hospitalist
PROC: 02HV33Z Insertion of Infusion Device into Superior Vena Cava, Percutaneous Approach (ICD-10-PCS; 2016-12-29)
PROC: 0T773DZ Dilation of Left Ureter with Intraluminal Device, Percutaneous Approach (ICD-10-PCS; 2016-12-29)
PROC: 03HB33Z Insertion of Infusion Device into Right Radial Artery, Percutaneous Approach (ICD-10-PCS; principal; 2016-12-29 19:00)
DX: A41.50 Gram-negative sepsis, unspecified (principal); R65.21 Severe sepsis with septic shock; I50.33 Acute on chronic diastolic (congestive) heart failure; N13.6 Pyonephrosis; E87.2 Acidosis; N17.9 Acute kidney failure, unspecified; N20.1 Calculus of ureter; D69.6 Thrombocytopenia, unspecified; E66.01 Morbid (severe) obesity due to excess calories; F32.9 Major depressive disorder, single episode, unspecified; E03.9 Hypothyroidism, unspecified; I48.91 Unspecified atrial fibrillation; R11.0 Nausea; Z66 Do not resuscitate; Z79.01 Long term (current) use of anticoagulants; Z79.899 Other long term (current) drug therapy; Z68.33 Body mass index [BMI] 33.0-33.9, adult; Z88.0 Allergy status to penicillin

== ENCOUNTER → 2017-01-24 | Outpatient (CLI) | payer MEDICARE ==
[~2017-01-24] MED LIST changes: +ACET50TAOT PO; +ALDA25TA PO; +CARV6.25 PO; +LASI40TA PO; +LEVA750T7 PO; +OXYC1TAB23 PO; +PROB1TAB PO; +THIA100T6 PO; +TURM500T PO
[2017-01-24 19:02] LABS: CALCIUM LEVEL 9.8 MG/DL (8.8-10.2); CREATININE FOR GFR 1.08 MG/DL (0.55-1.02)
[2017-01-24 19:29] LABS: MEAN CORPUSCULAR HEMOGLOBIN 29.4 pg (27.0-33.0); MEAN CORPUSCULAR HGB CONC 32.2 g/dl (32.0-36.5); MEAN CORPUSCULAR VOLUME 91.4 fl (80.0-96.0); RED CELL DISTRIBUTION WIDTH 14.8 % (11.5-14.5)
== END ==
LOC: M SMT 14:44
PROVIDERS: ATTEND Urology
DX: N20.0 Calculus of kidney (principal)

== ENCOUNTER → 2017-01-25 | Outpatient (REF) | payer MEDICARE ==
[2017-01-25 20:33] LABS: CALCIUM OXALATE CRYSTALS SMALL
== END ==
LOC: M SMT 16:52
PROVIDERS: ATTEND Urology
DX: N20.0 Calculus of kidney (principal)

== ENCOUNTER → 2017-02-09 | Outpatient (REF) | payer MEDICARE | LOC: M SMT 15:03 | PROVIDERS: ATTEND Urology | DX: N20.0 Calculus of kidney (principal) ==

== ENCOUNTER → 2017-02-10 | Outpatient (CLI) | payer MEDICARE ==
--- NOTE | 2017-02-10 19:38 | REP ---
CT ABDOMEN PELVIS WITHOUT CONTRAST: 02/10/2017. Clinical history: Kidney stone. Comparison: CT 12/29/2016, retrograde pyelogram 12/29/2016. Technique: Noncontrast images through the abdomen and pelvis with coronal and sagittal reconstructions provided. Findings:CT abdomen/pelvis: Lung bases are clear. Heart is not enlarged. There is no pericardial thickening or effusion. Mitral annular calcifications are seen in part. Small hiatal hernia. There is no hepatosplenomegaly, focal hepatic or splenic lesion nor intrahepatic biliary dilatation. Gallbladder partially contracted without calcified stone or mass. Pancreas unremarkable. Adrenal glands intact. Atherosclerotic calcifications in the aorta and iliac vessels without aneurysm. No periaortic or other retroperitoneal pathologic sized lymphadenopathy. Right kidney shows no stone, hydronephrosis or masses. Some scarring of the lower pole and an exophytic cyst off the lower pole on that right side. Left kidney shows a double pigtail internal ureteral stent coiled proximally in the renal pelvis and distally in the bladder. In the lower pole of the pelvis is a 7 mm stone which is not present there on the previous CT and I believe this is the same stone that was in the [facility] on the previous study. Perinephric stranding is resolved. Hydronephrosis has largely resolved. The calcification on images 101-105 on the left parallel to the internal ureteral stent on the left side of the pelvis, which may be fragments of stone or an adjacent vascular calcification. I would favor the latter based on appearance of the previous CT 12/29/2016. A double pigtail stent coiled in the bladder is noted without bladder stone, wall thickening or mass. Small bowel loops and colon unchanged. No free air. There is no ventral or inguinal hernia. Bones are unchanged from previous study. 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 Facet arthropathy without spondylolysis at other levels. Impression: 1. Double pigtail stent now present coiled proximally in the renal pelvis, distally in the bladder on that left side with the 7 mm stone previously seen in the [facility] on that previous CT, now in the lower pole of the left collecting system.2. Resolution of the hydronephrosis and hydroureter. I do not see other significant finding or interval change related to urinary tract. 3. Other chronic changes in the abdomen and pelvis as described above. Signed by Geremias Tarango MD 02/10/2017 08:18 P
== END ==
LOC: M RAD 17:19
PROVIDERS: ATTEND Urology
DX: N20.0 Calculus of kidney (principal)

== ENCOUNTER → 2017-02-22 | Outpatient (CLI) | payer MEDICARE ==
[2017-02-22 10:22] LABS: BASO # 0.1 10^3/uL (0.0-0.2); BASO % 0.9 % (0.0-1.0); EOS # 0.4 10^3/uL (0.0-0.50); EOS % 5.3 % (0.0-3.0); IMMATURE GRANULOCYTE % 0.2 % (0-0); LYMPH % 29.7 % (24.0-44.0); MEAN CORPUSCULAR HEMOGLOBIN 30.2 pg (27.0-33.0); MEAN CORPUSCULAR HGB CONC 32.6 g/dl (32.0-36.5); MEAN CORPUSCULAR VOLUME 92.7 fl (80.0-96.0); MONO # 0.9 10^3/uL (0.0-0.8); MONO % 13.2 % (0.0-5.0); NEUTROPHILS # 3.4 10^3/uL (1.8-7.7); NEUTROPHILS % 50.7 % (36.0-66.0); PLATELET COUNT, AUTOMATED 202 10^3/uL (150-450); RED CELL DISTRIBUTION WIDTH 15.2 % (11.5-14.5); WHITE BLOOD COUNT 6.7 10^3/uL (4.0-10.0)
[2017-02-22 10:56] LABS: ALBUMIN 3.7 GM/DL (3.2-5.2); ALBUMIN/GLOBULIN RATIO 1.06 (1.00-1.93); ALKALINE PHOSPHATASE 33 U/L (45-117); ALT/SGPT 23 U/L (12-78); ANION GAP 8 MEQ/L (8-16); AST/SGOT 17 U/L (7-37); BILIRUBIN,TOTAL 0.5 MG/DL (0.2-1.0); BLOOD UREA NITROGEN 17 MG/DL (7-18); CALCIUM LEVEL 9.3 MG/DL (8.8-10.2); CARBON DIOXIDE LEVEL 29 MEQ/L (21-32); CHLORIDE LEVEL 103 MEQ/L (98-107); CHOLESTEROL LEVEL 243 MG/DL (<200); CREATININE FOR GFR 0.95 MG/DL (0.55-1.02); GLOMERULAR FILTRATION RATE > 60.0 (>32); GLUCOSE, FASTING 96 MG/DL (83-110); SODIUM LEVEL 140 MEQ/L (136-145); TOTAL PROTEIN 7.2 GM/DL (6.4-8.2); TRIGLYCERIDES LEVEL 124 MG/DL (<150)
== END ==
LOC: M LAB 09:44
PROVIDERS: ATTEND Emergency Medicine
DX: Z01.818 Encounter for other preprocedural examination (principal); N20.0 Calculus of kidney; I48.0 Paroxysmal atrial fibrillation; I10 Essential (primary) hypertension; N03.9 Chronic nephritic syndrome with unspecified morphologic changes

== ENCOUNTER → 2017-02-22 | Outpatient (CLI) | payer MEDICARE ==
[2017-02-22 10:21] LABS: MEAN CORPUSCULAR HEMOGLOBIN 29.8 pg (27.0-33.0); MEAN CORPUSCULAR HGB CONC 32.2 g/dl (32.0-36.5); MEAN CORPUSCULAR VOLUME 92.4 fl (80.0-96.0); PLATELET COUNT, AUTOMATED 210 10^3/uL (150-450); RED CELL DISTRIBUTION WIDTH 15.1 % (11.5-14.5); WHITE BLOOD COUNT 6.5 10^3/uL (4.0-10.0)
[2017-02-22 10:35] LABS: INR 1.11
[2017-02-22 10:47] LABS: ANION GAP 5 MEQ/L (8-16); BLOOD UREA NITROGEN 16 MG/DL (7-18); CALCIUM LEVEL 9.1 MG/DL (8.8-10.2); CARBON DIOXIDE LEVEL 31 MEQ/L (21-32); CHLORIDE LEVEL 104 MEQ/L (98-107); CREATININE FOR GFR 0.95 MG/DL (0.55-1.02); GLOMERULAR FILTRATION RATE > 60.0 (>32); GLUCOSE, FASTING 95 MG/DL (83-110); SODIUM LEVEL 140 MEQ/L (136-145)
== END ==
LOC: M LAB 09:50
PROVIDERS: ATTEND Nurse Practitioner Women's Health
DX: Z01.818 Encounter for other preprocedural examination (principal); N20.0 Calculus of kidney

== ENCOUNTER → 2017-03-22 | Outpatient (CLI) | payer MEDICARE ==
[~2017-03-22] MED LIST changes: +DIPH25CA PO
[2017-03-22 09:13] LABS: CALCIUM OXALATE CRYSTALS SMALL
[2017-03-22 09:25] LABS: MEAN CORPUSCULAR HEMOGLOBIN 30.3 pg (27.0-33.0); MEAN CORPUSCULAR HGB CONC 32.9 g/dl (32.0-36.5); MEAN CORPUSCULAR VOLUME 92.2 fl (80.0-96.0); PLATELET COUNT, AUTOMATED 237 10^3/uL (150-450); RED CELL DISTRIBUTION WIDTH 14.8 % (11.5-14.5); WHITE BLOOD COUNT 6.7 10^3/uL (4.0-10.0)
[2017-03-22 09:32] LABS: CALCIUM LEVEL 9.3 MG/DL (8.8-10.2); CREATININE FOR GFR 0.98 MG/DL (0.55-1.02); GLOMERULAR FILTRATION RATE 58.1 (>32); POTASSIUM SERUM 4.1 MEQ/L (3.5-5.1)
[2017-03-22 09:36] LABS: INR 1.1
== END ==
LOC: M LAB 08:24
PROVIDERS: ATTEND Urology
DX: Z01.818 Encounter for other preprocedural examination (principal); N20.0 Calculus of kidney; R79.1 Abnormal coagulation profile

== ENCOUNTER → 2017-04-05 | Outpatient (CLI) | payer MEDICARE | LOC: M LAB 08:24 | PROVIDERS: ATTEND Urology | DX: N30.00 Acute cystitis without hematuria (principal) ==

== ENCOUNTER → 2017-04-13 | Day surgery (SDC) | payer MEDICARE ==
[~2017-04-13] VITALS: Ht 167.6 cm; Wt 85.7 kg
[~2017-04-13] MED LIST changes: +ACETAMINOPHEN 650MG ER TAB (TYLENOL ARTHRITIS) PO PRN; +CEPHALEXIN 500 MG CAP PO SCH; +CIPROFLOXACIN 400 MG in APPROPRIATE DILUENT 1 EA IV ONE; +CONRAY-60 60% 50ML VIAL (Q9961) As Ordered ONE; +GENTAMICIN 100 MG in APPROPRIATE DILUENT 1 EA IV ONE; +KEFL500C17 PO; +KETAMINE HCL 200 MG/20 ML VIAL As Ordered ONE; +LR 1,000 ML IV ONE; +LR 1,000 ML IV SCH; +MIDAZOLAM INJ 2 MG/2 ML VIAL (J2250) As Ordered ONE; +ONDANSETRON 4MG/2ML VIAL (J2405) IV PRN; +PROPOFOL 200 MG/20 ML VIAL As Ordered ONE; +SULFAMETHOXAZOLE-TMP; +TYLE650T35 PO; +fentaNYL 100 MCG/2 ML INJECTION (J3010) As Ordered ONE
[2017-04-13] MEDS: PERCOCET 5MG/325MG TAB PO PRN ×2 (11:15→11:50)
--- NOTE | 2017-04-13 18:48 | REP ---
Retrograde pyelogram: Four views. History: Left stent exchange. 50 seconds of fluoroscopy time is reported. Findings: A sequence of four last image hold fluoroscopic spot radiographs of the abdomen document ureteral cannulation, catheterization, and double pigtail ureteral stent placement. No laterality markers are visible. Signed by Prince Youngblood MD 04/14/2017 08:04 A
--- NOTE | 2017-04-15 18:38 | RO ---
DATE OF PROCEDURE: 04/13/2017 PREOPERATIVE DIAGNOSIS: Left ureteral stone and left kidney stone. POSTOPERATIVE DIAGNOSIS: Left ureteral stone and left kidney stone. OPERATIVE PROCEDURE: Cystoscopy, left ureteroscopy, laser stone lithotripsy, basket extraction of stone, left double J stent exchange, Wellington Cook, #6-American. SURGEON: Paul Anthony MD BAR STEWARD: None. ANESTHESIA: General. COMPLICATIONS: None. ESTIMATED BLOOD LOSS: Minimal. HISTORY OF PRESENT ILLNESS: 81-year-old female patient with a left ureteral stent and a stone in the proximal ureter and the lower pole of the kidney measuring about 5 mm and 6 mm. For this reason, she has consented for a cystoscopy, left ureteroscopy, laser stone lithotripsy, basket extraction of stone, plus left double J stent exchange. DESCRIPTION OF PROCEDURE: With the patient under general anesthesia in supine modified low lithotomy position after prepping and draining the area of concern which included the entire genitalia and abdomen, we introduced a 22-American cystoscope with 30 degrees lens under videoscopic guidance. The urethra and bladder neck were totally normal. The bladder had no tumors, no stones, foreign objects. It had a left ureteral orifice occupied by a left double J stent in good position. With the endoscopic forceps we grabbed the stent and cut the tip and passed the guidewire up to the kidney and took the old stent out. Following that wire we placed a ureteral access sheath, 28 cm x 11-American up to the proximal ureter. We took the obturator out and left that wire parallel to the parallel to the ureteral access sheath. At that moment in time we placed a flexible ureteroscope up to the kidney. We had two stones in the lower pole of the kidney 6 mm in size. At that moment in time we grabbed a 200 Micron probe laser fiber and pulverized the stone into multiple fragments. With a ZeroTip basket, 1.8-American in diameter, we grabbed the largest pieces and took it out of the body of the patient. We sent this for biochemical analysis. We the scoped the upper pole, midpole and lower pole of the kidney. There were no other stones to be pulled out. For this reason, we actually in a retrograde fashion removed the ureteroscope and the ureteral access sheath at the same time, placed the cystoscope back and following the guidewire we placed a 6-American Wellington Cook up to the kidney. Once it was in good position, we took the guidewire out and placed a curl in the kidney. We could see the curl in the kidney and curl in the bladder. We then emptied the bladder out and took the cystoscope out. PLAN: The patient will go home with antibiotic and pain medication. He followup at [facility] in about 1 week for removal of left double-J stent. Stones were sent for biochemical analysis.
== END | disposition home or self-care (01) ==
LOC: M SDC 07:11
PROVIDERS: ATTEND Urology
DX: N20.2 Calculus of kidney with calculus of ureter (principal); I11.0 Hypertensive heart disease with heart failure; I50.9 Heart failure, unspecified; E03.9 Hypothyroidism, unspecified; F32.9 Major depressive disorder, single episode, unspecified; D69.6 Thrombocytopenia, unspecified; M19.019 Primary osteoarthritis, unspecified shoulder; I48.91 Unspecified atrial fibrillation; Z86.19 Personal history of other infectious and parasitic diseases; Z86.73 Personal history of transient ischemic attack (TIA), and cerebral infarction without residual deficits; Z87.442 Personal history of urinary calculi; Z79.899 Other long term (current) drug therapy; Z79.01 Long term (current) use of anticoagulants; Z88.1 Allergy status to other antibiotic agents
CPT/HCPCS: 52356; 74420; 82360; 88300; C1769; C1894; C2617; J1580; J2250; J2405; J3010; Q9961

== ENCOUNTER → 2017-05-16 | Outpatient (REF) | payer MEDICARE ==
[2017-05-16 15:05] LABS: APPEARANCE, URINE CLEAR (CLEAR); BACTERIA, URINE AUTO 1+ (NEGATIVE); BILIRUBIN, URINE AUTO NEGATIVE (NEGATIVE); BLOOD, URINE BLOOD NEGATIVE (NEGATIVE); COLOR, URINE YELLOW (YELLOW); GLUCOSE, URINE (UA) AUTO NEGATIVE (NEGATIVE); KETONE, URINE AUTO NEGATIVE (NEGATIVE); LEUKOCYTE ESTERASE, URINE AUTO TRACE (NEGATIVE); NITRITE, URINE AUTO NEGATIVE (NEGATIVE); PROTEIN, URINE AUTO NEGATIVE (NEGATIVE); RBC, URINE AUTO 1 /HPF (0-3); SPECIFIC GRAVITY URINE AUTO 1.006 (1.002-1.035); SQUAMOUS EPITHELIAL CELL UR AU 0 /HPF (0-6); UROBILINOGEN, URINE AUTO 0.2 mg/dL (0.0-2.0); WBC, URINE AUTO 1 /HPF (0-3)
== END ==
LOC: M SMT 14:36
DX: N20.1 Calculus of ureter (principal)
CPT/HCPCS: 81001

== ENCOUNTER → 2017-08-23 | Outpatient (CLI) | payer MEDICARE ==
[2017-08-23 09:23] LABS: BASO # 0.1 10^3/uL (0.0-0.2); BASO % 0.7 % (0.0-1.0); EOS # 0.4 10^3/uL (0.0-0.50); EOS % 5.4 % (0.0-3.0); HEMATOCRIT 39.5 % (36.0-47.0); HEMOGLOBIN 12.9 g/dl (12.0-15.5); IMMATURE GRANULOCYTE % 0.3 % (0-3.0); LYMPH % 27.4 % (24.0-44.0); MEAN CORPUSCULAR HEMOGLOBIN 30.7 pg (27.0-33.0); MEAN CORPUSCULAR HGB CONC 32.7 g/dl (32.0-36.5); MONO # 1.1 10^3/uL (0.0-0.8); MONO % 14.9 % (0.0-5.0); NEUTROPHILS # 3.7 10^3/uL (1.8-7.7); NEUTROPHILS % 51.3 % (36.0-66.0); PLATELET COUNT, AUTOMATED 185 10^3/uL (150-450); RED CELL DISTRIBUTION WIDTH 13.3 % (11.5-14.5); WHITE BLOOD COUNT 7.3 10^3/uL (4.0-10.0)
[2017-08-23 10:01] LABS: ALKALINE PHOSPHATASE 32 U/L (45-117); ALT/SGPT 24 U/L (12-78); ANION GAP 7 MEQ/L (8-16); AST/SGOT 20 U/L (7-37); BILIRUBIN,TOTAL 0.5 MG/DL (0.2-1.0); BLOOD UREA NITROGEN 20 MG/DL (7-18); CARBON DIOXIDE LEVEL 32 MEQ/L (21-32); CHLORIDE LEVEL 105 MEQ/L (98-107); CHOLESTEROL LEVEL 222 MG/DL (<200); CREATININE FOR GFR 1.03 MG/DL (0.55-1.30); GLOMERULAR FILTRATION RATE 54.9 (>32); GLUCOSE, FASTING 97 MG/DL (70-100); POTASSIUM SERUM 4.1 MEQ/L (3.5-5.1); SODIUM LEVEL 144 MEQ/L (136-145); TRIGLYCERIDES LEVEL 83 MG/DL (<150)
[2017-08-23 10:02] LABS: ALBUMIN 3.8 GM/DL (3.2-5.2); ALBUMIN/GLOBULIN RATIO 1.09 (1.00-1.93); HDL CHOLESTEROL 50 MG/DL (>40); LDL CHOLESTEROL 155.4 MG/DL (<100); MAGNESIUM LEVEL 2.1 MG/DL (1.8-2.4); NON-HDL-C 172 MG/DL; TOTAL PROTEIN 7.3 GM/DL (6.4-8.2)
[2017-08-23 10:34] LABS: TOTAL 25(OH) VITAMIN D 50.2 NG/ML (30.0-100.0)
== END ==
LOC: M LAB 08:39
DX: I48.0 Paroxysmal atrial fibrillation (principal); I10 Essential (primary) hypertension; E03.9 Hypothyroidism, unspecified; Z79.899 Other long term (current) drug therapy
CPT/HCPCS: 83735

== ENCOUNTER 2018-01-18 08:31 | Day surgery (SDC) | payer MEDICARE ==
[~2018-01-18 08:31] MED LIST changes: -ACET50TAOT PO; +ACETAMINOPHEN 325 MG TAB PO; -ACETAMINOPHEN 650MG ER TAB (TYLENOL ARTHRITIS) PO PRN; -ALDA25TA PO; -CARV6.25 PO; -CEPHALEXIN 500 MG CAP PO SCH; -CIPR-249 PO; -CIPROFLOXACIN 400 MG in APPROPRIATE DILUENT 1 EA IV ONE; -CONRAY-60 60% 50ML VIAL (Q9961) As Ordered ONE; -DIPH25CA PO; -ELIQ5TAB PO; -FLOM5CAP PO; -FOLI1TAB4 PO; -GENTAMICIN 100 MG in APPROPRIATE DILUENT 1 EA IV ONE; -GLUC1CAP9 PO; -KEFL500C17 PO; -KETAMINE HCL 200 MG/20 ML VIAL As Ordered ONE; -LASI40TA PO; -LEVA750T7 PO; -LEVO25TA5 PO; -LR 1,000 ML IV ONE; -LR 1,000 ML IV SCH; -MIDAZOLAM INJ 2 MG/2 ML VIAL (J2250) As Ordered ONE; -ONDANSETRON 4MG/2ML VIAL (J2405) IV PRN; -OXAZ10CA3 PO; -OXYC1TAB23 PO; -PERC5TAB12 PO; +PHENYLEPHRINE HCL 10 % OPHTH. SOL 5ML OD; -PROB1TAB PO; -PROPOFOL 200 MG/20 ML VIAL As Ordered ONE; -SERT50TA PO; -SULFAMETHOXAZOLE-TMP; -THIA100T6 PO; -THIA100TA PO; -TURM500T PO; -TYLE650T35 PO; -VITA100066 PO; -VITMTA PO; -fentaNYL 100 MCG/2 ML INJECTION (J3010) As Ordered ONE
[2018-01-18] MEDS: PHENYLEPHRINE 2.5% OPHTH SOL 2ML OD (10:11)
[2018-01-18] MEDS: CYCLOPENTOLATE 2% OPHTH SOLN 2ML BTL OD (10:11)
[2018-01-18] MEDS: OFLOXACIN 0.3 % (OCUFLOX) OPTH SOL 5ML OD (10:12)
[2018-01-18] MEDS: TROPICAMIDE 1% OPHTH SOLN 2ML OD (10:12)
[2018-01-18] MEDS: LIDOCAINE 3.5 % 1ML OPHTH TOPICAL GEL OU (10:12)
[2018-01-18] MEDS ORDERED: fentaNYL 100 MCG/2 ML INJECTION (J3010) As Ordered (10:26)
[2018-01-18] MEDS ORDERED: MIDAZOLAM INJ 2 MG/2 ML VIAL (J2250) As Ordered (10:26)
[2018-01-18] MEDS: POVIDONE-IODINE 5% OPHTH PREP SOL 30ML As Ordered (10:44)
[2018-01-18] MEDS: BSS with VANC/TOB/EPI for EYE CASES IR (10:48)
[2018-01-18] MEDS: CEFUROXIME 1MG/0.1ML INTRACAMERAL INJ As Ordered (10:48)
[2018-01-18] MEDS: TRIAMCINOLONE PRES FR 40 MG/ML 1ML(TRIESENCE)(OR EYE ONLY)(J3300 PER 1MG) As Ordered (10:48)
[2018-01-18] MEDS: MOXIFLOXACIN IN BSS 0.25MG/0.25ML INTRACAMERAL INJ (OR EYE ONLY)(J2280) As Ordered (10:48)
[2018-01-18] MEDS: LIDOCAINE 1% SDV 5 ML VIAL As Ordered (10:48)
[2018-01-18] MEDS: HEALON DUET (HEALON 10MG/ML 0.55ML & HEALON ENDOCOAT 30MG/ML 0.85ML) As Ordered (10:48)
[2018-01-18] MEDS ORDERED: HEALON DUET (HEALON 10MG/ML 0.55ML & HEALON ENDOCOAT 30MG/ML 0.85ML) As Ordered (10:50)
[2018-01-18] MEDS ORDERED: AcetaZOLAMIDE 500 MG ER CAP As Ordered (11:24)
[2018-01-18] MEDS ORDERED: TRIMETHOBENZAMIDE 300 MG CAP PO (11:30)
== END 2018-01-18 12:05 | disposition home or self-care (01) ==
LOC: M SDC 08:31
DX: H25.9 Unspecified age-related cataract (principal); I48.91 Unspecified atrial fibrillation; Z79.02 Long term (current) use of antithrombotics/antiplatelets; Z86.73 Personal history of transient ischemic attack (TIA), and cerebral infarction without residual deficits; Z88.0 Allergy status to penicillin; I10 Essential (primary) hypertension; Z79.899 Other long term (current) drug therapy
CPT/HCPCS: 66984

== ENCOUNTER → 2018-03-14 | Outpatient (CLI) | payer MEDICARE ==
[2018-03-14 09:57] LABS: BASO # 0.1 10^3/uL (0.0-0.2); BASO % 0.7 % (0.0-1.0); EOS # 0.3 10^3/uL (0.0-0.50); HEMATOCRIT 39.6 % (36.0-47.0); HEMOGLOBIN 13.1 g/dl (12.0-15.5); IMMATURE GRANULOCYTE % 0.4 % (0-3.0); LYMPH # 1.6 10^3/uL (1.5-4.5); LYMPH % 23.4 % (24.0-44.0); MEAN CORPUSCULAR HEMOGLOBIN 31.4 pg (27.0-33.0); MEAN CORPUSCULAR HGB CONC 33.1 g/dl (32.0-36.5); MONO % 14.5 % (0.0-5.0); NEUTROPHILS # 3.8 10^3/uL (1.8-7.7); PLATELET COUNT, AUTOMATED 174 10^3/uL (150-450); RED BLOOD COUNT 4.17 10^6/uL (4.00-5.40); WHITE BLOOD COUNT 6.8 10^3/uL (4.0-10.0)
[2018-03-14 10:23] LABS: ALBUMIN 3.6 GM/DL (3.2-5.2); ALBUMIN/GLOBULIN RATIO 1.13 (1.00-1.93); ALKALINE PHOSPHATASE 35 U/L (45-117); ALT/SGPT 32 U/L (12-78); ANION GAP 4 MEQ/L (8-16); AST/SGOT 19 U/L (7-37); BILIRUBIN,TOTAL 0.4 MG/DL (0.2-1.0); BLOOD UREA NITROGEN 16 MG/DL (7-18); CARBON DIOXIDE LEVEL 31 MEQ/L (21-32); CHLORIDE LEVEL 107 MEQ/L (98-107); CHOLESTEROL LEVEL 234 MG/DL (<200); CHOLESTEROL RISK RATIO 4.415 (<5); CREATININE FOR GFR 0.87 MG/DL (0.55-1.30); GLOMERULAR FILTRATION RATE > 60.0 (>32); GLUCOSE, FASTING 93 MG/DL (70-100); HDL CHOLESTEROL 53 MG/DL (>40); LDL CHOLESTEROL 164 MG/DL (<100); NON-HDL-C 181 MG/DL; POTASSIUM SERUM 4.6 MEQ/L (3.5-5.1); SODIUM LEVEL 142 MEQ/L (136-145); TOTAL PROTEIN 6.8 GM/DL (6.4-8.2); TRIGLYCERIDES LEVEL 83 MG/DL (<150)
== END ==
LOC: M LAB 09:19
DX: I48.0 Paroxysmal atrial fibrillation (principal); I10 Essential (primary) hypertension
CPT/HCPCS: 83735

== ENCOUNTER → 2018-09-09 | Outpatient (CLI) | payer MEDICARE ==
[~2018-09-09] MED LIST changes: +ACET500T15 PO; -ACETAMINOPHEN 325 MG TAB PO; +CARV6.25 PO; +CIPR-249 PO; +DIPH25CA PO; +ELIQ5TAB PO; +FLOM0.4C39 PO; +FOLI1TAB11 PO; +GLUC1CAP9 PO; +KEFL500C17 PO; +LASI40TA9 PO; +LEVA750T7 PO; +LEVO25TA5 PO; +OXAZ10CA3 PO; +OXYC1TAB23 PO; +PERC5TAB12 PO; -PHENYLEPHRINE HCL 10 % OPHTH. SOL 5ML OD; +PROB1TAB PO; +SERT-141 PO; +SPIR1TAB34 PO; +SULFAMETHOXAZOLE-TMP; +THIA100T7 PO; +THIA100TA PO; +TURM500T PO; +TYLE650T35 PO; +VITA100066 PO; +VITMTA PO; +[UNRECOGNIZED DRUG - OTHER] PO
[2018-09-09 11:18] LABS: ALBUMIN 3.6 GM/DL (3.2-5.2); ALT/SGPT 25 U/L (12-78); BILIRUBIN,TOTAL 0.5 MG/DL (0.2-1.0); BLOOD UREA NITROGEN 21 MG/DL (7-18); CALCIUM LEVEL 8.6 MG/DL (8.8-10.2); CARBON DIOXIDE LEVEL 29 MEQ/L (21-32); CHLORIDE LEVEL 107 MEQ/L (98-107); CREATININE FOR GFR 0.93 MG/DL (0.55-1.30); GLOMERULAR FILTRATION RATE > 60.0 (>32); GLUCOSE, FASTING 90 MG/DL (70-100); SODIUM LEVEL 143 MEQ/L (136-145); TOTAL PROTEIN 7.3 GM/DL (6.4-8.2)
== END ==
LOC: M LAB 09:38
PROVIDERS: ATTEND Physician Assistant
DX: I10 Essential (primary) hypertension (principal); E03.9 Hypothyroidism, unspecified

== ENCOUNTER → 2020-06-16 | Outpatient (CLI) | payer MEDICARE ==
[~2020-06-16] MED LIST changes: +ACET650T61 PO; -DIPH25CA PO; +DIPH25CA32 PO; -TYLE650T35 PO
[2020-06-16 17:48] LABS: ALBUMIN 3.6 GM/DL (3.2-5.2); BILIRUBIN,TOTAL 0.6 MG/DL (0.2-1.0); CALCIUM LEVEL 9.6 MG/DL (8.8-10.2); CREATININE FOR GFR 1.03 MG/DL (0.55-1.30); GLOMERULAR FILTRATION RATE 54.5 (>32); TOTAL PROTEIN 6.8 GM/DL (6.4-8.2)
== END ==
LOC: M WUC 13:28
PROVIDERS: ATTEND Physician Assistant
DX: I10 Essential (primary) hypertension (principal)

== ENCOUNTER → 2020-07-10 | Outpatient (REF) | payer MEDICARE ==
[2020-07-10 12:30] LABS: BASO # 0.1 10^3/uL (0.0-0.2); BASO % 0.9 % (0.0-1.0); EOS # 0.2 10^3/uL (0.0-0.5); EOS % 2.3 % (0.0-3.0); LYMPH # 1.4 10^3/uL (1.5-5.0); LYMPH % 20.1 % (24.0-44.0); MEAN CORPUSCULAR HGB CONC 33.3 g/dl (32.0-36.5); MEAN CORPUSCULAR VOLUME 92.9 fl (80.0-96.0); MONO % 13.8 % (2.0-8.0); NEUTROPHILS # 4.3 10^3/uL (1.5-8.5); NEUTROPHILS % 62.6 % (36.0-66.0); PLATELET COUNT, AUTOMATED 154 10^3/uL (150-450); RED BLOOD COUNT 4.52 10^6/uL (4.00-5.40); WHITE BLOOD COUNT 6.9 10^3/uL (4.0-10.0)
[2020-07-10 13:04] LABS: ALT/SGPT 23 U/L (12-78); BLOOD UREA NITROGEN 18 MG/DL (7-18); CALCIUM LEVEL 9.2 MG/DL (8.8-10.2); CARBON DIOXIDE LEVEL 28 MEQ/L (21-32); CHLORIDE LEVEL 105 MEQ/L (98-107); CREATININE FOR GFR 0.92 MG/DL (0.55-1.30); GLOMERULAR FILTRATION RATE > 60.0 (>32); GLUCOSE, FASTING 88 MG/DL (70-100); SODIUM LEVEL 139 MEQ/L (136-145)
[2020-07-10 13:05] LABS: ALBUMIN 3.8 GM/DL (3.2-5.2); BILIRUBIN,TOTAL 0.5 MG/DL (0.2-1.0); CHOLESTEROL LEVEL 247 MG/DL (<200); CHOLESTEROL RISK RATIO 5.369 (<5); HDL CHOLESTEROL 46 MG/DL (>40); LDL CHOLESTEROL 169 MG/DL (<100); NON-HDL-C 201 MG/DL; TRIGLYCERIDES LEVEL 159 MG/DL (<150)
== END ==
LOC: M LAB REF 11:40
PROVIDERS: ATTEND Physician Assistant
DX: I10 Essential (primary) hypertension (principal); E03.9 Hypothyroidism, unspecified

== ENCOUNTER → 2021-02-18 | Outpatient (REF) | payer MEDICARE ==
[2021-02-18 18:51] LABS: ALBUMIN 3.7 GM/DL (3.2-5.2); BILIRUBIN,TOTAL 0.4 MG/DL (0.2-1.0); CALCIUM LEVEL 9.6 MG/DL (8.8-10.2); CHOLESTEROL RISK RATIO 4.309 (<5); CREATININE FOR GFR 1.03 MG/DL (0.55-1.30); GLOMERULAR FILTRATION RATE 54.3 (>32); POTASSIUM SERUM 4.3 MEQ/L (3.5-5.1); THYROID STIMULATING HORMONE 3.88 uIU/ML (0.358-3.740)
== END ==
LOC: M LAB REF 16:59
PROVIDERS: ATTEND Physician Assistant
DX: I10 Essential (primary) hypertension (principal); E03.9 Hypothyroidism, unspecified; E55.9 Vitamin D deficiency, unspecified

== ENCOUNTER → 2022-04-13 | Outpatient (REF) | payer MEDICARE ==
[2022-04-13 18:29] LABS: CHOLESTEROL RISK RATIO 3.43 (<5); HDL CHOLESTEROL 46.3 MG/DL (>40); LDL CHOLESTEROL 93.9 MG/DL (<100)
[2022-04-13 18:30] LABS: THYROID STIMULATING HORMONE 2.579 uIU/ML (0.55-4.78)
== END ==
LOC: M LAB REF 16:24
PROVIDERS: ATTEND Pediatrics
DX: R32 Unspecified urinary incontinence (principal); E03.9 Hypothyroidism, unspecified; E78.2 Mixed hyperlipidemia

== ENCOUNTER → 2022-10-13 | Outpatient (REF) | payer MEDICARE ==
[~2022-10-13] MED LIST changes: +DIPH-435 PO; -DIPH25CA32 PO
[2022-10-13 17:34] LABS: BASO # 0.1 10^3/uL (0.0-0.2); BASO % 0.9 % (0.0-1.0); EOS # 0.2 10^3/uL (0.0-0.5); EOS % 2.8 % (0.0-3.0); HEMATOCRIT 40.4 % (36.0-47.0); HEMOGLOBIN 12.9 g/dl (12.0-15.5); LYMPH # 1.5 10^3/uL (1.5-5.0); LYMPH % 22.6 % (24.0-44.0); MEAN CORPUSCULAR HEMOGLOBIN 30.8 pg (27.0-33.0); MEAN CORPUSCULAR HGB CONC 31.9 g/dl (32.0-36.5); MEAN CORPUSCULAR VOLUME 96.4 fl (80.0-96.0); MONO # 1.2 10^3/uL (0.0-0.8); MONO % 17.8 % (2.0-8.0); NEUTROPHILS # 3.6 10^3/uL (1.5-8.5); NEUTROPHILS % 55.6 % (36.0-66.0); PLATELET COUNT, AUTOMATED 153 10^3/uL (150-450); RED BLOOD COUNT 4.19 10^6/uL (4.00-5.40); WHITE BLOOD COUNT 6.5 10^3/uL (4.0-10.0)
[2022-10-13 17:53] LABS: THYROID STIMULATING HORMONE 1.311 uIU/ML (0.55-4.78); TOTAL 25(OH) VITAMIN D 108.7 NG/ML (20.0-100.0)
[2022-10-13 18:28] LABS: ALBUMIN 3.8 G/DL (3.2-5.2); BILIRUBIN,TOTAL 0.8 MG/DL (0.3-1.2); CALCIUM LEVEL 9.4 MG/DL (8.3-10.6); CHOLESTEROL RISK RATIO 3.6 (<5); CREATININE FOR GFR 1.13 MG/DL (0.55-1.30); GLOMERULAR FILTRATION RATE 48.7 (>32); LDL CHOLESTEROL 99.6 MG/DL (<100); MAGNESIUM LEVEL 1.8 MG/DL (1.8-2.4); POTASSIUM SERUM 4.3 MMOL/L (3.5-5.1); TOTAL PROTEIN 6.6 G/DL (5.7-8.2)
== END ==
LOC: M LAB REF 16:20
PROVIDERS: ATTEND Pediatrics
DX: E55.9 Vitamin D deficiency, unspecified (principal); I12.9 Hypertensive chronic kidney disease with stage 1 through stage 4 chronic kidney disease, or unspecified chronic kidney disease; E78.2 Mixed hyperlipidemia; E03.9 Hypothyroidism, unspecified; N18.31 Chronic kidney disease, stage 3a

== ENCOUNTER → 2023-07-15 | Outpatient (REF) | payer MEDICARE ==
[2023-07-15 17:13] LABS: CREATININE, URINE 89.5 MG/DL; MAU/CREAT RATIO 45.8 MCG/MG (0.0-30.0)
[2023-07-15 17:50] LABS: BASO # 0.1 10^3/uL (0.0-0.2); BASO % 0.9 % (0.0-1.0); EOS # 0.2 10^3/uL (0.0-0.5); EOS % 2.8 % (0.0-3.0); HEMATOCRIT 40.4 % (36.0-47.0); HEMOGLOBIN 12.8 g/dl (12.0-15.5); LYMPH % 27.3 % (24.0-44.0); MEAN CORPUSCULAR HEMOGLOBIN 30.9 pg (27.0-33.0); MEAN CORPUSCULAR HGB CONC 31.7 g/dl (32.0-36.5); MEAN CORPUSCULAR VOLUME 97.6 fl (80.0-96.0); MONO # 1.1 10^3/uL (0.0-0.8); MONO % 14.7 % (2.0-8.0); NEUTROPHILS % 54.2 % (36.0-66.0); PLATELET COUNT, AUTOMATED 188 10^3/uL (150-450); RED BLOOD COUNT 4.14 10^6/uL (4.00-5.40); WHITE BLOOD COUNT 7.4 10^3/uL (4.0-10.0)
[2023-07-15 18:05] LABS: BLOOD UREA NITROGEN 24 MG/DL (9-23); CALCIUM LEVEL 9.6 MG/DL (8.3-10.6); CARBON DIOXIDE LEVEL 30 MMOL/L (20-31); CHLORIDE LEVEL 104 MMOL/L (98-107); CREATININE FOR GFR 0.81 MG/DL (0.55-1.30); GLOMERULAR FILTRATION RATE > 60.0 (>32); GLUCOSE, FASTING 88 MG/DL (74-106); SODIUM LEVEL 137 MMOL/L (136-145)
[2023-07-15 18:07] LABS: THYROID STIMULATING HORMONE 1.376 uIU/ML (0.55-4.78)
== END ==
LOC: M LAB REF 16:08
PROVIDERS: ATTEND Pediatrics
DX: E03.9 Hypothyroidism, unspecified (principal); K62.5 Hemorrhage of anus and rectum; I10 Essential (primary) hypertension

== ENCOUNTER 2023-11-22 12:49 | Emergency (ER) | payer MEDICARE ==
[~2023-11-22] VITALS: Ht 167.6 cm; Wt 75.0 kg
[2023-11-22 13:54] LABS: BASO % 0.6 % (0.0-1.0); EOS # 0.1 10^3/uL (0.0-0.5); EOS % 2.1 % (0.0-3.0); HEMATOCRIT 40.1 % (36.0-47.0); HEMOGLOBIN 13.2 g/dl (12.0-15.5); LYMPH # 1.3 10^3/uL (1.5-5.0); MEAN CORPUSCULAR HEMOGLOBIN 31.4 pg (27.0-33.0); MEAN CORPUSCULAR HGB CONC 32.9 g/dl (32.0-36.5); MEAN CORPUSCULAR VOLUME 95.2 fl (80.0-96.0); MONO % 14.2 % (2.0-8.0); NEUTROPHILS # 4.3 10^3/uL (1.5-8.5); NEUTROPHILS % 63.7 % (36.0-66.0); PLATELET COUNT, AUTOMATED 162 10^3/uL (150-450); RED BLOOD COUNT 4.21 10^6/uL (4.00-5.40); WHITE BLOOD COUNT 6.7 10^3/uL (4.0-10.0)
[2023-11-22 14:20] LABS: ALBUMIN 3.7 G/DL (3.2-5.2); ALKALINE PHOSPHATASE 36 U/L (46-116); ALT/SGPT 17 U/L (7.0-40); AST/SGOT 18 U/L (<34); BILIRUBIN,TOTAL 0.9 MG/DL (0.3-1.2); BLOOD UREA NITROGEN 15 MG/DL (9-23); CALCIUM LEVEL 9.5 MG/DL (8.3-10.6); CARBON DIOXIDE LEVEL 22 MMOL/L (20-31); CHLORIDE LEVEL 108 MMOL/L (98-107); CREATININE FOR GFR 0.82 MG/DL (0.55-1.30); GLOMERULAR FILTRATION RATE > 60.0 (>32); GLUCOSE, FASTING 93 MG/DL (74-106); SODIUM LEVEL 140 MMOL/L (136-145); TOTAL PROTEIN 6.8 G/DL (5.7-8.2)
[2023-11-22 17:27] VITALS: BP 145/69; TEMP 97; O2SAT 96
== END 2023-11-22 18:00 | disposition home or self-care (01) ==
LOC: M ED 12:49
DX: S09.90XA Unspecified injury of head, initial encounter (principal); S00.93XA Contusion of unspecified part of head, initial encounter; R93.0 Abnormal findings on diagnostic imaging of skull and head, not elsewhere classified; W01.118A Fall on same level from slipping, tripping and stumbling with subsequent striking against other sharp object, initial encounter; J34.2 Deviated nasal septum; I48.92 Unspecified atrial flutter; K21.9 Gastro-esophageal reflux disease without esophagitis; I10 Essential (primary) hypertension; M54.50 Low back pain, unspecified; E03.9 Hypothyroidism, unspecified; Z86.79 Personal history of other diseases of the circulatory system; Z86.73 Personal history of transient ischemic attack (TIA), and cerebral infarction without residual deficits; Z88.1 Allergy status to other antibiotic agents; Z88.0 Allergy status to penicillin; Z88.2 Allergy status to sulfonamides; Z79.01 Long term (current) use of anticoagulants; Z79.899 Other long term (current) drug therapy; Z79.1 Long term (current) use of non-steroidal anti-inflammatories (NSAID); Y92.009 Unspecified place in unspecified non-institutional (private) residence as the place of occurrence of the external cause; Y93.89 Activity, other specified; Y99.9 Unspecified external cause status

== ENCOUNTER → 2024-03-09 | Outpatient (REF) | payer MEDICARE ==
[2024-03-09 17:32] LABS: CREATININE, URINE 58.3 MG/DL
[2024-03-09 17:33] LABS: MAU/CREAT RATIO 65.1 MCG/MG (0.0-30.0)
[2024-03-09 18:00] LABS: BLOOD UREA NITROGEN 22 MG/DL (9-23); CALCIUM LEVEL 9.6 MG/DL (8.3-10.6); CARBON DIOXIDE LEVEL 29 MMOL/L (20-31); CHLORIDE LEVEL 105 MMOL/L (98-107); CREATININE FOR GFR 0.85 MG/DL (0.55-1.30); GLOMERULAR FILTRATION RATE > 60.0 (>32); GLUCOSE, FASTING 91 MG/DL (74-106); POTASSIUM SERUM 4.2 MMOL/L (3.5-5.1); SODIUM LEVEL 139 MMOL/L (136-145)
[2024-03-09 18:05] LABS: THYROID STIMULATING HORMONE 1.523 uIU/ML (0.55-4.78)
== END ==
LOC: M LAB REF 16:15
PROVIDERS: ATTEND Pediatrics
DX: I10 Essential (primary) hypertension (principal); E03.9 Hypothyroidism, unspecified

== ENCOUNTER → 2024-10-30 | Outpatient (REF) | payer MEDICARE ==
[~2024-10-30] MED LIST changes: -FLOM0.4C39 PO; +TAMS-18 PO
[2024-10-30 13:08] LABS: CREATININE, URINE 32.7 MG/DL; MALB URINE SIEMENS 30.0 MG/L; MAU/CREAT RATIO 91.7 MCG/MG (0.0-30.0)
== END ==
LOC: M LAB REF 11:32
PROVIDERS: ATTEND Pediatrics
DX: I10 Essential (primary) hypertension (principal)

== ENCOUNTER 2024-12-06 09:55 | Inpatient (IN) | payer MEDICARE ==
[~2024-12-06] VITALS: Ht 167.6 cm; Wt 74.0 kg
[2024-12-06 10:23] LABS: BASO # 0.1 10^3/uL (0.0-0.2); BASO % 0.9 % (0.0-1.0); EOS # 0.2 10^3/uL (0.0-0.5); EOS % 3.0 % (0.0-3.0); LYMPH # 1.5 10^3/uL (1.5-5.0); LYMPH % 21.6 % (24.0-44.0); MONO # 1.3 10^3/uL (0.0-0.8); MONO % 18.7 % (2.0-8.0); NEUTROPHILS # 3.9 10^3/uL (1.5-8.5); NEUTROPHILS % 55.4 % (36.0-66.0); PLATELET COUNT, AUTOMATED 191 10^3/uL (150-450)
[2024-12-06] MEDS ORDERED: METO1TAB32 PO (10:26)
[2024-12-06] MEDS ORDERED: LEVO50TA5 PO (10:26)
[2024-12-06 10:49] LABS: INR 1.03
[2024-12-06 11:09] LABS: ALT/SGPT 13.0 U/L (7.0-40); AST/SGOT 21.0 U/L (<34); CALCIUM LEVEL 8.6 MG/DL (8.3-10.6); CARBON DIOXIDE LEVEL 28.0 MMOL/L (20-31); CHLORIDE LEVEL 105.0 MMOL/L (98-107); CREATININE FOR GFR 0.93 MG/DL (0.55-1.30); GLOMERULAR FILTRATION RATE 59.5 (>32); MAGNESIUM LEVEL 1.7 MG/DL (1.8-2.4); POTASSIUM SERUM 4.0 MMOL/L (3.5-5.1); SODIUM LEVEL 143.0 MMOL/L (136-145)
[2024-12-06 11:31] LABS: KETONE, URINE AUTO RFX NEGATIVE (NEGATIVE); RBC, URINE AUTO RFX 6 /HPF (0-3); SQUAM EPITHELIAL CELL UR AURFX 0 /HPF (0-6)
[2024-12-06 11:34] LABS: LEUKOCYTE ESTERASE UR AUTO RFX 3+ (NEGATIVE); NITRITE, URINE AUTO RFX POSITIVE (NEGATIVE); WBC, URINE AUTO RFX 155 /HPF (0-3)
[2024-12-06] MEDS ORDERED: ACET650T61 PO (11:47)
[2024-12-06] MEDS ORDERED: ISOVUE-370 76% 100 ML VIAL As Ordered ONE (12:29)
[2024-12-06] MEDS ORDERED: HOME MED LIST COMPLETE! XX SCH (12:40)
[2024-12-06] MEDS: cefTRIAXone SOD 1 GM in DEXTROSE 5% (D5W) ADV/MINI-BAG 50 ML IV ONE (13:22)
[2024-12-06] MEDS: METOPROLOL SUCC. 25 MG *XL* TAB PO SCH (21:01)
[2024-12-06] MEDS: APIXABAN 5 MG TAB PO SCH (21:01)
[2024-12-07 00:16] VITALS: BP 138/68; TEMP 97.2; O2SAT 90
[2024-12-07 04:41] VITALS: BP 109/60; TEMP 97.2; O2SAT 94
[2024-12-07] MEDS: LEVOTHYROXINE 50 MCG TABLET (0.05 MG) PO SCH (06:07)
[2024-12-07 07:47] LABS: BASO # 0.1 10^3/uL (0.0-0.2); BASO % 0.8 % (0.0-1.0); EOS # 0.2 10^3/uL (0.0-0.5); EOS % 2.5 % (0.0-3.0); LYMPH # 1.7 10^3/uL (1.5-5.0); LYMPH % 19.9 % (24.0-44.0); MONO # 1.2 10^3/uL (0.0-0.8); MONO % 14.5 % (2.0-8.0); NEUTROPHILS # 5.2 10^3/uL (1.5-8.5); NEUTROPHILS % 61.9 % (36.0-66.0); PLATELET COUNT, AUTOMATED 196 10^3/uL (150-450)
[2024-12-07 07:59] LABS: INR 1.09
[2024-12-07 08:06] LABS: ALT/SGPT 13.0 U/L (7.0-40); AST/SGOT 19.0 U/L (<34); CALCIUM LEVEL 8.7 MG/DL (8.3-10.6); CARBON DIOXIDE LEVEL 27.0 MMOL/L (20-31); CHLORIDE LEVEL 107.0 MMOL/L (98-107); CHOLESTEROL LEVEL 200.0 MG/DL (<200); CHOLESTEROL RISK RATIO 5.36 (<5); CREATININE FOR GFR 0.8 MG/DL (0.55-1.30); GLOMERULAR FILTRATION RATE 71.3 (>32); LDL CHOLESTEROL 144.7 MG/DL (<100); MAGNESIUM LEVEL 1.7 MG/DL (1.8-2.4); NON-HDL-C 162.7 MG/DL; POTASSIUM SERUM 4.2 MMOL/L (3.5-5.1); SODIUM LEVEL 144.0 MMOL/L (136-145); TRIGLYCERIDES LEVEL 90.0 MG/DL (<150)
[2024-12-07] MEDS: SPIRONOLACTONE 25 MG TAB PO SCH (08:12)
[2024-12-07] MEDS: ASPIRIN 81 MG ENTERIC TABLET PO SCH (08:12)
[2024-12-07] MEDS: ATORVASTATIN 20 MG TAB PO SCH (08:13)
[2024-12-07] MEDS: ACETAMINOPHEN 650 MG ER TAB PO PRN (08:13)
[2024-12-07] MEDS: hydroCHLOROthiazide 25 MG TAB PO SCH (08:13)
[2024-12-07 08:22] LABS: ESTIMATED AVERAGE GLUCOSE 97.0 MG/DL (60-110)
[2024-12-07 13:00] VITALS: BP 107/59; TEMP 97; O2SAT 96
[2024-12-07] MEDS: cefTRIAXone SOD 1 GM in DEXTROSE 5% (D5W) ADV/MINI-BAG 50 ML IV SCH (13:48)
[2024-12-07 20:22] VITALS: BP 117/65; TEMP 97.2; O2SAT 97
[2024-12-07] MEDS: RAMELTEON 8 MG TAB PO SCH (21:00)
[2024-12-08 04:19] VITALS: BP 120/65; TEMP 96.8; O2SAT 96
[2024-12-08 06:45] LABS: BASO # 0.1 10^3/uL (0.0-0.2); BASO % 1.0 % (0.0-1.0); EOS # 0.3 10^3/uL (0.0-0.5); EOS % 4.2 % (0.0-3.0); LYMPH # 2.0 10^3/uL (1.5-5.0); LYMPH % 29.0 % (24.0-44.0); MONO # 1.1 10^3/uL (0.0-0.8); MONO % 16.0 % (2.0-8.0); NEUTROPHILS # 3.3 10^3/uL (1.5-8.5); NEUTROPHILS % 49.5 % (36.0-66.0); PLATELET COUNT, AUTOMATED 218 10^3/uL (150-450)
[2024-12-08 07:10] LABS: CALCIUM LEVEL 9.0 MG/DL (8.3-10.6); CARBON DIOXIDE LEVEL 27.0 MMOL/L (20-31); CHLORIDE LEVEL 104.0 MMOL/L (98-107); CREATININE FOR GFR 0.83 MG/DL (0.55-1.30); GLOMERULAR FILTRATION RATE 68.2 (>32); MAGNESIUM LEVEL 1.6 MG/DL (1.8-2.4); POTASSIUM SERUM 4.1 MMOL/L (3.5-5.1); SODIUM LEVEL 142.0 MMOL/L (136-145)
[2024-12-08 08:04] VITALS: BP 113/64
[2024-12-08] MEDS: MAG SULF 1GM/100ML (MAG RUN) 1 GM in IV 1 EA IV SCH (08:04)
[2024-12-08] MEDS: ATORVASTATIN 20 MG TAB PO SCH (08:04)
[2024-12-08 12:00] VITALS: BP 109/72; TEMP 97; O2SAT 92
[2024-12-08] MEDS ORDERED: ATOR1TAB21 PO (12:06)
[2024-12-08] MEDS ORDERED: CEPH500C PO (12:06)
[2024-12-08] MEDS ORDERED: MAGO400T2 PO (12:06)
== END 2024-12-08 13:20 | disposition home or self-care (01) | DRG 65 ==
LOC: EDBD 09:55 → M ED 09:55 → M ED INP 09:56 → M MSPAV 12-07 00:05 → OBSVTOIN 12-07 14:48
PROVIDERS: ADMIT Internal Medicine; ATTEND Family Medicine
DX: I63.512 Cerebral infarction due to unspecified occlusion or stenosis of left middle cerebral artery (principal); I50.32 Chronic diastolic (congestive) heart failure; N39.0 Urinary tract infection, site not specified; K62.5 Hemorrhage of anus and rectum; I48.91 Unspecified atrial fibrillation; D69.6 Thrombocytopenia, unspecified; F32.A Depression, unspecified; E03.9 Hypothyroidism, unspecified; R29.810 Facial weakness; M19.90 Unspecified osteoarthritis, unspecified site; B96.20 Unspecified Escherichia coli [E. coli] as the cause of diseases classified elsewhere; R47.81 Slurred speech; K58.1 Irritable bowel syndrome with constipation; E83.42 Hypomagnesemia; Z90.49 Acquired absence of other specified parts of digestive tract; Z79.01 Long term (current) use of anticoagulants; Z79.890 Hormone replacement therapy; Z79.899 Other long term (current) drug therapy

== ENCOUNTER → 2024-12-25 | Outpatient (REF) | payer MEDICARE ==
[~2024-12-25] MED LIST changes: +ATOR1TAB21 PO; +CEPH500C PO; +LEVO50TA5 PO; +MAGO400T2 PO; +METO1TAB32 PO
[2024-12-25 13:43] LABS: ALT/SGPT 16.0 U/L (7.0-40); AST/SGOT 23.0 U/L (<34); CALCIUM LEVEL 9.5 MG/DL (8.3-10.6); CARBON DIOXIDE LEVEL 29.0 MMOL/L (20-31); CHLORIDE LEVEL 102.0 MMOL/L (98-107); CHOLESTEROL LEVEL 146.0 MG/DL (<200); CHOLESTEROL RISK RATIO 3.5 (<5); CREATININE FOR GFR 1.02 MG/DL (0.55-1.30); GLOMERULAR FILTRATION RATE 52.9 (>32); LDL CHOLESTEROL 89.4 MG/DL (<100); MAGNESIUM LEVEL 1.8 MG/DL (1.8-2.4); NON-HDL-C 104.4 MG/DL; POTASSIUM SERUM 4.6 MMOL/L (3.5-5.1); SODIUM LEVEL 141.0 MMOL/L (136-145); TRIGLYCERIDES LEVEL 75.0 MG/DL (<150)
== END ==
LOC: M LAB REF 12:05
PROVIDERS: ATTEND Pediatrics
DX: I63.9 Cerebral infarction, unspecified (principal); E03.9 Hypothyroidism, unspecified; E83.42 Hypomagnesemia

== ENCOUNTER 2025-03-08 16:51 | Emergency (ER) | payer MEDICARE ==
[~2025-03-08] VITALS: Ht 167.6 cm; Wt 68.6 kg
[2025-03-08 17:43] LABS: BASO # 0.1 10^3/uL (0.0-0.2); BASO % 0.9 % (0.0-1.0); EOS # 0.2 10^3/uL (0.0-0.5); EOS % 2.4 % (0.0-3.0); LYMPH # 3.1 10^3/uL (1.5-5.0); LYMPH % 33.4 % (24.0-44.0); MONO # 1.4 10^3/uL (0.0-0.8); MONO % 14.9 % (2.0-8.0); NEUTROPHILS # 4.4 10^3/uL (1.5-8.5); NEUTROPHILS % 47.9 % (36.0-66.0); PLATELET COUNT, AUTOMATED 238 10^3/uL (150-450)
[2025-03-08 18:09] LABS: CALCIUM LEVEL 9.4 MG/DL (8.3-10.6); CARBON DIOXIDE LEVEL 27.0 MMOL/L (20-31); CHLORIDE LEVEL 101.0 MMOL/L (98-107); CK-MB VALUE MASS 1.5 NG/ML (<3.6); CREATININE FOR GFR 1.43 MG/DL (0.55-1.30); GLOMERULAR FILTRATION RATE 35.3 (>32); MAGNESIUM LEVEL 1.7 MG/DL (1.8-2.4); POTASSIUM SERUM 4.5 MMOL/L (3.5-5.1); SODIUM LEVEL 141.0 MMOL/L (136-145)
[2025-03-08 18:14] LABS: FREE T4 1.53 NG/DL (0.89-1.76)
[2025-03-08 18:22] LABS: CPK CREATINE PHOSPHOKINASE 38.0 U/L (34-145); MB/CK RELATIVE INDEX 3.94 (< OR =4)
[2025-03-08] MEDS ORDERED: ISOVUE-370 76% 100 ML VIAL As Ordered ONE (18:42)
[2025-03-08] MEDS: NS 500 ML IV ONE (18:49)
[2025-03-08] MEDS: MAGNESIUM OXIDE 400 MG TAB PO ONE (18:50)
[2025-03-08 19:05] LABS: CK-MB VALUE MASS 1.2 NG/ML (<3.6)
[2025-03-08 19:10] LABS: CPK CREATINE PHOSPHOKINASE 34.0 U/L (34-145); MB/CK RELATIVE INDEX 3.52 (< OR =4)
[2025-03-08 20:54] LABS: CK-MB VALUE MASS 1.2 NG/ML (<3.6)
[2025-03-08 20:55] LABS: CPK CREATINE PHOSPHOKINASE 31.0 U/L (34-145); MB/CK RELATIVE INDEX 3.87 (< OR =4)
[2025-03-08 21:26] VITALS: O2SAT 95
[2025-03-08 21:45] VITALS: BP 121/62; TEMP 98.5; O2SAT 98
== END 2025-03-08 21:56 | disposition home or self-care (01) ==
LOC: M ED 16:51
DX: R07.9 Chest pain, unspecified (principal); I45.81 Long QT syndrome; I48.92 Unspecified atrial flutter; I48.91 Unspecified atrial fibrillation; I10 Essential (primary) hypertension; E03.9 Hypothyroidism, unspecified; K58.9 Irritable bowel syndrome, unspecified; F32.A Depression, unspecified; Z86.73 Personal history of transient ischemic attack (TIA), and cerebral infarction without residual deficits; Z79.1 Long term (current) use of non-steroidal anti-inflammatories (NSAID); Z79.01 Long term (current) use of anticoagulants; Z79.899 Other long term (current) drug therapy
CPT/HCPCS: 70450; 71045; 71275; 80048; 82550; 82553; 83735; 84439; 84443; 84484; 85025; 93005; 93041; 94760; 96360; 96361; 99285; Q9967